=== PATIENT | male | born 1985 | race Caucasian/White ===

== ENCOUNTER 2022-01-24 16:14 | Inpatient (IN) | payer BC, SELFPAY ==
[2022-01-24] VITALS (43 sets, daily range): BP systolic 95–116; BP diastolic 42–81; PULSE 95–109; RESP 11–20; TEMP 36.4–36.7; O2SAT 95–100; BMI 25.9
--- NOTE | ~2022-01-24 | XR_ITS ---
EXAMINATION: XR chest 1V portable DATE: 01/26/2022 06:02 INDICATION: Increased oxygen demands. TECHNIQUE: A single frontal view of the chest was obtained. COMPARISON: Chest single view 01/25/2022, CT abdomen and pelvis 01/24/2022 FINDINGS: There is a small left pleural effusion. There are airspace opacities at left lung base. No pneumothorax. The heart size is normal. A right upper extremity peripherally inserted central venous catheter (PICC) is seen with tip in the superior vena cava. There is an old healed fracture of left c lavicle. IMPRESSION: 1. Stable small left pleural effusion. 2. Stable airspace opacities at left lung base, consistent with atelectasis or less likely pneumonia. Reviewed, dictated and finalized at location A.
--- NOTE | ~2022-01-24 | XR_ITS ---
EXAMINATION: XR chest 1V portable DATE: 01/28/2022 23:26 INDICATION: Shortness of breath. TECHNIQUE: A single frontal view of the chest was obtained. COMPARISON: Chest single view 01/28/2022 FINDINGS: There are airspace opacities in all lung zones bilaterally with a perihilar predominance. T here is a small left pleural effusion. No pneumothorax. The heart size is normal. There is an old hea led left clavicle fracture. A right upper extremity peripherally inserted central venous catheter (PI CC) is seen with tip at the superior cavoatrial junction. IMPRESSION: 1. Worsened diffuse lung disease, consistent with pulmonary edema versus pneumonia. 2. Small left pleural effusion. Reviewed, dictated and finalized at location A. IMPRESSION: 1. Worsened diffuse lung disease, consistent with pulmonary edema versus pneumo john. 2. Small left pleural effusion.
--- NOTE | ~2022-01-24 | XR_ITS ---
EXAMINATION: XR chest 1V portable DATE: 01/30/2022 04:22 INDICATION: Shortness of breath. TECHNIQUE: A single frontal view of the chest was obtained. COMPARISON: Chest single view 01/29/2022, CT abdomen and pelvis 01/24/2022 FINDINGS: There are airspace opacities in all lung zones bilaterally with a perihilar and left basila r predominance. There is a small left pleural effusion. No pneumothorax. The heart size is normal. A right upper extremity peripherally inserted central venous catheter (PICC) is seen with tip at the saha perior cavoatrial junction. There is an old healed fracture of left clavicle. IMPRESSION: 1. Stable diffuse lung disease, consistent with pulmonary edema versus pneumonia. 2. Stable small left pleural effusion. Reviewed, dictated and finalized at location A. IMPRESSION: 1. Stable diffuse lung disease, consistent with pulmonary edema versus pneumoni a. 2. Stable small left pleural effusion.
--- NOTE | ~2022-01-24 | XR_ITS ---
EXAMINATION: XR chest 1V DATE: 01/28/2022 10:26 INDICATION: Hypoxia TECHNIQUE: A lateral view of the chest was obtained. COMPARISON: Frontal view of the chest dated 01/28/2022 at 9:44 AM FINDINGS: Again seen are opacities in the mid and lower lung zones. This is most dense posteriorly with obscura tion of the posterior sulcus consistent with small bilateral pleural effusions. No pneumothorax. IMPRESSION: 1. Small bilateral pleural effusions associated with the previously noted lung disease in the bilater al mid and lower lung zones consistent with pulmonary edema, atelectasis, pneumonia or some combinati on thereof. Reviewed, dictated and finalized at location B. IMPRESSION: 1. Small bilateral pleural effusions associated with the previously noted lung disease in the bilateral mid and lower lung zones consistent with pulmonary arabella ma, atelectasis, pneumonia or some combination thereof.
--- NOTE | ~2022-01-24 | US_ITS ---
US renal BI 01/25/2022 08:24 Procedure: Realtime transabdominal ultrasound of the kidneys and bladder. Indication: Acute renal insufficiency. Comparison: No prior studies for comparison. Findings: Renal echotexture is normal bilaterally without hydronephrosis, contour deforming mass or r enal calculus. The right kidney measures 11.3 cm and left kidney measures 11.4 cm. Bladder is not vi sualized. Incidental note is made of splenomegaly. Spleen measures 18.3 cm. Impression: 1: Unremarkable renal ultrasound. No stones, masses or hydronephrosis. 2: Splenomegaly. Reviewed, dictated and finalized at location A. Impression: 1: Unremarkable renal ultrasound. No stones, masses or hydronephrosis. 2: Splenomegaly.
--- NOTE | ~2022-01-24 | XR_ITS ---
EXAMINATION: XR chest 1V Exam Date/Time: 01/24/2022 18:42 CDT HISTORY: SOB Comparison: 08/11/2010. RESULT: Lines, tubes, and devices: None. Lungs and pleura: Linear and subsegmental left basilar opacities, with volume loss. Left lateral cos tophrenic angle blunting. Cardiomediastinal silhouette: Stable. Other: No acute osseous or upper abdominal finding. IMPRESSION: Left basilar atelectasis. Small left pleural effusion. Reviewed, dictated and finalized at location K.
--- NOTE | ~2022-01-24 | US_ITS ---
EXAMINATION: US paracentesis abd w/image DATE: 01/26/2022 09:36 INDICATION: Ascites. TECHNIQUE: The procedure and its risks, benefits, and alternatives were discussed with the patient. P otential risks discussed included bleeding and infection. The skin was prepped and draped in sterile fashion. 1% lidocaine was used for local anesthesia. Under ultrasound guidance, a 5 Fr catheter with trochar was advanced into the ascites in the left lower quadrant. Fluid was aspirated. The catheter w as removed, and a dressing was applied. There were no immediate complications. FINDINGS: Ultrasound images demonstrate ascites and the catheter within the fluid. IMPRESSION: 1. Successful ultrasound-guided paracentesis yielding 2420 mL of faith-colored fluid. Reviewed, dictated and finalized at location A.
--- NOTE | ~2022-01-24 | XR_ITS ---
EXAMINATION: XR chest 1V portable DATE: 01/31/2022 07:06 INDICATION: Pneumonia. TECHNIQUE: A single frontal view of the chest was obtained. COMPARISON: Chest single view 01/30/2022, chest CT 01/30/2022 FINDINGS: There are airspace opacities in all lung zones bilaterally with a perihilar and left basila r predominance. There is a small left pleural effusion. No pneumothorax. The heart size is normal. A right upper extremity peripherally inserted central venous catheter (PICC) is seen with tip at the saha perior cavoatrial junction. There is an old healed fracture of left clavicle. IMPRESSION: 1. Diffuse lung disease with mild worsening on the right, consistent with pulmonary edema versus pneu monia. 2. Stable small left pleural effusion. Reviewed, dictated and finalized at location A. IMPRESSION: 1. Diffuse lung disease with mild worsening on the right, consistent with pulmo nary edema versus pneumonia. 2. Stable small left pleural effusion.
--- NOTE | ~2022-01-24 | US_ITS ---
US abdomen limited INDICATION: Elevated bilirubin. PROCEDURE: Realtime right upper abdominal ultrasound. COMPARISON: Ultrasound dated 11/09/2008 FINDINGS: The pancreas is normal without focal mass or pancreatic ductal dilation. Liver echotexture is increased. There is a nodular appearance to the liver surface, compatible with cirrhosis. There i s ascites. There is gallbladder wall thickening with sludge. There is to and fro flow in the portal vein which is dilated measuring 15 mm, consistent with portal hypertension. The gallbladder is normal without stones, gallbladder wall thickening or pericholecystic fluid. Comm on bile duct measures 4 mm. No sonographic Rocha's sign. IMPRESSION: 1: Cirrhosis of the liver with portal hypertension. 2: Gallbladder wall thickening with sludge. 3: Ascites. Reviewed, dictated and finalized at location A.
--- NOTE | ~2022-01-24 | XR_ITS ---
EXAMINATION: XR chest 1V portable DATE: 01/28/2022 09:47 INDICATION: Shortness of breath TECHNIQUE: frontal view of the chest was obtained. COMPARISON: Chest radiograph dated 01/26/2022 FINDINGS: Right upper extremity peripherally inserted central venous catheter (PICC) tip at the caudal superio r vena cava. Airspace opacities in the bilateral mid and lower lung zones. There are few curly B-line s at the lateral right lower lung zone consistent with pulmonary edema. No pneumothorax or definitive pleural effusion. The cardiomediastinal silhouette is normal. Old healed left clavicle fracture. IMPRESSION: 1. Mild pulmonary edema with patchy airspace process in the bilateral mid and lower lung zones which could represent moderate more focal alveolar edema, pneumonia, atelectasis or some combination thereo f. Reviewed, dictated and finalized at location B. IMPRESSION: 1. Mild pulmonary edema with patchy airspace process in the bilateral mid and l ower lung zones which could represent moderate more focal alveolar edema, pneum onia, atelectasis or some combination thereof.
--- NOTE | ~2022-01-24 | US_ITS ---
EXAMINATION: US abdomen limited DATE: 01/30/2022 12:40 INDICATION: Ascites. TECHNIQUE: Multiple grayscale ultrasound images of the abdomen were obtained. COMPARISON: None FINDINGS: A survey of the 4 quadrants of the abdomen demonstrates no ascites. IMPRESSION: 1. No ascites. The paracentesis was canceled. Reviewed, dictated and finalized at location A.
--- NOTE | ~2022-01-24 | CT_ITS ---
EXAMINATION: CT chest high resolution wo co DATE: 01/30/2022 17:43 INDICATION: Shortness of breath, concern for pulmonary hemorrhage TECHNIQUE: Computed tomography (CT) of the chest was performed without intravenous contrast. The dose -length product (DLP) was 496.40 mGy-cm. Automated exposure control and iterative reconstruction tech nique were employed. COMPARISON: None FINDINGS: There are widespread patchy groundglass and interstitial opacities throughout all lung zone s. There are small pleural effusions. Dependent atelectasis is noted. A right upper extremity PICC en ds with its tip in the distal superior vena cava. The heart size is normal. There is mediastinal and bilateral hilar lymphadenopathy, likely reactive. No pneumothorax is identified. There are mild age-i ndeterminate thoracic compression fractures. IMPRESSION: 1. Diffuse lung disease, consistent with pulmonary edema and/or pneumonia. Finding could reflect pulm onary hemorrhage given the clinical concern however CT findings are nonspecific. Reviewed, dictated and finalized at location F. IMPRESSION: 1. Diffuse lung disease, consistent with pulmonary edema and/or pneumonia. Find ing could reflect pulmonary hemorrhage given the clinical concern however CT fi ndings are nonspecific.
--- NOTE | ~2022-01-24 | XR_ITS ---
XR chest 1V portable 01/25/2022 14:13 Indication: Shortness of breath Procedure: AP portable chest Comparison: Comparison to multiple prior studies sequentially, with oldest reviewed study dated 07/31. Findings: Bilateral perihilar airspace disease. There is peribronchial thickening. PICC line tip in t he SVC. Small left effusion. No pneumothorax. Impression: 1: Bilateral perihilar airspace disease may represent edema or pneumonia. 2: Small left pleural effusion. Reviewed, dictated and finalized at location A. Impression: 1: Bilateral perihilar airspace disease may represent edema or pneumonia. 2: Small left pleural effusion.
--- NOTE | ~2022-01-24 | XR_ITS ---
EXAMINATION: XR chest 1V portable INDICATION: Shortness of breath TECHNIQUE: Portable AP chest at 1757 hours COMPARISON: 01/28/2022 FINDINGS: Diffuse opacities persist in all lung zones with slight interval worsening. There is a smal l left pleural effusion. No pneumothorax is identified. The heart size is normal. A right upper extre mity PICC ends with its tip in the distal superior vena cava. IMPRESSION: 1. Diffuse lung disease with interval worsening, consistent with pneumonia and/or pulmonary edema. 2. Small left pleural effusion. Reviewed, dictated and finalized at location F. IMPRESSION: 1. Diffuse lung disease with interval worsening, consistent with pneumonia and/ or pulmonary edema. 2. Small left pleural effusion.
--- NOTE | ~2022-01-24 | XR_ITS ---
XR chest PICC line 01/25/2022 09:32 Indication: PICC line insertion Procedure: AP portable chest Comparison: Comparison to multiple prior studies sequentially, with oldest reviewed study dated 11/06. Findings: Heart size normal. There are bilateral diffuse interstitial infiltrates. Small left pleural effusion. No pneumothorax. Healed left clavicular fracture. No acute osseous abnormality. PICC line tip in the SVC. Impression: 1: Diffuse bilateral interstitial infiltrates which may represent edema or pneumonia. Reviewed, dictated and finalized at location A. Impression: 1: Diffuse bilateral interstitial infiltrates which may represent edema or pneu monia.
--- NOTE | ~2022-01-24 | CT_ITS ---
EXAMINATION: CT abdomen pelvis w con DATE: 01/24/2022 18:40 INDICATION: diffuse abd pain TECHNIQUE: Computed tomography (CT) of the abdomen and pelvis was performed with 100 mL Omnipaque-350 intravenous contrast. Automated exposure control and iterative reconstruction technique were employe d. The dose-length product was 1162.08 mGy-cm. COMPARISON: 05/16/2007, report not available. FINDINGS: Evaluation of the upper abdomen, particularly liver, limited by beam hardening from arm positioning. Lower thorax: Left basilar atelectasis. Small left pleural effusion. Liver: Heterogeneous, hypodense, nodular appearing liver. Multiple areas of potential liver cysts or other lesions, poorly evaluated. Biliary/Gallbladder: Gallbladder is normal. No bile duct dilation. Pancreas: No mass or duct dilation. Spleen: Enlarged. Adrenals:No mass. Kidneys: No mass, stone, or hydronephrosis. GI tract: No small or large bowel dilation. Normal appendix. Mesentery/Peritoneum: No ascites, mass, or free air. Retroperitoneum: No mass. Pelvis: Pelvic organs are within normal limits. Soft Tissues: Body wall edema Bones: Mild superior endplate deformity at T8 and T9, otherwise no acute osseous finding. IMPRESSION: Small left pleural effusion. Cirrhosis, with portal hypertension. Possible liver lesions, consider no nemergent, outpatient MR of the liver for further evaluation. Moderate ascites. Mild body wall edema. Presumed old mild compression deformities at T8 and T9, unless accompanied by pain/tenderness. Reviewed, dictated and finalized at location K. IMPRESSION: Small left pleural effusion. Cirrhosis, with portal hypertension. Possible live r lesions, consider nonemergent, outpatient MR of the liver for further evaluat ion. Moderate ascites. Mild body wall edema. Presumed old mild compression defo rmities at T8 and T9, unless accompanied by pain/tenderness.
--- NOTE | 2022-01-24 17:07 | ED.WEAKNESS ---
HPI - Weakness General Chief complaint: Weakness <BENJI Mckeon Last Filed: 01/24/22 22:55> Stated complaint: fatigue, difficulty walking <Ban Hernandez PA-C - Last Filed: 01/24/22 22:55> Time Seen by Provider: 01/24/22 16:55 <BENJI Mckeon Last Filed: 01/24/22 22:55> History of Present Illness HPI Narrative: Patient is a 36-year-old male here for evaluation of weakness over the past week. Patient was diagnosed with liver failure in July of this year at a hospital in [place]. Patient is a poor historian is unsure how he was diagnosed or why; he has not had any follow-up since discharge from the hospital as he is new to the area. He does note history of alcohol use and is still drinking alcohol, most recently 2 weeks ago. Over the past week, he has reported increased weakness, making it difficult to walk. He also notes shortness of breath with exertion but also at rest which is new over the past week, in addition to bilateral lower extremity swelling and calf cramping. No orthopnea or chest pain. Additionally notes increased from baseline yellow discoloration to skin and eyes. Additionally notes blood in his stool over the past week. <Ban Hernandez PA-C - Last Filed: 01/24/22 22:55> Related Data Home medications: Home Medications Medication Instructions Recorded Confirmed buspirone 5 mg tablet 5 mg PO BID 01/24/22 01/24/22 gabapentin 300 mg capsule 300 mg PO HS 01/24/22 01/24/22 hydroxyzine HCl 25 mg tablet 25 mg PO HS 01/24/22 01/24/22 levetiracetam 1,000 mg tablet 1,000 mg PO BID 01/24/22 01/24/22 omeprazole 40 mg capsule,delayed 40 mg PO DAILY 01/24/22 01/24/22 release trazodone 50 mg tablet 50 mg PO HS 01/24/22 01/24/22 <BENJI Mckeon Last Filed: 01/24/22 22:55> Allergies/Adverse reactions: Allergies Allergy/AdvReac Type Severity Reaction Status Date / Time No Known Allergies Allergy Verified 01/24/22 22:13 <Ban Hernandez PA-C - Last Filed: 01/24/22 22:55> Review of Systems Review of Systems: Gen.: Reports weakness. Denies fevers or chills Eyes: Reports icterus. Denies eye pain or visual change ENT: Denies congestion Respiratory: Reports shortness of breath. Denies cough CV: Denies chest pain or palpitations GI: Reports abdominal pain and nausea. Denies emesis or diarrhea denies burning, urgency, frequency or hematuria Musculoskeletal: Reports lower extremity swelling and pain. Denies back pain or muscle pain Neuro: Denies numbness, tingling, weakness or focal weakness Skin: Reports jaundice. Denies rash Except as documented, all other systems reviewed and negative <BENJI Mckeon Last Filed: 01/24/22 22:55> [facility]LY [facility] Family History Family History: Family History Other Patient denies significant medical history <BENJI Mckeon Last Filed: 01/24/22 22:55> Social History Social History: Social History Smoking packs per day: 0.4 Smoking cigarettes per day: 8.0 Years smoked: 7 Smoking pack-years: 2.80 Smoking status: Former smoker Tobacco type: cigarettes Second hand tobacco smoke exposure: No Alcohol intake: former Drinks per week: 7 Substance use: never Substance use type: does not use Spiritual care concerns: No <BENJI Mckeon Last Filed: 01/24/22 22:55> Exam Narrative: APPEARANCE: Ill-appearing, jaundice, icterus Head: Normocephalic and atraumatic. EYES: Scleral icterus. PERRLA/EOMI NOSE: No nasal drainage EARS: External ear normal in appearance THROAT: Oropharynx is clear. Mucous membranes are moist. NECK: Supple. No adenopathy, no masses. RESPIRATORY: Airway patent, respirations nonlabored. Clear to auscultation bilaterally, no rales, rhonchi, wheezing. CARDIOVASCULAR: Tachycardic. Regular rhythm without murmurs, rubs, or gallops. ABDOMI
--- NOTE | 2022-01-24 17:08 | ECG_ITS ---
Measurements Intervals [place] Rate: 96 P: 44 NV: 121 QRS: 67 QRSD: 108 T: 17 QT: 468 QTc: 593 Interpretive Statements SINUS RHYTHM DIFFUSE NONSPECIFIC ST AND T ABNORMALITY ABNORMAL ECG NO PREVIOUS ECG AVAILABLE FOR COMPARISON Electronically Signed On 01-25-2022 10:16:07 CDT by aMdi Hair M.D.
[2022-01-24 17:21] LABS: Basophils Percent Auto 0.4 % (0.2-1.2); Eosinophils Absolute Auto 0.3 K/mm3 (0-0.3); Eosinophils Percent Auto 3.6 % (0-4.4); Immature Granulocyte Absolute 0.05 K/mm3 (0.00-0.031); Immature Granulocyte Percent A 0.7 % (0-0.5); Immature Platelet Fraction Pct 4.8 % (0.9-11.2); Lymphocytes Percent Auto 19.4 % (18.3-44.2); Mean Corpuscular Hemoglobin 19.8 pg (26-34); Mean Corpuscular Volume 63.8 fl (80-100); Monocytes Absolute Auto 0.7 K/mm3 (0.1-0.6); Monocytes Percent Auto 10.1 % (2.6-8.5); Neutrophils Absolute Auto 4.7 K/mm3 (1.3-6.7); Neutrophils Percent Auto 65.8 % (45.5-73.1); Platelet Count Result 162 k/mm3 (150-375); Red Blood Count 2.93 M/mm3 (4.6-6.20); Red Cell Distribution Width 28.2 % (11.5-14.5); White Blood Count 7.2 K/mm3 (4.5-10.0)
[2022-01-24 17:31] LABS: Ammonia 72 umol/L (9-30); Hemoglobin 5.8 g/dL (14.0-18.0)
[2022-01-24 17:31] LABS: Lactic Acid Reflex 1.9 mmol/L (0.7-2.0)
[2022-01-24 17:32] LABS: Hematocrit 18.7 % (42.0-52.0); Platelet Estimate Adequate (Adequate)
--- NOTE | 2022-01-24 17:32 | PC.NURSE ---
Patient states he has been having decreased urine output. Given urinal to provide specimen, refusing catheter at this time.
[2022-01-24 17:33] LABS: Microcytosis 2+ (NORMAL); Ovalocytes 2+ (NORMAL); Poikilocytosis 1+ (NORMAL); Schistocytes None Seen (NORMAL); Target Cells 2+ (NORMAL)
[2022-01-24 17:37] LABS: Alanine Aminotransferase 26 U/L (6-50); Albumin Level 2.5 g/dL (3.5-5.1); Alkaline Phosphatase 158 U/L (38-126); Anion Gap 14 mmol/L (8-16); Aspartate Amino Transferase 58 U/L (17-59); Bilirubin,Total 7.8 mg/dL (0.2-1.3); Blood Urea Nitrogen 23 mg/dL (9-20); Calcium 6.4 mg/dL (8.4-10.2); Carbon Dioxide 29 mmol/L (22-30); Chloride 80 mmol/L (98-107); Estimated CRCL calculation 63 ml/min; Estimated Glomerular Filt Rate 46; Glucose 113 mg/dL (65-110); Lipase 230 U/L (23-300); Potassium < 2.0 mmol/L (3.4-5.0); Sodium 123 mmol/L (137-145)
[2022-01-24 17:41] LABS: NT Pro B Type Natriuretic Pept 2120 pg/mL (5-100)
[2022-01-24 17:43] LABS: Prothrombin Time 21.6 Seconds (11.1-14.7)
[2022-01-24 17:44] LABS: Partial Thromboplastin Time 41.5 SECONDS (22.3-36.8)
[2022-01-24 17:55] LABS: SARS-CoV-2 RNA PCR Negative
[2022-01-24] MEDS: POTASSIUM CHLORIDE INJ 40 MEQ in SODIUM CHLORIDE 0.9% IV 500 ML 115 MEQ IVPB (18:06)
[2022-01-24] MEDS: POTASSIUM CHLORIDE 20 MEQ TABLET 40 MEQ PO (18:07)
[2022-01-24] MEDS: SODIUM CHLORIDE 0.9% IV 1,000 ML 100 ML IV CONT (18:07)
[2022-01-24 18:25] LABS: Add Urine Microscopic? YES; Appearance Urine Clear (Clear); Bacteria Urine Trace /hpf; Bilirubin Urine Negative (Negative); Blood Urine Negative (Negative); Color Urine Amber (Yellow); Glucose Urine UA Negative (Negative); Hyaline Casts Urine 30-49 /lpf; Ketones Urine Negative (Negative); Leukocyte Esterase Ur Negative LEU/UL (Negative); Mucus Urine Rare /lpf; Nitrate Urine Negative (Negative); Protein Urine Negative (Negative); RBC Urine 0-2 /hpf (0-2); Specific Grav Ur 1.016 (1.001-1.035); Squamous Epithelial Cell Urine Rare /hpf (Few)
--- NOTE | 2022-01-24 18:27 | PC.NURSE ---
Patient to CT on portable monitor
--- NOTE | 2022-01-24 18:53 | PC.NURSE ---
Patient back from radiology
[2022-01-24 19:08] LABS: Magnesium 1.1 mg/dL (1.6-2.3); Phosphorus 3.6 mg/dL (2.5-4.5)
[2022-01-24 19:26] LABS: Troponin I 0.177 ng/mL (0.000-0.034)
--- NOTE | 2022-01-24 20:21 | PM.IMHP ---
H&P: HPI History of Present Illness Date/Time: 01/24/22 20:21 Chief Complaint: Generalized weakness Narrative: This is a 36-year-old male with past medical history significant for hepatic cirrhosis, patient used to drink a 6 pack of beer and a fire ball daily, states that he has been sober since July however had a drink 2 weeks ago, smokes cigarettes sporadically, patient has been very weak, has noticed bright red blood per rectum for the last week or so, denies melena, hematemesis, denies nausea, denies vomiting, denies fevers rigors chills cough sputum production notice increased abdominal girth and worsening bilateral lower extremity edema and yellow discoloration of the skin. Patient has had poor appetite and poor oral intake as well denies abdominal pain. Preliminary workup was significant for chemistry panel sodium 123, chloride 80, potassium less than 2, BUN 23 creatinine 1.7, total bilirubin 7.8, brain natriuretic peptide 2120, troponins x3 0.177/ 0.204/ 0.192, magnesium 1.1, CT of abdomen and pelvis was reported as: IMPRESSION: Small left pleural effusion. Cirrhosis, with portal hypertension. Possible liver lesions, consider nonemergent, outpatient MR of the liver for further evaluation. Moderate ascites. Mild body wall edema. Presumed old mild compression deformities at T8 and T9, unless accompanied by pain/tenderness. a chest x-ray was reported as: IMPRESSION: Left basilar atelectasis. Small left pleural effusion. Patient has been admitted for further evaluation management and treatment. Review of Systems Review of Systems: generalized weakness, poor appetite, increased abdominal girth, bilateral lower extremity edema, bright red blood per rectum, yellow discoloration of the skin and eyes. Constitutional: Constitutional: Denies chills, Reports fatigue, Denies fever(s), Reports lethargy, Denies malaise, Denies night sweats, Reports poor appetite and Reports weakness Eyes: Eyes: Denies change in vision and Reports other ( Icterus) ENT: Denies dysphagia, Denies vertigo, Denies dizziness and Denies odynophagia Cardiovascular: Cardiovascular: Denies chest pain, Denies syncope, Denies irregular heart rhythm, Denies lightheadedness, Denies palpitations and Denies dyspnea on exertion Respiratory: Respiratory: Denies cough Gastrointestinal: Gastrointestinal: Denies abdominal pain, Denies melena, Reports hematochezia, Denies coffee ground emesis, Denies dyspepsia, Denies heartburn, Denies diarrhea, Denies nausea and Denies vomiting Genitourinary: Genitourinary: Denies dysuria Musculoskeletal: Musculoskeletal: Denies back pain, Denies myalgias, Denies joint swelling and Reports muscle weakness Integumentary/Breasts: Skin/Breast: Reports jaundice Neurologic: Denies focal weakness and Denies Sensory deficit (Neuro) Psychiatric: Psychiatric: Reports no additional psychiatric complaints and Reports as per HPI Endocrine: Endocrine: Denies cold intolerance, Denies flushing, Denies heat intolerance, Denies polyphagia, Denies polydipsia and Denies palpitations Hematologic/Lymphatic: Hematologic/Lymphatic: Reports no additional hematologic/lymphatic complaints and Reports as per HPI Allergic/Immunologic: Allergic/Immunologic: Reports no additional allergic/immunologic complaints and Reports as per HPI FORMERLY [facility] Family History Family History Other Patient denies significant medical history Social History Social History Smoking packs per day: 0.4 Smoking cigarettes per day: 8.0 Years smoked: 7 Smoking pack-years: 2.80 Smoking status: Former smoker Tobacco type: cigarettes Second hand tobacco smoke exposure: No Alcohol intake: former Drinks per week: 7 Substance use: never Substance use type: does not use Spiritual care concerns: No Meds Home Medications and Allergies Home Medications Medication Instructions Recorded Confi
[2022-01-24] MEDS: MAGNESIUM SULFATE 3GM/D5W100ML 3 GM/100 ML BAG IVPB (20:34)
[2022-01-24] MEDS: PANTOPRAZOLE SODIUM IV 40 MG VIAL 80 MG IV PUSH (20:35)
[2022-01-24] MEDS: SODIUM CHLORIDE 0.9% IV 250 ML 30 ML IV CONT (20:35)
[2022-01-24] MEDS: levETIRAcetam 500 MG TABLET 1000 MG PO (21:09)
--- NOTE | 2022-01-24 22:43 | ADMGEN ---
This patient, Gee Buckley, was admitted to IMU Room 210-01 on 01/24/22 at 2200. Patient/family oriented to hospital policies and general routines including ID bracelet, bed and alarms, visiting hours, pain management, procedures, bathroom and other care routines, personal items, smoking policy, room service/diet, and visiting hours. Information on how to activate the Rapid Response Team has been discussed. Patient/Family are encouraged to report perceived risks to care and to ask questions if they do not understand what they are told or what they should do.
[2022-01-24 22:53] LABS: Troponin I 0.204 ng/mL (0.000-0.034)
[2022-01-24] MEDS: cefTRIAXone 2 GM in SODIUM CHLORIDE 0.9% IV 100 ML 200 ML IVPB (23:20)
[2022-01-25] VITALS (26 sets, daily range): BP systolic 101–150; BP diastolic 40–64; PULSE 74–105; RESP 14–20; TEMP 36.5–37.7; O2SAT 93–99
[2022-01-25 01:42] LABS: Troponin I 0.192 ng/mL (0.000-0.034)
[2022-01-25] MEDS: busPIRone HCL 5 MG TABLET PO ×3 (02:03→21:19)
[2022-01-25] MEDS: hydrOXYzine HCL 25 MG TABLET PO ×2 (02:03→21:19)
[2022-01-25] MEDS: GABAPENTIN 300 MG CAPSULE PO ×2 (02:03→21:19)
[2022-01-25] MEDS: traZODone HCL 50 MG TABLET PO ×2 (02:03→21:19)
[2022-01-25] MEDS: THIAMINE HCL INJ 100 MG, FOLIC ACID INJ 1 MG, MULTIVITAMINS-12 INJ VIAL 1 5 ML, MULTIVI... IV CONT (02:04)
[2022-01-25 05:07] LABS: Basophils Percent Auto 0.6 % (0.2-1.2); Eosinophils Absolute Auto 0.3 K/mm3 (0-0.3); Eosinophils Percent Auto 4.5 % (0-4.4); Hematocrit 21.1 % (42.0-52.0); Immature Granulocyte Absolute 0.04 K/mm3 (0.00-0.031); Immature Granulocyte Percent A 0.6 % (0-0.5); Immature Platelet Fraction Pct 3.8 % (0.9-11.2); Lymphocytes Absolute Auto 1.39 K/mm3 (0.9-3.2); Lymphocytes Percent Auto 22.5 % (18.3-44.2); Mean Corpuscular HGB Conc 32.7 g/dl (32-36); Mean Corpuscular Hemoglobin 21.8 pg (26-34); Mean Corpuscular Volume 66.6 fl (80-100); Monocytes Absolute Auto 0.7 K/mm3 (0.1-0.6); Monocytes Percent Auto 10.5 % (2.6-8.5); Neutrophils Absolute Auto 3.8 K/mm3 (1.3-6.7); Neutrophils Percent Auto 61.3 % (45.5-73.1); Platelet Count Result 132 k/mm3 (150-375); Red Blood Count 3.17 M/mm3 (4.6-6.20); White Blood Count 6.2 K/mm3 (4.5-10.0)
[2022-01-25 05:18] LABS: Alanine Aminotransferase 25 U/L (6-50); Albumin Level 2.1 g/dL (3.5-5.1); Alkaline Phosphatase 148 U/L (38-126); Anion Gap 5 mmol/L (8-16); Aspartate Amino Transferase 53 U/L (17-59); Bilirubin,Total 7.4 mg/dL (0.2-1.3); Blood Urea Nitrogen 23 mg/dL (9-20); Calcium 6.5 mg/dL (8.4-10.2); Carbon Dioxide 28 mmol/L (22-30); Chloride 88 mmol/L (98-107); Estimated CRCL calculation 83 ml/min; Estimated Glomerular Filt Rate > 60; Glucose 104 mg/dL (65-110); Magnesium 1.8 mg/dL (1.6-2.3); Potassium 2.4 mmol/L (3.4-5.0); Sodium 121 mmol/L (137-145)
[2022-01-25 05:38] LABS: Hemoglobin 6.9 g/dL (14.0-18.0)
[2022-01-25] MEDS: ALBUMIN HUMAN 25% 25 GM/100 ML 200 ML IVPB ×2 (05:40→15:22)
[2022-01-25 05:55] LABS: Platelet Estimate Decreased (Adequate)
[2022-01-25 05:56] LABS: Hypochromasia 2+ (NORMAL)
[2022-01-25 05:57] LABS: Target Cells 1+ (NORMAL)
[2022-01-25 05:58] LABS: Ovalocytes 1+ (NORMAL)
[2022-01-25] MEDS: POTASSIUM CHLORIDE 20 MEQ TABLET 40 MEQ PO ×3 (06:44→21:19)
[2022-01-25] MEDS: MAGNESIUM SULF 2 GM/WATER 50ML 2 GM/50 ML BAG IVPB (07:02)
[2022-01-25] MEDS: PANTOPRAZOLE SODIUM IV 40 MG VIAL IV PUSH ×2 (09:55→21:18)
[2022-01-25] MEDS: POTASSIUM CHLORIDE INJ 40 MEQ in SODIUM CHLORIDE 0.9% IV 500 ML 130 MEQ IVPB (09:55)
[2022-01-25] MEDS: FOLIC ACID 1 MG/0.2 ML INJ IV PUSH (09:56)
[2022-01-25] MEDS: levETIRAcetam 500 MG TABLET 1000 MG PO ×2 (09:56→21:19)
--- NOTE | 2022-01-25 10:41 | WPDGICN ---
Assessment and Plan Assessment and plan (1) Cirrhosis: Code(s): K74.60 - Unspecified cirrhosis of liver Status: Acute Assessment and Plan: Patient has alcoholic cirrhosis of liver by history this appears be confirmed by CT examination. Plan is for supportive care. Given his ascites paracentesis will be performed. Low-salt diet and low-dose Aldactone will be started. Fluid restriction is indicated because of hyponatremia at present. Because ammonia is elevated we will also add lactulose. He although mentation appears appropriate present. Strict alcohol avoidance strongly encouraged in this patient. (2) Alcohol dependence: Code(s): F10.20 - Alcohol dependence, uncomplicated Status: Acute Assessment and Plan: Alcohol rehab for avoid strongly encouraged. Supportive care would be beneficial. (3) Hypochromic microcytic anemia: Code(s): D50.9 - Iron deficiency anemia, unspecified Status: Acute Assessment and Plan: Patient with rather profound microcytic anemia. Suspicious for iron deficiency. Patient does have rectal bleeding which likely contributes. Suspect baseline anemia given his profound liver disease. EGD will be performed in the morning to exclude varices. Colonoscopy will be deferred until electrolytes are improved to some degree. Hopefully over the next several days. Patient reports previous endoscopies in the spring of this year elsewhere were unremarkable. Old records will be requested. (4) Ascites: Code(s): R18.8 - Other ascites Status: Acute Assessment and Plan: Patient with ascites clinically as well as by radiologic exam. Plan for diagnostic paracentesis. Low-salt diet and low dose diuretics will be started. GI Consult Note Consult date/time: 01/25/22 10:41 Reason for consult: Alcoholic cirrhosis. HPI: Gee Buckley is a 36 year old male I am asked to see because of alcoholic cirrhosis of the liver. Patient reports that he was diagnosed as having cirrhosis secondary to alcohol use in [place] in August of this year. Patient hospitalized. Apparently had GI endoscopies that were unremarkable. He reports he had an anal fissure that account for some blood loss. Patient eventually discharged from the hospital however he continued to drink alcohol. Repeat ports no recent alcohol over recent weeks. He did well until the last several days when he became very weak and for this reason presented to the emergency room. States his noticed increasing abdominal girth. Patient does have ongoing heartburn for which she takes pantoprazole. We history is noncontributory. In the emergency room patient found to have profound electrolyte imbalance and profound microcytic anemia. Patient reports he has had some bright red blood per rectum id mixed with stools over the last several days. Review of Systems Review of Systems: Review of systems noncontributory. [facility] Family History Family History Other Patient denies significant medical history Social History Social History Smoking packs per day: 0.4 Smoking cigarettes per day: 8.0 Years smoked: 7 Smoking pack-years: 2.80 Smoking status: Former smoker Tobacco type: cigarettes Second hand tobacco smoke exposure: No Alcohol intake: former Drinks per week: 7 Substance use: never Substance use type: does not use Spiritual care concerns: No Meds Home Medications and Allergies Home Medications Medication Instructions Recorded Confirmed Type buspirone 5 mg tablet 5 mg PO BID 01/24/22 01/24/22 History gabapentin 300 mg capsule 300 mg PO HS 01/24/22 01/24/22 History hydroxyzine HCl 25 mg tablet 25 mg PO HS 01/24/22 01/24/22 History levetiracetam 1,000 mg tablet 1,000 mg PO BID 01/24/22 01/24/22 History omeprazole 40 mg capsule,delayed 40 mg PO DAILY 01/24/22 01/24/22 History release
[2022-01-25 11:14] LABS: Bilirubin Direct 1.9 mg/dL (0-0.3); Bilirubin Indirect 2.4 mg/dL (0-1.1)
--- NOTE | 2022-01-25 12:26 | PM.IMPN ---
Progress Note: A&P Assessment and Plan (1) GI bleed: Code(s): K92.2 - Gastrointestinal hemorrhage, unspecified Status: Acute (2) Decompensated hepatic cirrhosis: Code(s): K72.90 - Hepatic failure, unspecified without coma; K74.60 - Unspecified cirrhosis of liver Status: Acute (3) Hyponatremia: Code(s): E87.1 - Hypo-osmolality and hyponatremia Status: Acute (4) Hypokalemia: Code(s): E87.6 - Hypokalemia Status: Acute (5) Hypomagnesemia: Code(s): E83.42 - Hypomagnesemia Status: Acute (6) Hypochromic microcytic anemia: Code(s): D50.9 - Iron deficiency anemia, unspecified Status: Acute (7) Congestive heart failure: Code(s): I50.9 - Heart failure, unspecified Status: Acute (8) Elevated troponin: Code(s): R77.8 - Other specified abnormalities of plasma proteins Status: Acute (9) Acute renal failure: Code(s): N17.9 - Acute kidney failure, unspecified Status: Acute (10) Tobacco dependence: Code(s): F17.200 - Nicotine dependence, unspecified, uncomplicated Status: Acute (11) Alcohol dependence: Code(s): F10.20 - Alcohol dependence, uncomplicated Status: Acute Plan Generalized weakness Bright red blood per rectum EGD in August 2021 with no varices. GI consulted. Will on octreotide drip and Protonix IV b.i.d. Acute on chronic blood loss anemia baseline hemoglobin August 2021 was 8. Admission hemoglobin 5.8. EGD in September 05 negative but anal fissure on colonoscopy History of alcohol abuse could it several months ago last drink 2 weeks ago Cirrhosis of liver diagnosed July 2021 Ascites. Small left pleural effusion signs of portal hypertension albumin infusion the water restriction diuresis started Severe hypokalemia: Replace recheck and monitor Acute kidney injury creatinine 1.7. Renal ultrasound negative for hydronephrosis. Hyperbilirubinemia due to underlying cirrhosis abnormal CT with possible lesions. check alpha fetoprotein Hyperammonemia lactulose added Coagulopathy. INR 2 Elevated troponin serial flat likely related to all the other medical issues. Echo order. Cardiology consulted. Hypo magnesium replacing monitor Tobacco dependence DVT prophylaxis SCDs Code status full code PICC line placed for IV access Subjective Date/time seen: 01/25/22 12:26 Interval history: This is a 36-year-old male with past medical history significant for hepatic cirrhosis, patient used to drink a 6 pack of beer and a fire ball daily, states that he has been sober since July however had a drink 2 weeks ago,? smokes cigarettes sporadically, patient has been very weak, has noticed bright red blood per rectum for the last week or so, denies melena, hematemesis, denies nausea, denies vomiting, denies fevers rigors chills cough sputum production notice increased abdominal girth and worsening bilateral lower extremity edema and yellow discoloration of the skin. Patient has had poor appetite and poor oral intake as well denies abdominal pain.? Preliminary workup was significant for chemistry panel sodium 123, chloride 80, potassium? less than 2, BUN 23 creatinine 1.7, total bilirubin 7.8,? brain natriuretic peptide 2120,? troponins x3 0.177/ 0.204/ 0.192, magnesium 1.1,? CT of abdomen and pelvis was reported as: IMPRESSION: Small left pleural effusion. Cirrhosis, with portal hypertension. Possible liver lesions, consider nonemergent, outpatient MR of the liver for further evaluation. Moderate ascites. Mild body wall edema. Presumed old mild compression deformities at T8 and T9, unless accompanied by pain/tenderness. ?a chest x-ray was reported as: IMPRESSION: Left basilar atelectasis. Small left pleural effusion. ?Patient has been admitted for further evaluation management and treatment. 11/25/2021 no overnight events. Denies any pain feels tired. No further blood in stool since admitted. Review of Sy
--- NOTE | 2022-01-25 13:15 | P.CONNP_ITS ---
Assessment and Plan Assessment and plan (1) Acute renal failure: Code(s): N17.9 - Acute kidney failure, unspecified Status: Acute Assessment and Plan: * appears to be resolving with supportive therapy * suspect volume depletion due to poor oral intake * despite outward signs of edema, probably has a component intravascular volume depletion * follow-up on urine electrolytes and renal ultrasound * follow I/Os * consider trial of gentle IVF depending on trend of sodium level * trend labs (2) Hyponatremia: Code(s): E87.1 - Hypo-osmolality and hyponatremia Status: Acute Assessment and Plan: * several possible etiologies: * volume depletion * medications [omeprazole (PPI) or buspirone] * liver disease (prone to causing pre-renal azotemia) * free water restriction * would try to avoid salt tabs * consider gentle normal saline IVFs * follow-up on urine electrolytes * check TSH, cortisol, SPEP, UPEP, and urine/serum osomolality * follow trend of repeat sodium levels (3) Hypokalemia: Code(s): E87.6 - Hypokalemia Status: Acute Assessment and Plan: * suspect total body store depleted state * hypomagnesemia possibly playing a role * aggressive replacement PRN (4) Anemia: Code(s): D64.9 - Anemia, unspecified Status: Acute Assessment and Plan: * suspect GI bleed * GI following * endoscopy tomorrow * follow trend of H/H (5) Cirrhosis: Code(s): K74.60 - Unspecified cirrhosis of liver Status: Acute Assessment and Plan: * alcoholic cirrhosis of liver by history and imaging * GI recommendations noted * diagnostic paracentesis Long and extensive discussion (> 20 minutes) with the patient and his at bedside regarding all of the above issues. Will continue to follow. History of Present Illness Reason for Consult Consult date: 01/25/22 Reason for consult: acute renal failure and hyponatremia Chief Complaint Chief complaint: hypokalemia, anemia, liver failure History of Present Illness Narrative: The patient is a 36-year-old male with a past medical history as outlined below who presented to [facility] Emergency room for further evaluation of profound weakness The patient states that he has been extremely weak for the last week that seems to be progressively getting worse. In association with this weakness is the fact that he has noticed bright red blood per rectum for the same duration of time. He denies any melena or hematemesis or for that matter any other GI symptoms with regard to nausea or vomiting. He denies any fevers, chills, cough, or sputum production but he does note increasing abdominal girth and worsening lower extremity edema in association with jaundice. Furthermore, he reports poor oral intake and a poor appetite as well. Workup and evaluation emergency room demonstrated the patient to be hemodynamically stable with a routine blood test demonstrated hyponatremia, hypochloremia, hypokalemia, and acute kidney injury/acute renal failure with a creatinine of 1.7 mg/dL. His CBC demonstrated significant anemia as well. CT scan of the abdomen pelvis was significant for small left pleural effusion, liver cirrhosis, portal hypertension, and moderate ascites. Given his constellation of symptoms in conjunction with his laboratory abnormalities as mentioned, he was admitted the hospital for further evaluation and therapy. Since his admission, repeat sodium levels have improved to some degree after receive some IV fluids in
--- NOTE | 2022-01-25 13:15 | PM.CNNEP ---
Assessment and Plan Assessment and plan (1) Acute renal failure: Code(s): N17.9 - Acute kidney failure, unspecified Status: Acute Assessment and Plan: appears to be resolving with supportive therapy suspect volume depletion due to poor oral intake despite outward signs of edema, probably has a component intravascular volume depletion follow-up on urine electrolytes and renal ultrasound follow I/Os consider trial of gentle IVF depending on trend of sodium level trend labs (2) Hyponatremia: Code(s): E87.1 - Hypo-osmolality and hyponatremia Status: Acute Assessment and Plan: several possible etiologies: volume depletion medications [omeprazole (PPI) or buspirone] liver disease (prone to causing pre-renal azotemia) free water restriction would try to avoid salt tabs consider gentle normal saline IVFs follow-up on urine electrolytes check TSH, cortisol, SPEP, UPEP, and urine/serum osomolality follow trend of repeat sodium levels (3) Hypokalemia: Code(s): E87.6 - Hypokalemia Status: Acute Assessment and Plan: suspect total body store depleted state hypomagnesemia possibly playing a role aggressive replacement PRN (4) Anemia: Code(s): D64.9 - Anemia, unspecified Status: Acute Assessment and Plan: suspect GI bleed GI following endoscopy tomorrow follow trend of H/H (5) Cirrhosis: Code(s): K74.60 - Unspecified cirrhosis of liver Status: Acute Assessment and Plan: alcoholic cirrhosis of liver by history and imaging GI recommendations noted diagnostic paracentesis Long and extensive discussion (> 20 minutes) with the patient and his at bedside regarding all of the above issues. Will continue to follow. History of Present Illness Reason for Consult Consult date: 01/25/22 Reason for consult: acute renal failure and hyponatremia Chief Complaint Chief complaint: hypokalemia, anemia, liver failure History of Present Illness Narrative: The patient is a 36-year-old male with a past medical history as outlined below who presented to [facility] Emergency room for further evaluation of profound weakness The patient states that he has been extremely weak for the last week that seems to be progressively getting worse. In association with this weakness is the fact that he has noticed bright red blood per rectum for the same duration of time. He denies any melena or hematemesis or for that matter any other GI symptoms with regard to nausea or vomiting. He denies any fevers, chills, cough, or sputum production but he does note increasing abdominal girth and worsening lower extremity edema in association with jaundice. Furthermore, he reports poor oral intake and a poor appetite as well. Workup and evaluation emergency room demonstrated the patient to be hemodynamically stable with a routine blood test demonstrated hyponatremia, hypochloremia, hypokalemia, and acute kidney injury/acute renal failure with a creatinine of 1.7 mg/dL. His CBC demonstrated significant anemia as well. CT scan of the abdomen pelvis was significant for small left pleural effusion, liver cirrhosis, portal hypertension, and moderate ascites. Given his constellation of symptoms in conjunction with his laboratory abnormalities as mentioned, he was admitted the hospital for further evaluation and therapy. Since his admission, repeat sodium levels have improved to some degree after receive some IV fluids in the emergency room as well as IV albumin since his admission. He has some swelling and edema with the presumption of volume overload although his history would suggest that he may have some component of intravascular volume depletion. In any case, despite the a for mentioned hyponatremia, he appears to have no neurological sequelae or symptoms related to this issue/problem. Renal consultation was requested due t
[2022-01-25 13:49] LABS: Anion Gap 6 mmol/L (8-16); Blood Urea Nitrogen 22 mg/dL (9-20); Carbon Dioxide 28 mmol/L (22-30); Chloride 91 mmol/L (98-107); Estimated CRCL calculation 106 ml/min; Estimated Glomerular Filt Rate > 60; Glucose 110 mg/dL (65-110); Potassium 2.9 mmol/L (3.4-5.0); Sodium 125 mmol/L (137-145)
[2022-01-25 14:51] LABS: Hepatitis B Surface Antigen Negative (Negative)
[2022-01-25 14:57] LABS: HAV RESULT Negative (Negative); Hepatitis B Core IgM Result Negative (Negative)
[2022-01-25 15:08] LABS: Hepatitis C Virus Antibody Negative (Negative)
[2022-01-25] MEDS: FUROSEMIDE INJ 40 MG/4 ML VIAL IV PUSH (15:22)
[2022-01-25] MEDS: THIAMINE HCL 200 MG/2 ML VIAL 100 MG IV PUSH (15:23)
[2022-01-25] MEDS: SPIRONOLACTONE 25 MG TABLET PO (18:48)
[2022-01-25 19:12] LABS: Hematocrit 19.8 % (42.0-52.0); Hemoglobin 6.3 g/dL (14.0-18.0)
[2022-01-25 19:20] LABS: Anion Gap 8 mmol/L (8-16); Blood Urea Nitrogen 21 mg/dL (9-20); Calcium 7.2 mg/dL (8.4-10.2); Carbon Dioxide 27 mmol/L (22-30); Chloride 90 mmol/L (98-107); Estimated CRCL calculation 106 ml/min; Estimated Glomerular Filt Rate > 60; Glucose 123 mg/dL (65-110); Potassium 3.1 mmol/L (3.4-5.0); Sodium 125 mmol/L (137-145)
[2022-01-25] MEDS: cefTRIAXone 2 GM in SODIUM CHLORIDE 0.9% IV 100 ML 200 ML IVPB (21:19)
[2022-01-25] MEDS: ACETAMINOPHEN 325 MG TABLET 650 MG PO (21:19)
[2022-01-25] MEDS: MELATONIN 5 MG TABLET PO (21:54)
[2022-01-26] VITALS (31 sets, daily range): BP systolic 96–124; BP diastolic 53–64; PULSE 80–110; RESP 16–22; TEMP 36.1–37; O2SAT 85–100
--- NOTE | 2022-01-26 | ECHO_ITS ---
Patient Info Name: Gee Buckley Age: 36 years : 1985 Gender: Male Ht: 74 in Wt: 202 lbs BSA: 2.20 m2 HR: 105 bpm BP: 118 / 64 mmHg Heart Rhythm: Tachycardia Technical Quality: Fair Exam Date: 01/26/2022 12:37 PM Exam Location: [facility] Pulmonary Patient Status: Inpatient Admit Date: 01/24/2022 Staff Ordering Physician: Aly Mcgee MD Endoscope Technician: Sumi Burleson RDCS Attending Provider: Faisal Boone MD Referring Physician: Everardo SALINAS; Exam Type: CA echo doppler color flow Study Info Indications - chf Complete two-dimensional, color flow and Doppler transthoracic echocardiogram is performed. Summary 1. Complete two-dimensional, color flow and Doppler transthoracic echocardiogram is performed. 2. Normal leftAnd right ventricularSizeAnd systolic function. 3. Mildly enlarged left atrium. 4. No valvular dysfunction. Left Ventricle Left ventricular chamber dimension is normal. Left ventricular systolic function is hyperdynamic, estimated at >70%. The left ventricular diastolic function is normal. Right Ventricle Right ventricular chamber dimension is normal. Left Atria Left atrial chamber dimension is mildly enlarged. Right Atria Right atrial chamber dimension is normal. Aortic Valve The aortic valve is normal. Pulmonic Valve The pulmonic valve is normal. Mitral Valve The mitral valve has normal leaflets. Tricuspid Valve The tricuspid valve leaflets are normal. Pericardium/Pleural The pericardium appears normal. Aorta The aortic root size at the sinus of Valsalva is normal. Left Ventricular Outflow Tract Name Value Normal LVOT 2D LVOT Diameter 2.0 cm LVOT Doppler LVOT Peak Gradient 6 mmHg LVOT Mean Gradient 3 mmHg LVOT VTI 25 cm LVOT VTI/AV VTI Ratio 0.7 LVOT Stroke Volume 79 ml LVOT CO 15.2 l/min LVOT CI 6.9 l/min/m2 Pulmonic Valve Name Value Normal RVOT Doppler RVOT Peak Gradient 4 mmHg PV Doppler PV Peak Gradient 7 mmHg Mitral Valve Name Value Normal MV Doppler MV Peak Gradient 7 mmHg MV Mean Gradient 4 mmHg MV Decel [place] 1,024 cm/s2 MV PHT 30 ms MV Area (PHT)
[2022-01-26] MEDS: ALBUTEROL SULFATE NEB 2.5 MG/3 ML INH INHALATION ×3 (00:37→15:01)
[2022-01-26] MEDS: IPRATROPIUM BR 0.02% INH SOLN 0.5 MG/2.5 ML VIAL INHALATION ×3 (00:37→15:01)
[2022-01-26] MEDS: FUROSEMIDE INJ 40 MG/4 ML VIAL 10 MG IV PUSH (00:57)
[2022-01-26 03:59] LABS: Basophils Percent Auto 0.3 % (0.2-1.2); Eosinophils Absolute Auto 0.4 K/mm3 (0-0.3); Eosinophils Percent Auto 4.7 % (0-4.4); Hematocrit 21.6 % (42.0-52.0); Immature Granulocyte Absolute 0.03 K/mm3 (0.00-0.031); Immature Granulocyte Percent A 0.4 % (0-0.5); Immature Platelet Fraction Pct 3.8 % (0.9-11.2); Lymphocytes Absolute Auto 1.61 K/mm3 (0.9-3.2); Mean Corpuscular HGB Conc 31.5 g/dl (32-36); Mean Corpuscular Hemoglobin 22.7 pg (26-34); Mean Platelet Volume 9.4 fl (7.4-10.4); Monocytes Absolute Auto 0.7 K/mm3 (0.1-0.6); Monocytes Percent Auto 9.4 % (2.6-8.5); Neutrophils Absolute Auto 4.9 K/mm3 (1.3-6.7); Neutrophils Percent Auto 64.2 % (45.5-73.1); Platelet Count Result 150 k/mm3 (150-375); White Blood Count 7.7 K/mm3 (4.5-10.0)
[2022-01-26 04:08] LABS: Hemoglobin 6.8 g/dL (14.0-18.0)
[2022-01-26 04:13] LABS: Alanine Aminotransferase 22 U/L (6-50); Albumin Level 2.9 g/dL (3.5-5.1); Alkaline Phosphatase 127 U/L (38-126); Anion Gap 9 mmol/L (8-16); Aspartate Amino Transferase 52 U/L (17-59); Blood Urea Nitrogen 19 mg/dL (9-20); Calcium 7.6 mg/dL (8.4-10.2); Carbon Dioxide 26 mmol/L (22-30); Chloride 92 mmol/L (98-107); Estimated CRCL calculation 106 ml/min; Estimated Glomerular Filt Rate > 60; Glucose 94 mg/dL (65-110); Magnesium 2.2 mg/dL (1.6-2.3); Potassium 3.4 mmol/L (3.4-5.0); Sodium 127 mmol/L (137-145)
--- NOTE | 2022-01-26 04:16 | PC.NURSE ---
Addendum entered by Bentley Guzman RN 01/26/22 04:20: Also put 1 unit PRBC on standby Original Note: Spoke with Dr. Mcgee regarding low HGB. No need for blood right now, Order serial H&H q6h.
[2022-01-26 04:21] LABS: Platelet Estimate Adequate (Adequate)
[2022-01-26 04:22] LABS: Hypochromasia 1+ (NORMAL); Target Cells 2+ (NORMAL)
[2022-01-26 04:23] LABS: Ovalocytes 1+ (NORMAL)
[2022-01-26 04:44] LABS: Cortisol Random 9.08 ug/dL
[2022-01-26 06:04] LABS: Hepatitis B Surface Antigen Negative (Negative)
[2022-01-26 06:10] LABS: HAV RESULT Negative (Negative); Hepatitis B Core IgM Result Negative (Negative)
[2022-01-26 06:22] LABS: Hepatitis C Virus Antibody Negative (Negative)
[2022-01-26] MEDS: THIAMINE HCL 200 MG/2 ML VIAL 100 MG IV PUSH (09:29)
[2022-01-26] MEDS: PANTOPRAZOLE SODIUM IV 40 MG VIAL IV PUSH ×2 (09:29→21:19)
[2022-01-26] MEDS: FOLIC ACID 1 MG/0.2 ML INJ IV PUSH (09:30)
--- NOTE | 2022-01-26 09:38 | PM.CNCAR ---
Assessment and Plan Assessment and plan (1) Elevated troponin: Code(s): R77.8 - Other specified abnormalities of plasma proteins Status: Acute (2) Ascites: Code(s): R18.8 - Other ascites Status: Acute (3) Alcohol dependence: Code(s): F10.20 - Alcohol dependence, uncomplicated Status: Acute (4) Tobacco dependence: Code(s): F17.200 - Nicotine dependence, unspecified, uncomplicated Status: Acute (5) GI bleed: Code(s): K92.2 - Gastrointestinal hemorrhage, unspecified Status: Acute (6) Decompensated hepatic cirrhosis: Code(s): K72.90 - Hepatic failure, unspecified without coma; K74.60 - Unspecified cirrhosis of liver Status: Acute Plan Patient's elevated but flat troponins are likely due to his profound anemia that he had on admission. There are no signs/symptoms of acute coronary syndrome. An echocardiogram has been ordered - will follow up on the results. History of Present Illness History of Present Illness Consult date/time: 01/26/22 09:38 Requesting physician: Aly Mcgee MD Consult reason: Other (Elevated troponin) Reason For Visit: hypokalemia, anemia, liver failure Narrative: This is a 36-year-old patient who we are being consulted for elevated troponins. Patient has a history significant of cirrhosis, likely from alchohol use. Patient presented to ER for weakness over the past week, lower extremity edema, and bright red blood per rectum. Patient denies any chest pain. Hgb noted to be 5.8 on admission. Troponins 0.177 --> 0.204 --> 0.192 EKG with sinus rhythm with nonspecific ST-T wave changes. GI was consulted and planning for paracentesis and EGD today. An echo has been ordered and is pending. Review of Systems Review of Systems: All systems reviewed & are unremarkable except as noted in HPI and below (subjective) [facility] Family History Family History Other Patient denies significant medical history Social History Social History Smoking packs per day: 0.4 Smoking cigarettes per day: 8.0 Years smoked: 7 Smoking pack-years: 2.80 Smoking status: Former smoker Tobacco type: cigarettes Second hand tobacco smoke exposure: No Alcohol intake: former Drinks per week: 7 Substance use: never Substance use type: does not use Spiritual care concerns: No Meds Home Medications and Allergies Home Medications Medication Instructions Recorded Confirmed Type buspirone 5 mg tablet 5 mg PO BID 01/24/22 01/24/22 History gabapentin 300 mg capsule 300 mg PO HS 01/24/22 01/24/22 History hydroxyzine HCl 25 mg tablet 25 mg PO HS 01/24/22 01/24/22 History levetiracetam 1,000 mg tablet 1,000 mg PO BID 01/24/22 01/24/22 History omeprazole 40 mg capsule,delayed 40 mg PO DAILY 01/24/22 01/24/22 History release trazodone 50 mg tablet 50 mg PO HS 01/24/22 01/24/22 History Allergies Allergy/AdvReac Type Severity Reaction Status Date / Time No Known Allergies Allergy Verified 01/24/22 22:13 Vital Signs Vital Signs - 24 hr 01/25/22 12:00 01/25/22 10:00 01/25/22 12:00 Temperature 36.5 C Pulse Rate 74 95 94 Respiratory Rate 16 Blood Pressure 150/64 H Pulse Oximetry 97 Oxygen Delivery Oxygen Flow Rate 01/25/22 14:00 01/25/22 16:00 01/25/22 12:00 Temperature Pulse Rate 90 99 Respiratory Rate Blood Pressure Pulse Oximetry Oxygen Delivery Room Air Oxygen Flow Rate 01/25/22 16:00 01/25/22 16:00 01/25/22 18:00 Temperature 36.9 C Pulse Rate 103 H 98 Respiratory Rate 20 Blood Pressure 115/56 L Pulse Oximetry 94 Oxygen Delivery Room Air Oxygen Flow Rate 01/25/22 20:00 01/25/22 21:19 01/25/22 21:38 Temperature 37.7 C H 37.7 C H Pulse Rate 105 H 105 H Respiratory Rate 18 Blood Pressure 121/62 Pulse Oximetry 93 Oxygen Delivery Room Air Oxygen Flow Rate
[2022-01-26 10:22] LABS: Anion Gap 13 mmol/L (8-16); Blood Urea Nitrogen 17 mg/dL (9-20); Calcium 7.7 mg/dL (8.4-10.2); Carbon Dioxide 25 mmol/L (22-30); Chloride 91 mmol/L (98-107); Estimated CRCL calculation 106 ml/min; Estimated Glomerular Filt Rate > 60; Glucose 101 mg/dL (65-110); Potassium 3.4 mmol/L (3.4-5.0); Sodium 129 mmol/L (137-145)
[2022-01-26] MEDS: LACTATED RINGERS 1,000 ML 150 ML IV CONT (10:52)
--- NOTE | 2022-01-26 11:18 | WPDANESEPPF ---
Anes - Initial Pre Proc Eval Procedure: Operation Date: 01/26/22 14:15 Proposed Procedures p Esophagogastroduodenoscopy - Kobe Gibbons MD Date/Time: 01/26/22 11:18 Surgeon: Faisal Boone MD Pre Op Diagnosis: hypokalemia, anemia, liver failure Patient Data Age: 36 Gender: M Height: 1.88 m Weight: 96.7 kg Last Vital Signs Temp 97.6 F 01/26/22 10:47 Pulse 101 H 01/26/22 10:47 Resp 18 01/26/22 10:47 BP 113/53 L 01/26/22 10:47 Pulse Ox 97 01/26/22 10:47 O2 Del Method Room Air 01/26/22 10:47 O2 Flow Rate 2 01/26/22 03:16 Allergies Allergy/AdvReac Type Severity Reaction Status Date / Time No Known Allergies Allergy Verified 01/26/22 10:45 Home Medications Medication Instructions Recorded Confirmed Type buspirone 5 mg tablet 5 mg PO BID 01/24/22 01/24/22 History gabapentin 300 mg capsule 300 mg PO HS 01/24/22 01/24/22 History hydroxyzine HCl 25 mg tablet 25 mg PO HS 01/24/22 01/24/22 History levetiracetam 1,000 mg tablet 1,000 mg PO BID 01/24/22 01/24/22 History omeprazole 40 mg capsule,delayed 40 mg PO DAILY 01/24/22 01/24/22 History release trazodone 50 mg tablet 50 mg PO HS 01/24/22 01/24/22 History Laboratory Tests 01/24/22 01/25/22 01/25/22 18:50 13:15 13:15 WBC RBC Hgb Hct MCV MCH MCHC RDW Plt Count MPV Immature Gran % (Auto) Neut % (Auto) Lymph % (Auto) [place] % (Auto) Eos % (Auto) Baso % (Auto) Lymph # (Auto) [place] # (Auto) Eos # (Auto) Baso # (Auto) Abs Immat Gran (auto) Absolute Neuts (auto) Absolute Nucleated RBC Nucleated RBC % Platelet Estimate % Immature Plt Fraction Hypochromasia Target Cells Ovalocytes Schistocytes Sodium 125 mmol/L L mmol/L (137-145) Potassium 2.9 mmol/L L mmol/L (3.4-5.0) Chloride 91 mmol/L L mmol/L (98-107) Carbon Dioxide 28 mmol/L mmol/L (22-30) Anion Gap 6 mmol/L L mmol/L (8-16) BUN 22 mg/dL H mg/dL (9-20) Creatinine 1.00 mg/dL mg/dL (0.7-1.3) Estim Creat Clear Calc 106 ml/min ml/min Estimated GFR > 60 (59 - ) Glucose 110 mg/dL mg/dL (65-110) Serum Osmolality Calcium 7.0 mg/dL L mg/dL (8.4-10.2) Magnesium Total Bilirubin AST ALT Alkaline Phosphatase Total Protein Albumin Sqoyk-6-Vpcclvlnk Djwcv-5-Gnetzdxfn Zkzo-0-Wsxovsdn Qlmm-8-Ktyzuufa Gamma Globulins Abnorm Protein Band 1 Abnorm Protein Band 3 PEP Interpretation TSH (Reflex) Random Cortisol Ur Random Creatinine Ur Random Chloride U Random Chloride/Creat Peritoneal Source Peritoneal Color Peritoneal Appearance Peritoneal RBC Periton Nuc Cells Peritoneal Tot Protein Peritoneal Albumin Peritoneal LDH Peritoneal Glucose Peritoneal Amylase [place]/Lambda Ratio Free [place] Light Chains Free Lambda Light Chain Hepatitis A IgM Ab Negative (Negative) Hep Bs Antigen Negative (Negative) Hep B Core IgM Ab Negative (Negative) Hepatitis C Ab Screen Negative (Negative) Blood Type A Positive Antibody Screen Negative Crossmatch See Detail 01/25/22 01/25/22 01/25/22 18:50 18:50 20:34 WBC
[2022-01-26 11:21] LABS: Source Peritoneal Fluid Peritoneal Fluid
[2022-01-26 11:22] LABS: Appearance Peritoneal Fluid Clear (Clear); Color Peritoneal Fluid Yellow (Colorless); Lymphocytes Peritoneal Fluid 9 %; Macrophages Peritoneal Fluid 12 %; Mesothelial Cells Peritoneal Fluid 23 %; Monocytes Peritoneal Fluid 49 %; Neutrophils Peritoneal Fluid 7 % (0-25); Nucleated Cells Peritoneal Flu 61 /uL (0-500); RBC Peritoneal Fluid 0 /uL (0-100000)
[2022-01-26 11:52] LABS: Hematocrit 21.6 % (42.0-52.0)
[2022-01-26 11:59] LABS: Anion Gap 12 mmol/L (8-16); Blood Urea Nitrogen 17 mg/dL (9-20); Calcium 7.6 mg/dL (8.4-10.2); Carbon Dioxide 26 mmol/L (22-30); Chloride 91 mmol/L (98-107); Estimated CRCL calculation 106 ml/min; Estimated Glomerular Filt Rate > 60; Glucose 103 mg/dL (65-110); Potassium 3.2 mmol/L (3.4-5.0); Sodium 129 mmol/L (137-145)
[2022-01-26 12:12] LABS: Hemoglobin 6.8 g/dL (14.0-18.0)
--- NOTE | 2022-01-26 12:50 | PM.IMPN ---
Progress Note: A&P Assessment and Plan (1) GI bleed: Code(s): K92.2 - Gastrointestinal hemorrhage, unspecified Status: Acute (2) Decompensated hepatic cirrhosis: Code(s): K72.90 - Hepatic failure, unspecified without coma; K74.60 - Unspecified cirrhosis of liver Status: Acute (3) Hyponatremia: Code(s): E87.1 - Hypo-osmolality and hyponatremia Status: Acute (4) Hypokalemia: Code(s): E87.6 - Hypokalemia Status: Acute (5) Hypomagnesemia: Code(s): E83.42 - Hypomagnesemia Status: Acute (6) Hypochromic microcytic anemia: Code(s): D50.9 - Iron deficiency anemia, unspecified Status: Acute (7) Congestive heart failure: Code(s): I50.9 - Heart failure, unspecified Status: Acute (8) Elevated troponin: Code(s): R77.8 - Other specified abnormalities of plasma proteins Status: Acute (9) Acute renal failure: Code(s): N17.9 - Acute kidney failure, unspecified Status: Acute (10) Tobacco dependence: Code(s): F17.200 - Nicotine dependence, unspecified, uncomplicated Status: Acute (11) Alcohol dependence: Code(s): F10.20 - Alcohol dependence, uncomplicated Status: Acute Plan Generalized weakness Bright red blood per rectum EGD in August 2021 with no varices. GI consulted. Started on octreotide drip however was discontinued by GI. remains on Protonix IV b.i.d. H&H still low. Transfuse p.r.n. to keep hemoglobin than 7 Acute on chronic blood loss anemia baseline hemoglobin August 2021 was 8. Admission hemoglobin 5.8. EGD in September 05 negative but anal fissure on colonoscopy. Going for EGD this afternoon History of alcohol abuse could it several months ago last drink 2 weeks ago Cirrhosis of liver diagnosed July 2021 Ascites. Small left pleural effusion signs of portal hypertension albumin infusion the water restriction diuresis started status post paracentesis 01/26/2022 with removal of 2.5 L. ascitic fluid analysis to follow Severe hypokalemia: Replace recheck and monitor. Improving. Reorder 40 p.o. potassium today Acute kidney injury creatinine 1.7. Renal ultrasound negative for hydronephrosis. renal failure has resolved now. Renal is following. Hyperbilirubinemia due to underlying cirrhosis abnormal CT with possible lesions.alpha fetoprotein Pending Hyperammonemia lactulose added Coagulopathy. INR 2 likely due to underlying cirrhosis of liver Elevated troponin serial flat likely related to all the other medical issues. Echo pending result. Cardiology consulted. Hypo magnesium replacing monitor. Magnesium 2.2 today Tobacco dependence DVT prophylaxis SCDs Code status full code Subjective Date/time seen: 01/26/22 12:50 Interval history: This is a 36-year-old male with past medical history significant for hepatic cirrhosis, patient used to drink a 6 pack of beer and a fire ball daily, states that he has been sober since July however had a drink 2 weeks ago,? smokes cigarettes sporadically, patient has been very weak, has noticed bright red blood per rectum for the last week or so, denies melena, hematemesis, denies nausea, denies vomiting, denies fevers rigors chills cough sputum production notice increased abdominal girth and worsening bilateral lower extremity edema and yellow discoloration of the skin. Patient has had poor appetite and poor oral intake as well denies abdominal pain.? Preliminary workup was significant for chemistry panel sodium 123, chloride 80, potassium? less than 2, BUN 23 creatinine 1.7, total bilirubin 7.8,? brain natriuretic peptide 2120,? troponins x3 0.177/ 0.204/ 0.192, magnesium 1.1,? CT of abdomen and pelvis was reported as: IMPRESSION: Small left pleural effusion. Cirrhosis, with portal hypertension. Possible liver lesions, consider nonemergent, outpatient MR of the liver for further evaluation. Moderate ascites. Mild body wall edema. Presumed old mild compression def
[2022-01-26 13:11] LABS: Anion Gap 9 mmol/L (8-16); Blood Urea Nitrogen 18 mg/dL (9-20); Calcium 7.7 mg/dL (8.4-10.2); Carbon Dioxide 25 mmol/L (22-30); Chloride 93 mmol/L (98-107); Estimated CRCL calculation 106 ml/min; Estimated Glomerular Filt Rate > 60; Glucose 98 mg/dL (65-110); Potassium 3.5 mmol/L (3.4-5.0); Sodium 127 mmol/L (137-145)
--- NOTE | 2022-01-26 13:16 | PCPTNOTE ---
Attempted PT evaluation, Pt refused stating I can't do any of that right now. RN aware. Will follow.
--- NOTE | 2022-01-26 13:23 | PCOTNOTE ---
Attempted occupational evaluation. Pt. declines to work with therapy at this time. Nursing aware.
--- NOTE | 2022-01-26 13:34 | PM.PNNEP ---
Progress Note: A&P Assessment and Plan (1) Acute renal failure: Code(s): N17.9 - Acute kidney failure, unspecified Status: Acute Assessment and Plan: resolved suspect volume depletion due to poor oral intake despite outward signs of edema, probably had a component intravascular volume depletion renal ultrasound normal follow I/Os trend labs (2) Hyponatremia: Code(s): E87.1 - Hypo-osmolality and hyponatremia Status: Acute Assessment and Plan: slow improvement noted several possible etiologies: volume depletion medications [omeprazole (PPI) or buspirone] liver disease (prone to causing pre-renal azotemia) continue free water restriction would try to avoid salt tabs urine electrolytes pending follow-up on TSH, cortisol, SPEP, UPEP, and urine/serum osmolality follow trend of repeat sodium levels (3) Hypokalemia: Code(s): E87.6 - Hypokalemia Status: Acute Assessment and Plan: suspect total body store depleted state hypomagnesemia possibly playing a role aggressive replacement PRN (4) Anemia: Code(s): D64.9 - Anemia, unspecified Status: Acute Assessment and Plan: suspected GI bleed EGD negative GI following follow trend of H/H (5) Cirrhosis: Code(s): K74.60 - Unspecified cirrhosis of liver Status: Acute Assessment and Plan: alcoholic cirrhosis of liver by history and imaging GI recommendations noted s/p paracentesis (on 01/26/22) Will continue to follow. Subjective Date/time seen: 01/26/22 13:34 S/P paracentesis (with 2.5L fluid removal) and EGD earlier today with 2.5L fluid removal and no significant findings with regard to ulcers or varices; PRBC transfusion yesterday due to dropping H/H; sodium slowly improving as well; no apparent distress noted. Exam Narrative: General: ill appearing male in NAD Heart: normal S1 and S2; no rub Lungs: clear to auscultation Abdomen: soft, nontender, nondistended, positive bowel sounds Extremities: no cyanosis or clubbing; trace edema Skin: warm and dry; jaundiced Objective Data Vital Signs Vital Signs: Vital Signs Temp Pulse Resp BP Pulse Ox O2 Del Method O2 Flow Rate 01/26/22 11:52 101 H 16 103/57 L 96 Room Air 01/26/22 11:42 102 H 17 96/56 L 96 Room Air 01/26/22 11:32 105 H 19 102/59 L 99 Room Air 01/26/22 10:47 36.4 C 101 H 18 113/53 L 97 Room Air 01/26/22 09:57 36.6 C 103 H 18 116/57 L 94 01/26/22 06:00 105 H 01/26/22 05:56 100 20 01/26/22 05:45 103 H 20 01/26/22 04:00 104 H 01/26/22 03:38 37.0 C 103 H 17 118/64 95 01/26/22 03:16 93 20 94 Nasal Cannula 2 01/26/22 00:50 80 20 01/26/22 00:50 80 20 85 L Nasal Cannula 2 01/26/22 00:37 84 22 H 01/26/22 02:00 98 01/26/22 00:35 36.6 C 104 H 19 115/54 L 99 01/26/22 00:00 110 H 01/26/22 00:24 105 H 19 96 Nasal Cannula 2 01/25/22 23:35 36.8 C 103 H 18 114/58 L 99 01/25/22 23:45 103 H 18 Room Air 01/25/22 23:24 36.7 C 100 18 107/49 L 96 01/25/22 22:00 103 H 01/25/22 20:00 105 H 01/25/22 22:35 36.7 C 99 15 102/44 L 01/25/22 22:19 36.8 C 99 17 105/42 L 98 01/25/22 21:38 105 H Room Air 01/25/22 21:19 37.7 C H 01/25/22 20:00 37.7 C H 105 H 18 121/62 93 01/25/22 18:00 98 Intake/Output Intake/Output: Intake & Output 01/23/22 01/24/22 01/25/22 01/26/22 23:59 23:59 23:59 23:59 Intake Total 720 2180 450 Output Total 1100 2920 Balance 720 1080 2470 Meds/Results Medications: Active Medications Generic Name Dose Route Start Last Admin Trade Name Freq PRN Reason Stop Dose Admin Albuterol 2.5 mg 01/26/22 00:12 01/26/22 15:01 Albuterol Sulfate Neb 2.5 Mg/3 Ml Inh INHALATION 2.5 mg Q4HRT PRN Administration Leannene
--- NOTE | 2022-01-26 13:34 | P.PNNP_ITS ---
Progress Note: A&P Assessment and Plan (1) Acute renal failure: Code(s): N17.9 - Acute kidney failure, unspecified Status: Acute Assessment and Plan: * resolved * suspect volume depletion due to poor oral intake * despite outward signs of edema, probably had a component intravascular volume depletion * renal ultrasound normal * follow I/Os * trend labs (2) Hyponatremia: Code(s): E87.1 - Hypo-osmolality and hyponatremia Status: Acute Assessment and Plan: * slow improvement noted * several possible etiologies: * volume depletion * medications [omeprazole (PPI) or buspirone] * liver disease (prone to causing pre-renal azotemia) * continue free water restriction * would try to avoid salt tabs * urine electrolytes pending * follow-up on TSH, cortisol, SPEP, UPEP, and urine/serum osmolality * follow trend of repeat sodium levels (3) Hypokalemia: Code(s): E87.6 - Hypokalemia Status: Acute Assessment and Plan: * suspect total body store depleted state * hypomagnesemia possibly playing a role * aggressive replacement PRN (4) Anemia: Code(s): D64.9 - Anemia, unspecified Status: Acute Assessment and Plan: * suspected GI bleed * EGD negative * GI following * follow trend of H/H (5) Cirrhosis: Code(s): K74.60 - Unspecified cirrhosis of liver Status: Acute Assessment and Plan: * alcoholic cirrhosis of liver by history and imaging * GI recommendations noted * s/p paracentesis (on 01/26/22) Will continue to follow. Subjective Date/time seen: 01/26/22 13:34 S/P paracentesis (with 2.5L fluid removal) and EGD earlier today with 2.5L fluid removal and no significant findings with regard to ulcers or varices; PRBC transfusion yesterday due to dropping H/H; sodium slowly improving as well; no apparent distress noted. Exam Narrative: General: ill appearing male in NAD Heart: normal S1 and S2; no rub Lungs: clear to auscultation Abdomen: soft, nontender, nondistended, positive bowel sounds Extremities: no cyanosis or clubbing; trace edema Skin: warm and dry; jaundiced Objective Data Vital Signs Vital Signs: Vital Signs Temp Pulse Resp BP Pulse Ox O2 Del Method O2 Flow Rate 01/26/22 11:52 101 H 16 103/57 L 96 Room Air 01/26/22 11:42 102 H 17 96/56 L 96 Room Air 01/26/22 11:32 105 H 19 102/59 L 99 Room Air 01/26/22 10:47 36.4 C 101 H 18 113/53 L 97 Room Air 01/26/22 09:57 36.6 C 103 H 18 116/57 L 94 01/26/22 06:00 105 H 01/26/22 05:56 100 20 01/26/22 05:45 103 H 20 01/26/22 04:00 104 H 01/26/22 03:38 37.0 C 103 H 17 118/64 95 01/26/22 03:16 93 20 94 Nasal Cannula 2 01/26/22 00:50 80 20 01/26/22 00:50 80 20 85 L Nasal Cannula 2 01/26/22 00:37 84 22 H 01/26/22 02:00 98 01/26/22 00:35 36.6 C 104 H 19 115/54 L 99 01/26/22 00:00 110 H 01/26/22 00:24 105 H 19 96 Nasal Cannula 2 01/25/22 23:35 36.8 C 103 H 18 114/58 L 99 01/25/22 23:45 103 H 18 Room Air 01/25/22 23:24 36.7 C 100 18 107/49 L 96 01/25/22 22:00 103 H 01/25/22 20:00 105 H
[2022-01-26] MEDS: LACTULOSE 20 GM/30 ML UDC PO (14:39)
[2022-01-26] MEDS: busPIRone HCL 5 MG TABLET PO ×2 (14:39→21:19)
[2022-01-26] MEDS: PEG (High)/E-LYTE SOLN 4,000 ML BTL 4000 ML PO (14:40)
[2022-01-26] MEDS: levETIRAcetam 500 MG TABLET 1000 MG PO ×2 (14:40→21:19)
[2022-01-26] MEDS: POTASSIUM CHLORIDE 20 MEQ TABLET 40 MEQ PO (14:40)
[2022-01-26] MEDS: ALBUMIN HUMAN 25% 25 GM/100 ML 200 ML IVPB ×2 (14:41→22:26)
[2022-01-26] MEDS: SODIUM CHLORIDE 0.9% IV 250 ML 30 ML IV CONT (15:57)
[2022-01-26] MEDS: SPIRONOLACTONE 50 MG TABLET PO (17:37)
[2022-01-26] MEDS: FUROSEMIDE INJ 40 MG/4 ML VIAL 20 MG IV PUSH (18:45)
[2022-01-26 19:56] LABS: Hematocrit 23.7 % (42.0-52.0); Hemoglobin 7.4 g/dL (14.0-18.0)
[2022-01-26] MEDS: GABAPENTIN 300 MG CAPSULE PO (21:19)
[2022-01-26] MEDS: hydrOXYzine HCL 25 MG TABLET PO (21:19)
[2022-01-26] MEDS: CENTRAL LINE FLUSH 10 ML IV PUSH (21:20)
[2022-01-26] MEDS: ALPRAZolam (*CRX) 0.25 MG TABLET PO (21:20)
[2022-01-26] MEDS: traZODone HCL 50 MG TABLET PO (21:20)
[2022-01-26] MEDS: cefTRIAXone 2 GM in SODIUM CHLORIDE 0.9% IV 100 ML 200 ML IVPB (21:23)
[2022-01-27] VITALS (24 sets, daily range): BP systolic 105–127; BP diastolic 50–81; PULSE 101–121; RESP 12–34; TEMP 36.2–36.9; O2SAT 91–96
[2022-01-27] MEDS: CENTRAL LINE FLUSH 10 ML IV PUSH ×3 (05:25→21:01)
[2022-01-27 05:31] LABS: Basophils Percent Auto 0.4 % (0.2-1.2); Eosinophils Absolute Auto 0.4 K/mm3 (0-0.3); Eosinophils Percent Auto 4.9 % (0-4.4); Hematocrit 21.4 % (42.0-52.0); Immature Granulocyte Absolute 0.04 K/mm3 (0.00-0.031); Immature Granulocyte Percent A 0.5 % (0-0.5); Lymphocytes Absolute Auto 1.79 K/mm3 (0.9-3.2); Lymphocytes Percent Auto 22.1 % (18.3-44.2); Mean Corpuscular HGB Conc 31.3 g/dl (32-36); Mean Corpuscular Hemoglobin 22.9 pg (26-34); Mean Corpuscular Volume 73.3 fl (80-100); Mean Platelet Volume 9.3 fl (7.4-10.4); Monocytes Absolute Auto 0.8 K/mm3 (0.1-0.6); Monocytes Percent Auto 9.6 % (2.6-8.5); Neutrophils Absolute Auto 5.1 K/mm3 (1.3-6.7); Neutrophils Percent Auto 62.5 % (45.5-73.1); Platelet Count Result 121 k/mm3 (150-375); Red Blood Count 2.92 M/mm3 (4.6-6.20); Red Cell Distribution Width 29.4 % (11.5-14.5); White Blood Count 8.1 K/mm3 (4.5-10.0)
[2022-01-27] MEDS: ALBUMIN HUMAN 25% 25 GM/100 ML 200 ML IVPB ×3 (05:32→21:00)
[2022-01-27 05:39] LABS: Alanine Aminotransferase 19 U/L (6-50); Albumin Level 3.2 g/dL (3.5-5.1); Alkaline Phosphatase 98 U/L (38-126); Anion Gap 8 mmol/L (8-16); Aspartate Amino Transferase 43 U/L (17-59); Bilirubin,Total 10.6 mg/dL (0.2-1.3); Blood Urea Nitrogen 15 mg/dL (9-20); Calcium 8.3 mg/dL (8.4-10.2); Carbon Dioxide 28 mmol/L (22-30); Chloride 95 mmol/L (98-107); Estimated CRCL calculation 130 ml/min; Estimated Glomerular Filt Rate > 60; Glucose 91 mg/dL (65-110); Potassium 3.2 mmol/L (3.4-5.0); Sodium 131 mmol/L (137-145)
[2022-01-27 05:40] LABS: Hemoglobin 6.7 g/dL (14.0-18.0)
[2022-01-27 06:25] LABS: Ovalocytes 1+ (NORMAL); Platelet Estimate Adequate (Adequate)
[2022-01-27 06:26] LABS: Crenated RBC 1+ (NORMAL); Target Cells 2+ (NORMAL)
[2022-01-27 06:27] LABS: Hypochromasia 3+ (NORMAL)
[2022-01-27 06:28] LABS: Anisocytosis 2+ (NORMAL); Schistocytes 1+ (NORMAL)
[2022-01-27] MEDS: busPIRone HCL 5 MG TABLET PO ×2 (08:21→20:20)
[2022-01-27] MEDS: levETIRAcetam 500 MG TABLET 1000 MG PO ×2 (08:21→20:17)
[2022-01-27] MEDS: THIAMINE HCL 200 MG/2 ML VIAL 100 MG IV PUSH (08:22)
[2022-01-27] MEDS: SPIRONOLACTONE 50 MG TABLET PO ×2 (08:22→18:25)
[2022-01-27] MEDS: PANTOPRAZOLE SODIUM IV 40 MG VIAL IV PUSH ×2 (08:23→20:17)
[2022-01-27] MEDS: FOLIC ACID 1 MG/0.2 ML INJ IV PUSH (08:26)
[2022-01-27] MEDS: ALBUTEROL SULFATE NEB 2.5 MG/3 ML INH INHALATION (09:38)
[2022-01-27] MEDS: IPRATROPIUM BR 0.02% INH SOLN 0.5 MG/2.5 ML VIAL INHALATION (09:38)
--- NOTE | 2022-01-27 10:02 | P.PNNP_ITS ---
Progress Note: A&P Assessment and Plan (1) Acute renal failure: Code(s): N17.9 - Acute kidney failure, unspecified Status: Acute Assessment and Plan: * resolved * suspect volume depletion due to poor oral intake * despite outward signs of edema, probably had a component intravascular volume depletion on admission * renal ultrasound normal * follow I/Os * trend labs (2) Hyponatremia: Code(s): E87.1 - Hypo-osmolality and hyponatremia Status: Acute Assessment and Plan: * slow improvement noted * several possible etiologies: * volume depletion * medications [omeprazole (PPI) or buspirone] * liver disease (prone to causing pre-renal azotemia) * continue free water restriction * would try to avoid salt tabs * evaluation to date: * TSH okay and cortisol a tad low -- consider cosyntropin stimulation test * urine electrolytes pending * SPEP, UPEP and urine/serum osmolality * follow trend of repeat sodium levels (3) Hypokalemia: Code(s): E87.6 - Hypokalemia Status: Acute Assessment and Plan: * suspect total body store depleted state * hypomagnesemia possibly playing a role * aggressive replacement PRN * use of spironolactone should help (4) Anemia: Code(s): D64.9 - Anemia, unspecified Status: Acute Assessment and Plan: * suspected GI bleed * EGD negative; plan colonosocopy today * GI following * PRBC per protocol * follow trend of H/H (5) Cirrhosis: Code(s): K74.60 - Unspecified cirrhosis of liver Status: Chronic Assessment and Plan: * alcoholic cirrhosis of liver by history and imaging * GI recommendations noted * s/p paracentesis (on 01/26/22) Will continue to follow. Subjective Date/time seen: 01/27/22 10:02 Sodium continues to improve with ongoing/current interventions to date; s/p EGD yesterday with no significant findings; s/p paracentesis yesterday as well and tolerated this procedure; bowel prep last night with noted plans for colonoscopy today; low H/H noted again by AM labs so getting PRBC transfusion currently. Exam Narrative: General: ill appearing male in NAD Heart: normal S1 and S2; no rub Lungs: clear to auscultation Abdomen: soft, nontender, nondistended, positive bowel sounds Extremities: no cyanosis or clubbing; trace edema Skin: warm and dry; jaundiced Objective Data Vital Signs Vital Signs: Vital Signs Temp Pulse Resp BP Pulse Ox O2 Del Method 01/27/22 08:00 Room Air 01/27/22 09:47 111 H 18 01/27/22 09:41 108 H 18 92 Room Air 01/27/22 09:38 108 H 18 01/27/22 08:00 36.3 C L 116 H 12 114/60 94 01/27/22 06:00 108 H 01/27/22 04:00 112 H 18 94 Room Air 01/27/22 04:00 105 H 01/27/22 04:00 36.6 C 112 H 18 119/58 L 94 01/27/22 02:00 101 H 01/27/22 00:00 107 H 18 94 Room Air 01/27/22 00:00 102 H 01/27/22 00:00 36.6 C 107 H 18 119/65 94 01/26/22 22:00 110 H 01/26/22 20:00 100 18 94 Room Air 01/26/22 20:00 105 H 01/26/22 20:00 36.6 C 100 18 116/62 94 01/26/22 18:55 36.7 C 106 H 20 120/59 L 98 01/26/22 16:25 36.1 C L 104 H 18 124/60 97 01/26/22 16:00 Ro
--- NOTE | 2022-01-27 10:02 | PM.PNNEP ---
Progress Note: A&P Assessment and Plan (1) Acute renal failure: Code(s): N17.9 - Acute kidney failure, unspecified Status: Acute Assessment and Plan: resolved suspect volume depletion due to poor oral intake despite outward signs of edema, probably had a component intravascular volume depletion on admission renal ultrasound normal follow I/Os trend labs (2) Hyponatremia: Code(s): E87.1 - Hypo-osmolality and hyponatremia Status: Acute Assessment and Plan: slow improvement noted several possible etiologies: volume depletion medications [omeprazole (PPI) or buspirone] liver disease (prone to causing pre-renal azotemia) continue free water restriction would try to avoid salt tabs evaluation to date: TSH okay and cortisol a tad low -- consider cosyntropin stimulation test urine electrolytes pending SPEP, UPEP and urine/serum osmolality follow trend of repeat sodium levels (3) Hypokalemia: Code(s): E87.6 - Hypokalemia Status: Acute Assessment and Plan: suspect total body store depleted state hypomagnesemia possibly playing a role aggressive replacement PRN use of spironolactone should help (4) Anemia: Code(s): D64.9 - Anemia, unspecified Status: Acute Assessment and Plan: suspected GI bleed EGD negative; plan colonosocopy today GI following PRBC per protocol follow trend of H/H (5) Cirrhosis: Code(s): K74.60 - Unspecified cirrhosis of liver Status: Chronic Assessment and Plan: alcoholic cirrhosis of liver by history and imaging GI recommendations noted s/p paracentesis (on 01/26/22) Will continue to follow. Subjective Date/time seen: 01/27/22 10:02 Sodium continues to improve with ongoing/current interventions to date; s/p EGD yesterday with no significant findings; s/p paracentesis yesterday as well and tolerated this procedure; bowel prep last night with noted plans for colonoscopy today; low H/H noted again by AM labs so getting PRBC transfusion currently. Exam Narrative: General: ill appearing male in NAD Heart: normal S1 and S2; no rub Lungs: clear to auscultation Abdomen: soft, nontender, nondistended, positive bowel sounds Extremities: no cyanosis or clubbing; trace edema Skin: warm and dry; jaundiced Objective Data Vital Signs Vital Signs: Vital Signs Temp Pulse Resp BP Pulse Ox O2 Del Method 01/27/22 08:00 Room Air 01/27/22 09:47 111 H 18 01/27/22 09:41 108 H 18 92 Room Air 01/27/22 09:38 108 H 18 01/27/22 08:00 36.3 C L 116 H 12 114/60 94 01/27/22 06:00 108 H 01/27/22 04:00 112 H 18 94 Room Air 01/27/22 04:00 105 H 01/27/22 04:00 36.6 C 112 H 18 119/58 L 94 01/27/22 02:00 101 H 01/27/22 00:00 107 H 18 94 Room Air 01/27/22 00:00 102 H 01/27/22 00:00 36.6 C 107 H 18 119/65 94 01/26/22 22:00 110 H 01/26/22 20:00 100 18 94 Room Air 01/26/22 20:00 105 H 01/26/22 20:00 36.6 C 100 18 116/62 94 01/26/22 18:55 36.7 C 106 H 20 120/59 L 98 01/26/22 16:25 36.1 C L 104 H 18 124/60 97 01/26/22 16:00 Room Air 01/26/22 18:00 101 H 01/26/22 16:00 110 H 01/26/22 14:00 108 H 01/26/22 12:00 103 H 01/26/22 12:00 Room Air 01/26/22 16:00 36.7 C 108 H 18 123/57 L 96 01/26/22 16:00 36.7 C 108 H 18 123/57 L 96 01/26/22 15:25 36.8 C 105 H 22 H 124/58 L 100 01/26/22 15:09 90 18 01/26/22 15:01 100 18 01/26/22 15:08 36.6 C 104 H 22 H 113/63 100 01/26/22 14:23 Room Air 01/26/22 11:52 101 H 16 103/57 L 96 Room Air 01/26/22 11:42 102 H 17 96/56 L 96 Room Air 01/26/22 11:32 105 H 19 102/59 L 99 Room Air 01/26/22 10:47 36.4 C 101 H 18 113/53 L 97 Room Air Intake/Output Intake/Output: Intake & Output
[2022-01-27] MEDS: SODIUM CHLORIDE 0.9% IV 250 ML 30 ML IV CONT ×2 (11:30→16:41)
[2022-01-27] MEDS: LACTATED RINGERS 1,000 ML 150 ML IV CONT (13:02)
--- NOTE | 2022-01-27 13:23 | WPDANESEPPF ---
Anes - Initial Pre Proc Eval Procedure: Operation Date: 01/26/22 14:15 Proposed Procedures p Esophagogastroduodenoscopy - Kobe Gibbons MD Operation Date: 01/27/22 13:30 Proposed Procedures p Colonoscopy - Kobe Gibbons MD Date/Time: 01/27/22 13:23 Surgeon: Faisal Boone MD Pre Op Diagnosis: hypokalemia, anemia, liver failure Patient Data Age: 36 Gender: M Height: 1.88 m Weight: 96.3 kg Last Vital Signs Temp 97.8 F 01/27/22 12:30 Pulse 105 H 01/27/22 12:30 Resp 16 01/27/22 12:30 BP 117/58 L 01/27/22 12:30 Pulse Ox 94 01/27/22 12:30 O2 Del Method Room Air 01/27/22 12:30 O2 Flow Rate 2 01/26/22 03:16 Allergies Allergy/AdvReac Type Severity Reaction Status Date / Time No Known Allergies Allergy Verified 01/27/22 12:48 Home Medications Medication Instructions Recorded Confirmed Type buspirone 5 mg tablet 5 mg PO BID 01/24/22 01/27/22 History gabapentin 300 mg capsule 300 mg PO HS 01/24/22 01/27/22 History hydroxyzine HCl 25 mg tablet 25 mg PO HS 01/24/22 01/27/22 History levetiracetam 1,000 mg tablet 1,000 mg PO BID 01/24/22 01/27/22 History omeprazole 40 mg capsule,delayed 40 mg PO DAILY 01/24/22 01/27/22 History release trazodone 50 mg tablet 50 mg PO HS 01/24/22 01/27/22 History Laboratory Tests 01/24/22 01/26/22 01/26/22 18:50 19:44 23:16 WBC RBC Hgb 7.4 g/dL L g/dL (14.0-18.0) Hct 23.7 % L % (42.0-52.0) MCV MCH MCHC RDW Plt Count MPV Immature Gran % (Auto) Neut % (Auto) Lymph % (Auto) [place] % (Auto) Eos % (Auto) Baso % (Auto) Lymph # (Auto) [place] # (Auto) Eos # (Auto) Baso # (Auto) Abs Immat Gran (auto) Absolute Neuts (auto) Absolute Nucleated RBC Nucleated RBC % Platelet Estimate Hypochromasia Anisocytosis Target Cells Ovalocytes Crenated Cell Schistocytes Sodium Potassium Chloride Carbon Dioxide Anion Gap BUN Creatinine Estim Creat Clear Calc Estimated GFR Glucose Calcium Magnesium Total Bilirubin AST ALT Alkaline Phosphatase Total Protein Albumin Urine Osmolality Pending Ur Random Creatinine Pending U Random Total Protein Pending Ur Random Sodium Ur Random Potassium Urine Creatinine Protein/Creatinin Ratio Pending Protein/Creat Ratio 2 Urine Albumin Pending U [id number] Pending U [id number] Pending U Beta Globulin Pending U Gamma Globulin Pending U Abnormal Prot Band 1 Pending U Abnormal Prot Band 2 Pending U Abnormal Prot Band 3 Pending Urine PEP Interpret Pending Blood Type A Positive Antibody Screen Negative Crossmatch See Detail 01/26/22 01/27/22 01/27/22 23:16 05:20 05:20 WBC 8.1 K/mm3 K/mm3 (4.5-10.0) RBC 2.92 M/mm3 L M/mm3 (4.6-6.20) Hgb 6.7 g/dL L* g/dL (14.0-18.0) Hct 21.4 % L % (42.0-52.0) MCV 73.3 fl L fl (80-100) MCH 22.9 pg L pg (26-34) MCHC 31.3 g/dl L g/dl (32-36) RDW 29.4 % H % (11.5-14.5) Plt Count 121 k/mm3 L k/mm3 (150-375) MPV 9.3 fl fl (7.4-10.4) Immature Gran % (Auto) 0.5 % % (0-0.5) Neut % (Auto) 62.5 % % (45.5-73.1) Lymph % (A
--- NOTE | 2022-01-27 15:22 | PM.IMPN ---
Progress Note: A&P Assessment and Plan (1) GI bleed: Code(s): K92.2 - Gastrointestinal hemorrhage, unspecified Status: Acute (2) Decompensated hepatic cirrhosis: Code(s): K72.90 - Hepatic failure, unspecified without coma; K74.60 - Unspecified cirrhosis of liver Status: Acute (3) Hyponatremia: Code(s): E87.1 - Hypo-osmolality and hyponatremia Status: Acute (4) Hypokalemia: Code(s): E87.6 - Hypokalemia Status: Acute (5) Hypomagnesemia: Code(s): E83.42 - Hypomagnesemia Status: Acute (6) Hypochromic microcytic anemia: Code(s): D50.9 - Iron deficiency anemia, unspecified Status: Acute (7) Congestive heart failure: Code(s): I50.9 - Heart failure, unspecified Status: Acute (8) Elevated troponin: Code(s): R77.8 - Other specified abnormalities of plasma proteins Status: Acute (9) Acute renal failure: Code(s): N17.9 - Acute kidney failure, unspecified Status: Acute (10) Tobacco dependence: Code(s): F17.200 - Nicotine dependence, unspecified, uncomplicated Status: Acute (11) Alcohol dependence: Code(s): F10.20 - Alcohol dependence, uncomplicated Status: Acute Plan #Generalized weakness #Bright red blood per rectum EGD in August 2021 with no varices. GI consulted. Started on octreotide drip however was discontinued by GI. remains on Protonix IV b.i.d. H&H still low. Transfuse p.r.n. to keep hemoglobin than 7. Transfuse 1 unit today #Acute on chronic blood loss anemia baseline hemoglobin August 2021 was 8. Admission hemoglobin 5.8. EGD in September 05 negative but anal fissure on colonoscopy. status post EGD 01/26/2022: Normal EGD Colonoscopy 01/27/2022 with internal hemorrhoids and external hemorrhoids. Bleeding appears to be from hemorrhoids. # internal and external hemorrhoids likely cause of anemia. Will consult General surgery if not already done by GI. These are likely related to portal hypertension with underlying cirrhosis of liver. #History of alcohol abuse so over several months ago but drank shot 2 weeks ago #Cirrhosis of liver diagnosed July 2021 #Ascites. Small left pleural effusion signs of portal hypertension albumin infusion the water restriction diuresis started status post paracentesis 01/26/2022 with removal of 2.5 L. ascitic fluid analysis to follow but no signs of infection #Severe hypokalemia: Replace recheck and monitor. Improving. Reorder 40 p.o. potassium today #Acute kidney injury creatinine 1.7. Renal ultrasound negative for hydronephrosis. renal failure has resolved now. Renal is following. #Hyperbilirubinemia due to underlying cirrhosis #abnormal CT with possible lesions.alpha fetoprotein Pending #Hyperammonemia lactulose added #Coagulopathy. INR 2 likely due to underlying cirrhosis of liver #Elevated troponin serial flat likely related to all the other medical issues. Echo 01/26/2022: Normal. Cardiology consulted. #Hypo magnesium replacing monitor. Magnesium 2.2 today #Tobacco dependence #DVT prophylaxis SCDs #Code status full code Subjective Date/time seen: 01/27/22 15:22 Interval history: This is a 36-year-old male with past medical history significant for hepatic cirrhosis, patient used to drink a 6 pack of beer and a fire ball daily, states that he has been sober since July however had a drink 2 weeks ago,? smokes cigarettes sporadically, patient has been very weak, has noticed bright red blood per rectum for the last week or so, denies melena, hematemesis, denies nausea, denies vomiting, denies fevers rigors chills cough sputum production notice increased abdominal girth and worsening bilateral lower extremity edema and yellow discoloration of the skin. Patient has had poor appetite and poor oral intake as well denies abdominal pain.? Preliminary workup was significant for chemistry panel sodium 123, chloride 80, potassium? le
--- NOTE | 2022-01-27 15:31 | PM.CNGS ---
Assessment and Plan Assessment and plan (1) Bleeding hemorrhoids: Code(s): K64.9 - Unspecified hemorrhoids Status: Acute Assessment and Plan: Colonoscopy revealed stigmata of bleeding from external hemorrhoids and also some internal hemorrhoids without any evidence of bleeding. This is the reasons for our consultation. He is having a lot of rectal pain from the hemorrhoids. There are two large swollen hemorrhoids and two thrombosed hemorrhoids on exam. No active bleeding noted at this time. Unable to do a digital rectal exam due to the pain and discomfort. The left posterior and left anterior thrombosed hemorrhoids appear to have an opening where a clot possibly has already drained. He has been using an OTC cream from home with lidocaine and phenylephrine. Instructed the nurse to alternate the hydrocortisone with the OTC ointment. Will call pharmacy to see if they can switch to a hydrocortisone cream. Also recommended sitz baths. We will also start him on a laxative to keep his stool soft and bowels moving. Without any active bleeding, we would recommend to continue treating him conservatively. If he develops more bleeding with the anemia, then we could consider surgical intervention. He is a poor surgical candidate given his advanced liver cirrhosis. We will recheck his clotting factors tomorrow to reassess, as these have not been checked since 01/24. Thank you for allowing us to see the patient in consultation and we will continue to follow along with you. (2) GI bleed: Code(s): K92.2 - Gastrointestinal hemorrhage, unspecified Status: Acute Assessment and Plan: S/p colonoscopy and EGD. EGD negative. Colonoscopy only with findings of internal and external hemorrhoids with stigmata of bleeding on the external hemorrhoids. See plan above. (3) Anemia: Code(s): D64.9 - Anemia, unspecified Status: Acute Assessment and Plan: Hgb 5.8 on admission. He has received 4 units PRBCs and has another 2 units ordered today with a hgb 6.7. He complains that he was having nearly constant blood per rectum when getting his bowel prep yesterday and he is actually wearing a depends because of the bleeding. On exam, there is no active bleeding and no bloody drainage on the depends. Continue to monitor labs, transfuse as needed. Will repeat coags as well tomorrow and could consider FFP if this remains high and he continues to bleed. (4) Cirrhosis: Code(s): K74.60 - Unspecified cirrhosis of liver Status: Chronic Assessment and Plan: Advanced alcoholic liver cirrhosis with evidence of cirrhosis and portal hypertension on imaging. He has ascites and underwent a paracentesis yesterday yielding over 2 liters of fluid. Coags elevated. Will repeat PT/PTT and INR. (5) Ascites: Code(s): R18.8 - Other ascites Status: Acute Assessment and Plan: S/p paracentesis yesterday with over 2 liters of fluid removed. Ascites fluid studies pending. (6) Alcohol dependence: Code(s): F10.20 - Alcohol dependence, uncomplicated Status: Acute Assessment and Plan: Encouraged strict alcohol avoidance for this patient moving forward. (7) Acute renal failure: Code(s): N17.9 - Acute kidney failure, unspecified Status: Acute Assessment and Plan: Creatinine 1.7 on admission, Nephrology following, improved with creatinine now 0.8. Superior this is likely related to volume depletion. (8) Tobacco dependence: Code(s): F17.200 - Nicotine dependence, unspecified, uncomplicated Status: Acute (9) Hyponatremia: Code(s): E87.1 - Hypo-osmolality and hyponatremia Status: Acute Assessment and Plan: Na 123 on admission and is slowly improving. Nephrology following. He is on a fluid restriction. Sodium now up to 131 today. (10) Hypokalemia: Code(s): E87.6 - Hypokalemia Status: Acute Assessment and Plan: K3.2 today. Trend labs, replac
[2022-01-27] MEDS: ACETAMINOPHEN 325 MG TABLET 650 MG PO (16:24)
[2022-01-27] MEDS: LACTULOSE 20 GM/30 ML UDC PO (16:26)
[2022-01-27] MEDS: TUBING, BLOOD PLUM PUMP TUBING 1 EACH XX ×2 (16:26)
[2022-01-27] MEDS: SIMETHICONE 80 MG TAB.CHEW PO ×2 (17:11→20:17)
[2022-01-27] MEDS: POTASSIUM CHLORIDE 20 MEQ TABLET 40 MEQ PO (17:11)
[2022-01-27] MEDS: HYDROCORTISONE/PRAMOX 1% FOAM 10 GM CAN 1 APPLIC RECTAL (18:25)
[2022-01-27] MEDS: ALPRAZolam (*CRX) 0.25 MG TABLET PO (20:18)
[2022-01-27] MEDS: GABAPENTIN 300 MG CAPSULE PO (20:18)
[2022-01-27] MEDS: cefTRIAXone 2 GM in SODIUM CHLORIDE 0.9% IV 100 ML 200 ML IVPB (20:18)
[2022-01-27] MEDS: hydrOXYzine HCL 25 MG TABLET PO (20:18)
[2022-01-27] MEDS: traZODone HCL 50 MG TABLET PO (20:19)
[2022-01-28] VITALS (24 sets, daily range): BP systolic 114–125; BP diastolic 56–75; PULSE 82–122; RESP 18–116; TEMP 36.4–36.9; O2SAT 86–98
[2022-01-28] MEDS: ALBUTEROL SULFATE NEB 2.5 MG/3 ML INH INHALATION ×3 (04:51→21:51)
[2022-01-28] MEDS: CENTRAL LINE FLUSH 10 ML IV PUSH ×3 (05:03→22:19)
[2022-01-28] MEDS: ALBUMIN HUMAN 25% 25 GM/100 ML 200 ML IVPB ×3 (05:03→22:17)
[2022-01-28] MEDS: HYDROCORTISONE/PRAMOX 1% FOAM 10 GM CAN 1 APPLIC RECTAL ×2 (05:04→18:00)
[2022-01-28 05:32] LABS: Basophils Absolute Auto 0.1 K/mm3 (0.0-0.1); Basophils Percent Auto 1.2 % (0.2-1.2); Eosinophils Absolute Auto 0.3 K/mm3 (0-0.3); Eosinophils Percent Auto 4.1 % (0-4.4); Hematocrit 25.8 % (42.0-52.0); Hemoglobin 8.1 g/dL (14.0-18.0); Immature Granulocyte Absolute 0.04 K/mm3 (0.00-0.031); Immature Granulocyte Percent A 0.6 % (0-0.5); Immature Platelet Fraction Pct 3.4 % (0.9-11.2); Immature Reticulocyte Fraction 33.7 % (3.0-15.9); Lymphocytes Absolute Auto 1.79 K/mm3 (0.9-3.2); Lymphocytes Percent Auto 24.8 % (18.3-44.2); Mean Corpuscular HGB Conc 31.4 g/dl (32-36); Mean Corpuscular Hemoglobin 24.3 pg (26-34); Mean Corpuscular Volume 77.2 fl (80-100); Mean Platelet Volume 9.6 fl (7.4-10.4); Monocytes Absolute Auto 0.7 K/mm3 (0.1-0.6); Monocytes Percent Auto 9.8 % (2.6-8.5); Neutrophils Absolute Auto 4.3 K/mm3 (1.3-6.7); Neutrophils Percent Auto 59.5 % (45.5-73.1); Platelet Count Result 106 k/mm3 (150-375); Red Blood Count 3.34 M/mm3 (4.6-6.20); Red Cell Distribution Width 28.6 % (11.5-14.5); Reticulocyte Hemoglobin Conten 28.8 pg (28.2-35.7); Reticulocyte Percent 2.84 % (0.7-4.3); Reticulocytes Absolute 0.09 B/L (32.2-175.7); White Blood Count 7.2 K/mm3 (4.5-10.0)
[2022-01-28 05:34] LABS: INR 2.3; Prothrombin Time 24.5 Seconds (11.1-14.7)
[2022-01-28 05:35] LABS: Alanine Aminotransferase 18 U/L (6-50); Albumin Level 3.9 g/dL (3.5-5.1); Alkaline Phosphatase 86 U/L (38-126); Anion Gap 10 mmol/L (8-16); Aspartate Amino Transferase 41 U/L (17-59); Bilirubin,Total 12.3 mg/dL (0.2-1.3); Blood Urea Nitrogen 14 mg/dL (9-20); Calcium 8.5 mg/dL (8.4-10.2); Carbon Dioxide 28 mmol/L (22-30); Chloride 95 mmol/L (98-107); Estimated CRCL calculation 97 ml/min; Estimated Glomerular Filt Rate > 60; Glucose 93 mg/dL (65-110); Magnesium 1.9 mg/dL (1.6-2.3); Partial Thromboplastin Time 45.4 SECONDS (22.3-36.8); Potassium 3.4 mmol/L (3.4-5.0); Sodium 133 mmol/L (137-145)
[2022-01-28 05:42] LABS: Prealbumin 3.4 mg/dL (17.6-36.0)
[2022-01-28 06:01] LABS: Anisocytosis 1+ (NORMAL); Hypochromasia 1+ (NORMAL); Ovalocytes 1+ (NORMAL); Platelet Estimate Decreased (Adequate)
[2022-01-28 06:02] LABS: Schistocytes 1+ (NORMAL)
--- NOTE | 2022-01-28 07:50 | WPDGIPROGNO ---
Progress Note: A&P Assessment and Plan (1) Bleeding hemorrhoids: Code(s): K64.9 - Unspecified hemorrhoids Status: Acute Assessment and Plan: Hemorrhoids appear to be source of recent rectal bleeding. Surgery now following. Plan for stool softeners. Hemorrhoidal creams. Consider surgery because of significant blood loss. (2) Cirrhosis: Code(s): K74.60 - Unspecified cirrhosis of liver Status: Chronic Assessment and Plan: Alcoholic cirrhosis liver evident. Markedly elevated bilirubin on this basis. Strict alcohol abstinence encouraged. Supportive care for now. Low-salt diet because of ascites. Low-dose lactulose because of elevated ammonia level. Patient's mentation appears good at present. (3) Ascites: Code(s): R18.8 - Other ascites Status: Acute Assessment and Plan: Low-salt diet. Restrict fluid intake if sodium falls below 130. Aldactone started at low dose, increased diuresis as tolerated suggested. (4) Alcohol dependence: Code(s): F10.20 - Alcohol dependence, uncomplicated Status: Acute Assessment and Plan: Alcohol avoidance and rehab strongly encouraged. (5) Anemia: Code(s): D64.9 - Anemia, unspecified Status: Acute Assessment and Plan: Anemia appears to be multifactorial. Related to chronic illness but recently worsen because of rectal bleeding from hemorrhoids. Continue to monitor and transfuse accordingly. Hemoglobin 8.1 today stable. He has received 6units of blood so far. Subjective Date/time seen: 01/28/22 07:50 Patient alert this morning. Notices rectal discomfort associated with hemorrhoids. Minimal bleeding noted overnight. Tolerated diet. Review of Systems Review of Systems: Review of systems noncontributory. Exam Narrative: Physical exam reveals patient be alert comfortable at rest in bed. HEENT exam reveals scleral icterus. Lungs are clear. Heart without murmur. Abdomen with mild distention. Minimal shifting at this time. No significant organomegaly. No localized tenderness. Rectal exam with external hemorrhoids noted somewhat tender. Objective Data Vital Signs Vital Signs: Vital Signs - 24 hr 01/27/22 08:00 01/27/22 09:38 01/27/22 09:41 Temperature 97.4 F L Pulse Rate 116 H 108 H 108 H Respiratory Rate 12 18 18 Blood Pressure 114/60 Pulse Oximetry 94 92 Oxygen Delivery Room Air 01/27/22 09:47 01/27/22 08:00 01/27/22 08:00 Temperature Pulse Rate 111 H 115 H Respiratory Rate 18 Blood Pressure Pulse Oximetry Oxygen Delivery Room Air 01/27/22 10:00 01/27/22 11:47 01/27/22 12:02 Temperature 98.5 F 98.5 F Pulse Rate 121 H 107 H 104 H Respiratory Rate 18 18 Blood Pressure 119/59 L 120/59 L Pulse Oximetry 94 93 Oxygen Delivery 01/27/22 12:00 01/27/22 12:00 01/27/22 12:30 Temperature 97.8 F Pulse Rate 106 H 105 H Respiratory Rate 16 Blood Pressure 117/58 L Pulse Oximetry 94 Oxygen Delivery Room Air Room Air 01/27/22 14:29 01/27/22 14:39 01/27/22 14:49 Temperature Pulse Rate 114 H 106 H 110 H Respiratory Rate 34 H 25 H 34 H Blood Pressure 105/67 123/78 127/81 Pulse Oximetry 91 91 92 Oxygen Delivery Room Air Room Air Room Air 01/27/22 16:33 01/27/22 16:00 01/27/22 16:50 Temperature 97.2 F L 98 F Pulse Rate 111 H 110 H Respiratory Rate 18 20 Blood Pressure 112/50 L 119/61 Pulse Oximetry 94 95 Oxygen Delivery Room Air 01/27/22 16:00 01/27/22 18:00 01/27/22 18:12 Temperature 97.8 F Pulse Rate 112 H 107 H 107 H Respiratory Rate 16 Blood Pressure 117/66 Pulse Oximetry 95 Oxygen Delivery 01/27/22 20:00 01/27/22 20:39 01/27/22 20:00 Temperature 98.0 F Pulse Rate 107 H 108 H 107 H Respiratory Rate 16 20 Blood Pressure 114/56 L Pulse Oximetry 95 96 Oxygen Delivery Room Air 01/27/22 22:00 01/28/22 00:00 01/28/22 00:00 Temperature Pulse Rate 104 H 10
--- NOTE | 2022-01-28 08:40 | PM.IMPN ---
Progress Note: A&P Assessment and Plan (1) Alcoholic cirrhosis of liver with ascites: Code(s): K70.31 - Alcoholic cirrhosis of liver with ascites Status: Acute Assessment and Plan: Status post paracentesis on January 26, Gram stain and cultures negative for infection Abdomen pelvis CT from January 24 showed small left pleural effusion, cirrhosis with portal hypertension and possible liver lesions, recommended outpatient MRI of the liver, also noted moderate ascites with some anasarca Severe, end-stage liver disease suspected due to portal HTN, recurrent ascites, elevated bilirubin, elevated INR, rectal varices suspected, MELD score of 30, Child-Solorzano score of 12, class C (2) Thrombosed hemorrhoids: Code(s): K64.5 - Perianal venous thrombosis Status: Acute Assessment and Plan: Appreciate general surgery consultation, status post transfusion due to bleeding likely from hemorrhoids, monitor (3) Hyponatremia: Code(s): E87.1 - Hypo-osmolality and hyponatremia Status: Acute Assessment and Plan: Improved to 133, up from 129 a few days ago, monitor (4) Hyperbilirubinemia: Code(s): E80.6 - Other disorders of bilirubin metabolism Status: Acute Assessment and Plan: Increased from 10-12, monitor (5) Coagulopathy: Code(s): D68.9 - Coagulation defect, unspecified Status: Acute Assessment and Plan: INR 2.3, monitor Will give vitamin K and FFP (6) Thrombocytopenia: Code(s): D69.6 - Thrombocytopenia, unspecified Status: Acute Assessment and Plan: Platelets stable between 100-120, monitor (7) Acute blood loss anemia: Code(s): D62 - Acute posthemorrhagic anemia Status: Acute Assessment and Plan: Secondary to hemorrhoids, appreciate surgery consultation, monitor Will give fresh frozen plasma, vitamin K today in anticipation for possible OR tomorrow (8) Hypoxia: Code(s): R09.02 - Hypoxemia Status: Acute Assessment and Plan: Likely secondary to pulmonary edema alveolar hemorrhages, will give Lasix, increase Aldactone start a beta-sun, goal heart rate less than 70 Plan DVT prophylaxis with SCDs GI prophylaxis not indicated Code status full code Subjective Date/time seen: 01/28/22 08:40 Interval history: No overnight events noted. No chest pain or shortness of breath. No fevers or chills. Review of Systems Review of Systems: 12 point review of systems was assessed and was negative except as noted in the HPI Exam Narrative: General: No acute distress, alert and oriented per baseline HEENT: Atraumatic, normocephalic, mucous membranes moist CV: Tachycardic, S1, S2 Lungs: Tachypneic with some crackles noted at bases, somewhat diminished throughout Abdomen: Distended, somewhat tender to palpation Extremities: Normal to inspection Skin: No rashes noted, no lesions or wounds seen Psych: Euthymic, normal affect Objective Data Vital Signs Vital Signs: Vital Signs - 24 hr 01/27/22 09:38 01/27/22 09:41 01/27/22 09:47 Temperature Pulse Rate 108 H 108 H 111 H Respiratory Rate 18 18 18 Blood Pressure Pulse Oximetry 92 Oxygen Delivery Room Air 01/27/22 10:00 01/27/22 11:47 01/27/22 12:02 Temperature 98.5 F 98.5 F Pulse Rate 121 H 107 H 104 H Respiratory Rate 18 18 Blood Pressure 119/59 L 120/59 L Pulse Oximetry 94 93 Oxygen Delivery 01/27/22 12:00 01/27/22 12:00 01/27/22 12:30 Temperature 97.8 F Pulse Rate 106 H 105 H Respiratory Rate 16 Blood Pressure 117/58 L Pulse Oximetry 94 Oxygen Delivery Room Air Room Air 01/27/22 14:29 01/27/22 14:39 01/27/22 14:49 Temperature Pulse Rate 114 H 106 H 110 H Respiratory Rate 34 H 25 H 34 H Blood Pressure 105/67 123/78 127/81 Pulse Oximetry 91 91 92 Oxygen Delivery Room Air Room Air Room Air 01/27/22 16:33 01/27/22 16:00 01/27/22 16:50 Temperature 97.2 F L 98 F Pu
[2022-01-28] MEDS: SIMETHICONE 80 MG TAB.CHEW PO ×4 (09:13→20:50)
[2022-01-28] MEDS: busPIRone HCL 5 MG TABLET PO ×2 (09:13→20:51)
[2022-01-28] MEDS: THIAMINE HCL 200 MG/2 ML VIAL 100 MG IV PUSH (09:13)
[2022-01-28] MEDS: FOLIC ACID 1 MG/0.2 ML INJ IV PUSH (09:14)
[2022-01-28] MEDS: SPIRONOLACTONE 50 MG TABLET PO (09:14)
[2022-01-28] MEDS: HYDROCORTISONE/PRAMOXINE 2.5% 30 GM CREAM 1 APPLIC RECTAL ×2 (09:14→20:52)
[2022-01-28] MEDS: levETIRAcetam 500 MG TABLET 1000 MG PO ×2 (09:14→20:50)
--- NOTE | 2022-01-28 09:22 | WPDANESPN ---
Anes - Prog Note Post-Op Date/Time: 01/28/22 08:32 Cardiovascular status: normal Respiratory status: other (pt having complaints of SOB, beside pulse ox 90-92%, resp sl labored. O2 NC sat improved to 95%, RN notified of pt c/o SOB) Airway patency: baseline Mental status: baseline Post-Op hydration status: normal Vital Signs: Last Vital Signs Temp 98.4 F 01/28/22 08:00 Pulse 82 01/28/22 08:00 Resp 20 01/28/22 08:00 BP 114/56 L 01/28/22 08:00 Pulse Ox 92 01/28/22 08:00 O2 Del Method Room Air 01/28/22 04:00 O2 Flow Rate 2 01/26/22 03:16 Pain Score (VAS): 0 I/O: Intake & Output 01/27/22 01/28/22 01/28/22 23:59 07:59 15:59 Intake Total 1030 200 200 Output Total 250 200 Balance 780 0 200 Laboratory Tests 01/28/22 05:01 01/28/22 05:01 01/24/22 01/26/22 01/28/22 18:50 23:16 05:01 WBC 7.2 RBC 3.34 L Hgb 8.1 L Hct 25.8 L MCV 77.2 L D MCH 24.3 L D MCHC 31.4 L RDW 28.6 H Plt Count 106 L MPV 9.6 Immature Gran % (Auto) 0.6 H Neut % (Auto) 59.5 Lymph % (Auto) 24.8 [place] % (Auto) 9.8 H Eos % (Auto) 4.1 Baso % (Auto) 1.2 Lymph # (Auto) 1.79 [place] # (Auto) 0.7 H Eos # (Auto) 0.3 Baso # (Auto) 0.1 Abs Immat Gran (auto) 0.04 H Absolute Neuts (auto) 4.3 Absolute Nucleated RBC 0.0 Nucleated RBC % 0.0 Platelet Estimate Decreased % Immature Plt Fraction 3.4 Hypochromasia 1+ Anisocytosis 1+ Ovalocytes 1+ Schistocytes 1+ Absolute Retic 0.09 L Percent Retic 2.84 Immature Retic Fraction 33.7 H Retic Hgb Content 28.8 PT INR APTT Sodium Potassium Chloride Carbon Dioxide Anion Gap BUN Creatinine Estim Creat Clear Calc Estimated GFR Glucose Calcium Magnesium Total Bilirubin AST ALT Alkaline Phosphatase Total Protein Albumin Prealbumin U Random Total Protein Cancelled Ur Random Sodium Cancelled Ur Random Potassium Cancelled Urine Total Volume Cancelled Urine Creatinine Cancelled Protein/Creat Ratio 2 Cancelled Blood Type A Positive Antibody Screen Negative Crossmatch See Detail 01/28/22 01/28/22 05:01 05:01 WBC RBC Hgb Hct MCV MCH MCHC RDW Plt Count MPV Immature Gran % (Auto) Neut % (Auto) Lymph % (Auto) [place] % (Auto) Eos % (Auto) Baso % (Auto) Lymph # (Auto) [place] # (Auto) Eos # (Auto) Baso # (Auto) Abs Immat Gran (auto) Absolute Neuts (auto) Absolute Nucleated RBC Nucleated RBC % Platelet Estimate % Immature Plt Fraction Hypochromasia Anisocytosis Ovalocytes Schistocytes Absolute Retic Percent Retic Immature Retic Fraction Retic Hgb Content PT 24.5 H INR 2.3 APTT 45.4 H Sodium 133 L Potassium 3.4 Chloride 95 L Carbon Dioxide 28 Anion Gap 10 BUN 14 Creatinine 1.10 Estim Creat Clear Calc 97 Estimated GFR > 60 Glucose 93 Calcium 8.5 Magnesium 1.9 Total Bilirubin 12.3 H AST 41 ALT 18 Alkaline Phosphatase 86 Total Protein 6.0 L Albumin 3.9 Prealbumin 3.4 L U Random Total Protein Ur Random Sodium Ur Random Potassium Urine Total Volume Urine Creatinine Protein/Creat Ratio 2 Blood Type Antibody Screen Crossmatch Microbiology 01/26/22 09:13 Peritoneal Fluid Anaerobic Culture - Preliminary 01/26/22 09:13 Peritoneal Fluid Aerobic Culture - Preliminary 01/26/22 09:13 Ascites Fluid Gram Stain - Final Post-procedural complaints: none Patient Feedback: Patient satisfied with anesthetic care.
[2022-01-28] MEDS: IPRATROPIUM BR 0.02% INH SOLN 0.5 MG/2.5 ML VIAL INHALATION (09:55)
[2022-01-28] MEDS: ALPRAZolam (*CRX) 0.25 MG TABLET PO ×2 (12:36→20:51)
--- NOTE | 2022-01-28 13:09 | P.PNNP_ITS ---
Progress Note: A&P Assessment and Plan (1) Acute renal failure: Code(s): N17.9 - Acute kidney failure, unspecified Status: Acute Assessment and Plan: * resolved * suspect volume depletion due to poor oral intake * despite outward signs of edema, probably had a component intravascular volume depletion on admission * renal ultrasound normal * follow I/Os * trend labs (2) Hyponatremia: Code(s): E87.1 - Hypo-osmolality and hyponatremia Status: Acute Assessment and Plan: * slow improvement noted * several possible etiologies: * volume depletion * medications [omeprazole (PPI) or buspirone] * liver disease (prone to causing pre-renal azotemia) * continue free water restriction * would try to avoid salt tabs * evaluation to date: * TSH okay and cortisol okay * urine electrolytes pending * SPEP, UPEP and urine/serum osmolality * follow trend of repeat sodium levels (3) Hypokalemia: Code(s): E87.6 - Hypokalemia Status: Acute Assessment and Plan: * suspect total body store depleted state * hypomagnesemia possibly playing a role * aggressive replacement PRN * use of spironolactone should help (4) Anemia: Code(s): D64.9 - Anemia, unspecified Status: Acute Assessment and Plan: * s/p 6 units of PRBC transfusion since admission * EGD negative * colonoscopy with extrenal and internal hemorrhoids noted * GI and Surgery following * possible surgical intervention? * PRBC per protocol * follow trend of H/H (5) Cirrhosis: Code(s): K74.60 - Unspecified cirrhosis of liver Status: Chronic Assessment and Plan: * alcoholic cirrhosis of liver by history and imaging * GI recommendations noted * s/p paracentesis (on 01/26/22) Not much else to add -- will continue to follow from a distance. Subjective Date/time seen: 01/28/22 13:09 Colonoscopy results noted yesterday with subsequent surgical consultation; H/H relatively stable at this time; some mild shortness of breath reported earlier today so IV lasix ordered; no other acute issues to report at this time. Exam Narrative: General: ill appearing male in NAD Heart: normal S1 and S2; no rub Lungs: clear to auscultation Abdomen: soft, nontender, nondistended, positive bowel sounds Extremities: no cyanosis or clubbing; trace edema Skin: warm and dry; jaundiced Objective Data Vital Signs Vital Signs: Vital Signs Temp Pulse Resp BP Pulse Ox O2 Del Method O2 Flow Rate 01/28/22 12:00 113 H 01/28/22 10:00 108 H 01/28/22 08:00 114 H 01/28/22 12:00 36.7 C 112 H 24 H 125/61 98 01/28/22 12:00 82 20 92 Room Air 01/28/22 10:06 109 H 18 01/28/22 09:55 102 H 18 01/28/22 08:00 92 Nasal Cannula 2 01/28/22 08:00 36.9 C 82 20 114/56 L 92 01/28/22 06:00 115 H 01/28/22 04:59 109 H 18 01/28/22 04:51 112 H 18 01/28/22 04:00 107 H 01/28/22 04:00 114 H 20 96 Room Air 01/28/22 02:00 114 H 01/28/22 00:00 104 H 20 96 Room Air 01/28/22 00:00 104 H 01/27/22 22:00 104 H 01/27/22 20:00 107 H 01/27/22 20:39 36.7 C 108 H 20 114/56 L 96
--- NOTE | 2022-01-28 13:09 | PM.PNNEP ---
Progress Note: A&P Assessment and Plan (1) Acute renal failure: Code(s): N17.9 - Acute kidney failure, unspecified Status: Acute Assessment and Plan: resolved suspect volume depletion due to poor oral intake despite outward signs of edema, probably had a component intravascular volume depletion on admission renal ultrasound normal follow I/Os trend labs (2) Hyponatremia: Code(s): E87.1 - Hypo-osmolality and hyponatremia Status: Acute Assessment and Plan: slow improvement noted several possible etiologies: volume depletion medications [omeprazole (PPI) or buspirone] liver disease (prone to causing pre-renal azotemia) continue free water restriction would try to avoid salt tabs evaluation to date: TSH okay and cortisol okay urine electrolytes pending SPEP, UPEP and urine/serum osmolality follow trend of repeat sodium levels (3) Hypokalemia: Code(s): E87.6 - Hypokalemia Status: Acute Assessment and Plan: suspect total body store depleted state hypomagnesemia possibly playing a role aggressive replacement PRN use of spironolactone should help (4) Anemia: Code(s): D64.9 - Anemia, unspecified Status: Acute Assessment and Plan: s/p 6 units of PRBC transfusion since admission EGD negative colonoscopy with extrenal and internal hemorrhoids noted GI and Surgery following possible surgical intervention? PRBC per protocol follow trend of H/H (5) Cirrhosis: Code(s): K74.60 - Unspecified cirrhosis of liver Status: Chronic Assessment and Plan: alcoholic cirrhosis of liver by history and imaging GI recommendations noted s/p paracentesis (on 01/26/22) Not much else to add -- will continue to follow from a distance. Subjective Date/time seen: 01/28/22 13:09 Colonoscopy results noted yesterday with subsequent surgical consultation; H/H relatively stable at this time; some mild shortness of breath reported earlier today so IV lasix ordered; no other acute issues to report at this time. Exam Narrative: General: ill appearing male in NAD Heart: normal S1 and S2; no rub Lungs: clear to auscultation Abdomen: soft, nontender, nondistended, positive bowel sounds Extremities: no cyanosis or clubbing; trace edema Skin: warm and dry; jaundiced Objective Data Vital Signs Vital Signs: Vital Signs Temp Pulse Resp BP Pulse Ox O2 Del Method O2 Flow Rate 01/28/22 12:00 113 H 01/28/22 10:00 108 H 01/28/22 08:00 114 H 01/28/22 12:00 36.7 C 112 H 24 H 125/61 98 01/28/22 12:00 82 20 92 Room Air 01/28/22 10:06 109 H 18 01/28/22 09:55 102 H 18 01/28/22 08:00 92 Nasal Cannula 2 01/28/22 08:00 36.9 C 82 20 114/56 L 92 01/28/22 06:00 115 H 01/28/22 04:59 109 H 18 01/28/22 04:51 112 H 18 01/28/22 04:00 107 H 01/28/22 04:00 114 H 20 96 Room Air 01/28/22 02:00 114 H 01/28/22 00:00 104 H 20 96 Room Air 01/28/22 00:00 104 H 01/27/22 22:00 104 H 01/27/22 20:00 107 H 01/27/22 20:39 36.7 C 108 H 20 114/56 L 96 01/27/22 20:00 107 H 16 95 Room Air 01/27/22 18:12 36.6 C 107 H 16 117/66 95 01/27/22 18:00 107 H Intake/Output Intake/Output: Intake & Output 01/25/22 01/26/22 01/27/22 01/28/22 23:59 23:59 23:59 23:59 Intake Total 2180 1850 1880 790 Output Total 1100 3920 1050 200 Balance 1080 -2070 830 590 Meds/Results Medications: Active Medications Generic Name Dose Route Start Last Admin Trade Name Freq PRN Reason Stop Dose Admin Acetaminophen 650 mg 01/27/22 16:00 01/27/22 16:24 Acetaminophen 325 Mg Tablet PO 650 mg Q6H PRN Administration Mild Pain (1-3) or Fever Albuterol 2.5 mg 01/28/22 09:38 01/28/22 09:55 Albuterol Sulfate Neb 2.5 Mg/3 Ml Inh INHALATION 2
--- NOTE | 2022-01-28 14:47 | PM.PNGS ---
Progress Note: A&P Assessment and Plan (1) Bleeding hemorrhoids: Code(s): K64.9 - Unspecified hemorrhoids Status: Acute Assessment and Plan: External hemorrhoids noted on colonoscopy with stigmata of bleeding. No active bleeding on exam today. Very small amount of drainage overnight from the hemorrhoids, which would not account for any significant drop in hemoglobin. Will continue to treat conservatively for now and reserve any surgical intervention if he has active bleeding. Continue alternating the hydrocortisone/pramoxin cream and foam every 6 hours for relief. Patient agreed to try the cream instead of refusing. Could also consider an oral analgesic to help with rectal pain while they are inflamed. Continue sitz baths (2) GI bleed: Code(s): K92.2 - Gastrointestinal hemorrhage, unspecified Status: Acute Assessment and Plan: S/p colonoscopy and EGD. EGD negative. Colonoscopy only with findings of internal and external hemorrhoids with stigmata of bleeding on the external hemorrhoids. See plan above. (3) Anemia: Code(s): D64.9 - Anemia, unspecified Status: Acute Assessment and Plan: Received a total of 6 units PRBCs since admission (2 units yesterday). Hgb came up to 8.1 today. Continue to monitor Q6H H/H until stabilized. Transfuse as needed. (4) Cirrhosis: Code(s): K74.60 - Unspecified cirrhosis of liver Status: Chronic Assessment and Plan: Advanced alcoholic liver cirrhosis with evidence of cirrhosis and portal hypertension on imaging. He has ascites and underwent a paracentesis 01/26/22 yielding over 2 liters of fluid. Coags rechecked this morning and are slightly higher. FFP and vitamin K ordered by Hospitalist today. Repeat tomorrow. (5) Ascites: Code(s): R18.8 - Other ascites Status: Acute Assessment and Plan: S/p paracentesis yesterday with over 2 liters of fluid removed. Ascites fluid studies pending. (6) Alcohol dependence: Code(s): F10.20 - Alcohol dependence, uncomplicated Status: Acute Assessment and Plan: Encouraged strict alcohol avoidance for this patient moving forward. (7) Acute renal failure: Code(s): N17.9 - Acute kidney failure, unspecified Status: Acute (8) Tobacco dependence: Code(s): F17.200 - Nicotine dependence, unspecified, uncomplicated Status: Acute (9) Hyponatremia: Code(s): E87.1 - Hypo-osmolality and hyponatremia Status: Acute (10) Hypokalemia: Code(s): E87.6 - Hypokalemia Status: Acute Plan I have discussed the patient's case and plan of care with Dr. Gill. Subjective Subjective Date/Time Seen: 01/28/22 14:20 Patient reports: still having pain (rectal pain), flatus, bowel movement (x2 soft BMs), shortness of breath (more short of breath today, O2 requirements up to 6L NC) and afebrile Interval history: He is feeling worse today overall. He is more short of breath and feeling fatigued. He has a poor appetite but is able to tolerate food. He does not feel that any rectal creams or foams are helping with his rectal pain. He and the nurse report that he has been refusing the cream but allowing the hydrocortisone foam. He is agreeable now to try using it knowing it may help his pain. He is asking about taking something orally for his rectal pain. He reports having two soft BMs today with blood dripping into the stool after each BM. He states he has been having bleeding into his depends as well, and the current depend he is wearing is from last night and all day today. No nausea or other complaints at this time. Review of Systems Constitutional: Constitutional: Reports no additional constitutional complaints, Denies fever(s), Denies headache(s) and Reports poor appetite Cardiovascular: Cardiovascular: Reports no additional cardiovascular complaints, Denies chest pain and Reports pedal edema (same as yesterday extrem
[2022-01-28] MEDS: PHYTONADIONE 2.5 MG TAB PO (14:52)
[2022-01-28] MEDS: FUROSEMIDE INJ 40 MG/4 ML VIAL IV PUSH (14:52)
[2022-01-28] MEDS: carvediloL 3.125 MG TABLET PO ×2 (14:53→20:51)
[2022-01-28] MEDS: MAGNESIUM SULF 2 GM/WATER 50ML 2 GM/50 ML BAG IVPB (15:08)
[2022-01-28 15:22] LABS: Hematocrit 25.4 % (42.0-52.0); Hemoglobin 8.2 g/dL (14.0-18.0); Mean Corpuscular HGB Conc 32.3 g/dl (32-36); Mean Corpuscular Hemoglobin 24.8 pg (26-34); Mean Corpuscular Volume 76.7 fl (80-100); Mean Platelet Volume 9.4 fl (7.4-10.4); Platelet Count Result 104 k/mm3 (150-375); Red Blood Count 3.31 M/mm3 (4.6-6.20); Red Cell Distribution Width 28.5 % (11.5-14.5); White Blood Count 7.2 K/mm3 (4.5-10.0)
[2022-01-28 15:31] LABS: Alanine Aminotransferase 17 U/L (6-50); Alkaline Phosphatase 81 U/L (38-126); Anion Gap 12 mmol/L (8-16); Aspartate Amino Transferase 43 U/L (17-59); Bilirubin,Total 11.5 mg/dL (0.2-1.3); Blood Urea Nitrogen 14 mg/dL (9-20); Calcium 8.6 mg/dL (8.4-10.2); Carbon Dioxide 26 mmol/L (22-30); Chloride 96 mmol/L (98-107); Estimated CRCL calculation 106 ml/min; Estimated Glomerular Filt Rate > 60; Glucose 116 mg/dL (65-110); Potassium 3.3 mmol/L (3.4-5.0); Sodium 134 mmol/L (137-145)
[2022-01-28] MEDS: SODIUM CHLORIDE 0.9% IV 250 ML 30 ML IV CONT (17:58)
[2022-01-28] MEDS: LACTULOSE 20 GM/30 ML UDC PO (17:59)
[2022-01-28] MEDS: SPIRONOLACTONE 50 MG TABLET 100 MG PO (17:59)
[2022-01-28] MEDS: TUBING, BLOOD PLUM PUMP TUBING 1 EACH XX (18:00)
[2022-01-28 18:37] LABS: Alpha 1 Globulin 0.3 g/dL (0.2-0.3); Alpha 2 Globulin 0.3 g/dL (0.5-0.9); Beta 1 Globulin 0.2 g/dL (0.4-0.6); Gamma Globulin 1.2 g/dL (0.8-1.7); Protein, Total 5.4 g/dL (6.1-8.1)
[2022-01-28] MEDS: traZODone HCL 50 MG TABLET PO (20:49)
[2022-01-28] MEDS: hydrOXYzine HCL 25 MG TABLET PO (20:50)
[2022-01-28] MEDS: GABAPENTIN 300 MG CAPSULE PO (20:50)
[2022-01-28] MEDS: FUROSEMIDE INJ 40 MG/4 ML VIAL 20 MG IV PUSH (20:55)
--- NOTE | 2022-01-28 21:11 | PC.NURSE ---
PATIENT EXTREMELY ANXIOUS, REMOVED O2, EXTREMELY SOB, FINE CRACKLES IN BASE. HAD TO CONVINCE PATIENT TO PLACE O2 BACK ON AND TO KEEP IT ON. HE STATED THAT HE HAD A BLOODY NOSE AND DIDN'T WANT TO WEAR IT. NO ACTIVE BLEEDING AT THIS TIME. PATIENT COMPLIED WITH O2 AFTER TOLD BENEFITS OF IT. PATIENT GIVEN MEDICATION TO HELP WITH ANXIETY.
[2022-01-28 22:08] LABS: Glucose Peritoneal Fluid 102 mg/dL; LDH Peritoneal Fluid 32 U/L (<63); Total Protein Peritoneal Fluid <3.0 g/dL
[2022-01-28 23:23] LABS: Alveolar/Arterial O2 Gradient 124.8 mmHg; Base Excess ABG 4.4 mEq/l (+/-2.0); Device NASAL CANNULA; Fractional Inspired Oxygen 32 %; HCO3 ABG 27.9 mEq/l (22.0-26.0); Modified Allen's Test Pass; Oxygen Content ABG 11.9 %vol (16.0-22.0); Oxygen Saturation ABG 92.8 % (95.0-100.0); Oxyhemoglobin 89.3 % THb (90.0-100.0); PCO2 ABG 37.5 mmHg (35.0-45.0); PO2 ABG 59.5 mmHg (80.0-100.0); PO2 FiO2 Ratio Arterial Blood 1.86 %; Site Drawn RIGHT RADIAL; Total Hemoglobin 9.4 g/dL (12.0-18.0)
[2022-01-29] VITALS (22 sets, daily range): BP systolic 113–133; BP diastolic 62–80; PULSE 92–113; RESP 13–24; TEMP 36.5–37; O2SAT 90–100; BMI 27.1
[2022-01-29] MEDS: FUROSEMIDE INJ 40 MG/4 ML VIAL 20 MG IV PUSH ×2 (00:27→23:08)
[2022-01-29 00:34] LABS: Hematocrit 25.5 % (42.0-52.0); Hemoglobin 8.1 g/dL (14.0-18.0)
[2022-01-29] MEDS: LORazepam INJ (*CRX) 2 MG/ML VIAL 0.25 MG IV PUSH (02:52)
[2022-01-29] MEDS: ALBUMIN HUMAN 25% 25 GM/100 ML 200 ML IVPB ×3 (05:44→21:10)
[2022-01-29] MEDS: CENTRAL LINE FLUSH 10 ML IV PUSH ×2 (05:44→13:38)
[2022-01-29 06:08] LABS: Basophils Absolute Auto 0.1 K/mm3 (0.0-0.1); Basophils Percent Auto 1.3 % (0.2-1.2); Eosinophils Absolute Auto 0.4 K/mm3 (0-0.3); Eosinophils Percent Auto 5.6 % (0-4.4); Hematocrit 24.4 % (42.0-52.0); Hemoglobin 7.8 g/dL (14.0-18.0); Immature Granulocyte Absolute 0.03 K/mm3 (0.00-0.031); Immature Granulocyte Percent A 0.4 % (0-0.5); Immature Platelet Fraction Pct 3.1 % (0.9-11.2); Lymphocytes Absolute Auto 1.41 K/mm3 (0.9-3.2); Lymphocytes Percent Auto 20.2 % (18.3-44.2); Mean Corpuscular Hemoglobin 24.3 pg (26-34); Monocytes Absolute Auto 0.6 K/mm3 (0.1-0.6); Monocytes Percent Auto 8.6 % (2.6-8.5); Neutrophils Absolute Auto 4.5 K/mm3 (1.3-6.7); Neutrophils Percent Auto 63.9 % (45.5-73.1); Platelet Count Result 94 k/mm3 (150-375); Red Blood Count 3.21 M/mm3 (4.6-6.20); Red Cell Distribution Width 28.9 % (11.5-14.5)
[2022-01-29 06:22] LABS: INR 2.3; Prothrombin Time 24.6 Seconds (11.1-14.7)
[2022-01-29 06:23] LABS: Partial Thromboplastin Time 46.2 SECONDS (22.3-36.8)
[2022-01-29 06:27] LABS: Alanine Aminotransferase 15 U/L (6-50); Albumin Level 4.1 g/dL (3.5-5.1); Alkaline Phosphatase 72 U/L (38-126); Anion Gap 13 mmol/L (8-16); Aspartate Amino Transferase 39 U/L (17-59); Blood Urea Nitrogen 12 mg/dL (9-20); Calcium 8.8 mg/dL (8.4-10.2); Carbon Dioxide 29 mmol/L (22-30); Chloride 95 mmol/L (98-107); Estimated CRCL calculation 117 ml/min; Estimated Glomerular Filt Rate > 60; Glucose 90 mg/dL (65-110); Magnesium 1.8 mg/dL (1.6-2.3); Potassium 3.1 mmol/L (3.4-5.0); Sodium 137 mmol/L (137-145)
[2022-01-29 06:54] LABS: Platelet Estimate Decreased (Adequate)
[2022-01-29 06:55] LABS: Hypochromasia 1+ (NORMAL); Macrocytosis 1+ (NORMAL); Polychromasia 1+ (NORMAL); Schistocytes None Seen (NORMAL); Target Cells 1+ (NORMAL)
--- NOTE | 2022-01-29 07:14 | WPDGIPROGNO ---
Progress Note: A&P Assessment and Plan (1) Cirrhosis: Code(s): K74.60 - Unspecified cirrhosis of liver Status: Chronic Assessment and Plan: Patient with underlying alcoholic cirrhosis laboratory parameters are consistent with this with thrombocytopenia elevated bilirubin coagulopathy. Plan supportive care. Because of ascites low-salt diet and diuretics are to be continued. Will need to try to increase activity. (2) Thrombosed hemorrhoids: Code(s): K64.5 - Perianal venous thrombosis Status: Acute Assessment and Plan: Surgery following as hemorrhoids have been bleeding significantly recently. (3) Hyperbilirubinemia: Code(s): E80.6 - Other disorders of bilirubin metabolism Status: Acute (4) Coagulopathy: Code(s): D68.9 - Coagulation defect, unspecified Status: Acute (5) Thrombocytopenia: Code(s): D69.6 - Thrombocytopenia, unspecified Status: Acute (6) Alcohol dependence: Code(s): F10.20 - Alcohol dependence, uncomplicated Status: Acute Subjective Date/time seen: 01/29/22 07:14 Patient alert this morning. Tolerating diet. Reports less bleeding from the hemorrhoids. They were less tender with current therapy. Not getting out of bed much. Review of Systems Review of Systems: Review of systems noncontributory. Exam Narrative: Physical exam reveals patient to be alert. Vital signs are stable. HEENT exam with significant icterus. Lungs are clear. Heart without murmur. Abdomen less distended. Bowel sounds are present soft no organomegaly evident. Objective Data Vital Signs Vital Signs: Vital Signs - 24 hr 01/28/22 08:00 01/28/22 08:00 01/28/22 09:55 Temperature 98.4 F Pulse Rate 82 102 H Respiratory Rate 20 18 Blood Pressure 114/56 L Pulse Oximetry 92 92 Oxygen Delivery Nasal Cannula Oxygen Flow Rate 2 01/28/22 10:06 01/28/22 12:00 01/28/22 12:00 Temperature 98.1 F Pulse Rate 109 H 112 H Respiratory Rate 18 24 H Blood Pressure 125/61 Pulse Oximetry 95 98 Oxygen Delivery Nasal Cannula Oxygen Flow Rate 6 01/28/22 08:00 01/28/22 10:00 01/28/22 12:00 Temperature Pulse Rate 114 H 108 H 113 H Respiratory Rate Blood Pressure Pulse Oximetry Oxygen Delivery Oxygen Flow Rate 01/28/22 14:00 01/28/22 14:53 01/28/22 16:00 Temperature 97.9 F Pulse Rate 122 H 113 H 114 H Respiratory Rate 116 H Blood Pressure 125/72 Pulse Oximetry 98 Oxygen Delivery Oxygen Flow Rate 01/28/22 16:00 01/28/22 16:00 01/28/22 17:47 Temperature 97.6 F Pulse Rate 107 H 99 Respiratory Rate 26 H Blood Pressure 119/71 Pulse Oximetry 95 95 Oxygen Delivery Nasal Cannula Oxygen Flow Rate 6 01/28/22 18:03 01/28/22 18:00 01/28/22 19:45 Temperature 98.0 F 98.2 F Pulse Rate 96 98 103 H Respiratory Rate 26 H 22 H Blood Pressure 117/71 125/75 Pulse Oximetry 96 86 L Oxygen Delivery Oxygen Flow Rate 01/28/22 20:51 01/28/22 20:00 01/28/22 21:52 Temperature Pulse Rate 101 H 101 H 103 H Respiratory Rate 22 H 18 Blood Pressure Pulse Oximetry 86 L Oxygen Delivery Nasal Cannula Oxygen Flow Rate 6 01/28/22 21:54 01/28/22 22:03 01/28/22 20:00 Temperature Pulse Rate 103 H 105 H 98 Respiratory Rate 20 Blood Pressure Pulse Oximetry 94 Oxygen Delivery Nasal Cannula Oxygen Flow Rate 3 01/28/22 22:00 01/29/22 00:00 01/29/22 00:00 Temperature 97.9 F Pulse Rate 102 H 96 96 Respiratory Rate 20 Blood Pressure 121/73 Pulse Oximetry 94 Oxygen Delivery Oxygen Flow Rate 01/29/22 00:00 01/29/22 02:00 01/29/22 04:00 Temperature Pulse Rate 96 100 96 Respiratory Rate 20 Blood Pressure Pulse Oximetry 94 Oxygen Delivery Nasal Cannula Oxygen Flow Rate 3 01/29/22 04:00 01/29/22 04:00 Temperature 98.0 F Pulse Rate 100 100 Respiratory Rate 20 20 Blood Pressure 130/80 Puls
[2022-01-29 08:09] LABS: Lambda Light Chain 52.2 mg/L (5.7-26.3)
[2022-01-29] MEDS: POTASSIUM CHLORIDE 20 MEQ TABLET 40 MEQ PO (09:05)
[2022-01-29] MEDS: SIMETHICONE 80 MG TAB.CHEW PO ×4 (09:05→20:42)
[2022-01-29] MEDS: PANTOPRAZOLE 40 MG TABLET PO (09:06)
[2022-01-29] MEDS: HYDROCORTISONE/PRAMOXINE 2.5% 30 GM CREAM 1 APPLIC RECTAL (09:06)
[2022-01-29] MEDS: levETIRAcetam 500 MG TABLET 1000 MG PO ×2 (09:06→20:42)
[2022-01-29] MEDS: LACTULOSE 20 GM/30 ML UDC PO (09:06)
[2022-01-29] MEDS: SPIRONOLACTONE 50 MG TABLET 100 MG PO ×2 (09:06→16:32)
[2022-01-29] MEDS: busPIRone HCL 5 MG TABLET PO ×2 (09:06→20:42)
[2022-01-29] MEDS: THIAMINE HCL 200 MG/2 ML VIAL 100 MG IV PUSH (09:07)
[2022-01-29] MEDS: FUROSEMIDE INJ 40 MG/4 ML VIAL IV PUSH ×3 (09:07→20:42)
[2022-01-29] MEDS: ALPRAZolam (*CRX) 0.25 MG TABLET PO ×2 (09:12→17:58)
--- NOTE | 2022-01-29 09:17 | PM.IMPN ---
Progress Note: A&P Assessment and Plan (1) Alcoholic cirrhosis of liver with ascites: Code(s): K70.31 - Alcoholic cirrhosis of liver with ascites Status: Acute Assessment and Plan: Status post paracentesis on January 26, Gram stain and cultures negative for infection Abdomen pelvis CT from January 24 showed small left pleural effusion, cirrhosis with portal hypertension and possible liver lesions, recommended outpatient MRI of the liver, also noted moderate ascites with some anasarca Severe, end-stage liver disease suspected due to portal HTN, recurrent ascites, elevated bilirubin, elevated INR, rectal varices suspected, MELD score of 30, Child-Solorzano score of 12, class C Vitamin K, FFP given yesterday, INR unchanged, will give another dose of vitamin K and FFP today (2) Thrombosed hemorrhoids: Code(s): K64.5 - Perianal venous thrombosis Status: Acute Assessment and Plan: Appreciate general surgery consultation, status post transfusion due to bleeding likely from hemorrhoids, monitor (3) Hyponatremia: Code(s): E87.1 - Hypo-osmolality and hyponatremia Status: Acute Assessment and Plan: Improved to 133, up from 129 a few days ago, monitor (4) Hyperbilirubinemia: Code(s): E80.6 - Other disorders of bilirubin metabolism Status: Acute Assessment and Plan: Increased from 10-12, monitor (5) Coagulopathy: Code(s): D68.9 - Coagulation defect, unspecified Status: Acute Assessment and Plan: INR unchanged, repeat vitamin K and FFP pending (6) Thrombocytopenia: Code(s): D69.6 - Thrombocytopenia, unspecified Status: Acute Assessment and Plan: Platelets stable between 100-120, monitor (7) Acute blood loss anemia: Code(s): D62 - Acute posthemorrhagic anemia Status: Acute Assessment and Plan: Secondary to hemorrhoids, appreciate surgery consultation, monitor (8) Hypoxia: Code(s): R09.02 - Hypoxemia Status: Acute Assessment and Plan: Continue Aldactone 100 mg twice daily, increase Lasix to 40 mg IV twice daily, increase Coreg to 6.25 mg twice daily, heart rate still around 100, goal of less than 70 due to significant varices from portal hypertension Plan DVT prophylaxis with SCDs GI prophylaxis not indicated Code status full code Subjective Date/time seen: 01/29/22 09:17 Interval history: No overnight events noted. No chest pain or shortness of breath. No nausea, vomiting or diarrhea. No fevers or chills. Patient states he feels better than yesterday. Denies abdominal pain. Review of Systems Review of Systems: 12 point review of systems was assessed and was negative except as noted in the HPI Exam Narrative: General: No acute distress, alert and oriented per baseline HEENT: Atraumatic, normocephalic, mucous membranes moist CV: Tachycardic, S1, S2 Lungs: Tachypneic with some crackles noted at bases, somewhat diminished throughout Abdomen: Distended, somewhat tender to palpation Extremities: Normal to inspection Skin: No rashes noted, no lesions or wounds seen Psych: Euthymic, normal affect Objective Data Vital Signs Vital Signs: Vital Signs - 24 hr 01/28/22 09:55 01/28/22 10:06 01/28/22 12:00 Temperature Pulse Rate 102 H 109 H Respiratory Rate 18 18 Blood Pressure Pulse Oximetry 95 Oxygen Delivery Nasal Cannula Oxygen Flow Rate 6 01/28/22 12:00 01/28/22 10:00 01/28/22 12:00 Temperature 98.1 F Pulse Rate 112 H 108 H 113 H Respiratory Rate 24 H Blood Pressure 125/61 Pulse Oximetry 98 Oxygen Delivery Oxygen Flow Rate 01/28/22 14:00 01/28/22 14:53 01/28/22 16:00 Temperature 97.9 F Pulse Rate 122 H 113 H 114 H Respiratory Rate 116 H Blood Pressure 125/72 Pulse Oximetry 98 Oxygen Delivery Oxygen Flow Rate 01/28/22 16:00 01/28/22 16:00 01/28/22 17:47 Temperature 97.6 F Pulse Rate 1
[2022-01-29] MEDS: FOLIC ACID 1 MG/0.2 ML INJ IV PUSH (09:47)
[2022-01-29] MEDS: carvediloL 3.125 MG TABLET PO ×2 (09:47→12:43)
[2022-01-29 10:26] LABS: Albumin Peritoneal Fluid 0.3 g/dL
[2022-01-29] MEDS: PHYTONADIONE 2.5 MG TAB PO (12:42)
--- NOTE | 2022-01-29 13:41 | PCNSR ---
On 01/29/22, the student, Gurjit Sanchez, provided care and [facility]. I have reviewed the student's documentation and agree with the findings.
[2022-01-29] MEDS: SODIUM CHLORIDE 0.9% IV 250 ML 30 ML IV CONT (13:53)
[2022-01-29] MEDS: TUBING, BLOOD PLUM PUMP TUBING 1 EACH XX (13:53)
[2022-01-29 13:58] LABS: INR 2.4
[2022-01-29] MEDS: HYDROCORTISONE/PRAMOX 1% FOAM 10 GM CAN 1 APPLIC RECTAL (16:32)
[2022-01-29 19:08] LABS: Alveolar/Arterial O2 Gradient 124.1 mmHg; Device NASAL CANNULA; Fractional Inspired Oxygen 32 %; HCO3 ABG 27.8 mEq/l (22.0-26.0); Modified Allen's Test Pass; Oxygen Content ABG 11.4 %vol (16.0-22.0); Oxygen Saturation ABG 92.4 % (95.0-100.0); Oxyhemoglobin 88.5 % THb (90.0-100.0); PCO2 ABG 38.3 mmHg (35.0-45.0); PO2 ABG 59.3 mmHg (80.0-100.0); PO2 FiO2 Ratio Arterial Blood 1.85 %; Site Drawn RIGHT RADIAL; Total Hemoglobin 9.1 g/dL (12.0-18.0); pH ABG 7.478 (7.350-7.450)
[2022-01-29 20:23] LABS: Alpha Fetoprotein Tumor Marker 2.8 ng/mL (<6.1)
[2022-01-29] MEDS: carvediloL 6.25 MG TABLET PO (20:42)
[2022-01-29] MEDS: hydrOXYzine HCL 25 MG TABLET PO (20:42)
[2022-01-29] MEDS: traZODone HCL 50 MG TABLET PO (20:42)
[2022-01-29] MEDS: GABAPENTIN 300 MG CAPSULE PO (20:42)
[2022-01-29] MEDS: TEMAZEPAM (*CRX) 7.5 MG CAPSULE PO (21:10)
[2022-01-29] MEDS: IPRATROPIUM BR 0.02% INH SOLN 0.5 MG/2.5 ML VIAL INHALATION (22:22)
[2022-01-29] MEDS: ALBUTEROL SULFATE NEB 2.5 MG/3 ML INH INHALATION (22:22)
[2022-01-29] MEDS: LORazepam INJ (*CRX) 2 MG/ML VIAL 0.5 MG IV PUSH (23:07)
[2022-01-30] VITALS (23 sets, daily range): BP systolic 98–122; BP diastolic 54–71; PULSE 80–103; RESP 13–26; TEMP 36.3–37.1; O2SAT 75–100
[2022-01-30] MEDS: CENTRAL LINE FLUSH 10 ML IV PUSH ×4 (00:40→22:22)
[2022-01-30 04:06] LABS: Alveolar/Arterial O2 Gradient 585.8 mmHg; Base Excess ABG 2.8 mEq/l (+/-2.0); Carboxyhemoglobin 0.5 % THb (0-2.0); Device NASAL CANNULA; Fractional Inspired Oxygen 100 %; HCO3 ABG 27.9 mEq/l (22.0-26.0); Methemoglobin ABG 0.3 %THb (0-1.5); Modified Allen's Test Pass; PCO2 ABG 45.4 mmHg (35.0-45.0); PO2 ABG 81.8 mmHg (80.0-100.0); PO2 FiO2 Ratio Arterial Blood 0.82 %; Reduced Hemoglobin 5.2 %THb (0-5.0); Site Drawn RIGHT RADIAL; pH ABG 7.406 (7.350-7.450)
[2022-01-30] MEDS: FUROSEMIDE INJ 40 MG/4 ML VIAL 80 MG IV PUSH (04:14)
--- NOTE | 2022-01-30 04:29 | PC.NURSE ---
ALBUMIN GIVEN AROUND MIDNIGHT. NOT LONG AFTER PATIENT C/O INCREASED SOB. LAURA GIRON EQUIPMENT ENGINEERING TECHNICIAN AWARE. LASIX AND ATIVAN GIVEN TO PATIENT FOR INCREASED ANXIETY AND FOR PATIENTS CONTINUED EFFORTS TO REMOVE TO REMOVE O2. PATIENT HAD DECREASED EFFORT WITH BREATHING AND ANXIETY FOR A FEW HOURS. PATIENT GOT UP TO BEDSIDE COMMODE AND REMOVED O2 WHILE ON THERE. PATIENTS O2 SAT'S DECREASED INTO THE 70'S. PATIENT WAS INSTRUCTED TO KEEP O2 ON FOR HIS BENEFIT. PATIENT WAS NOT RECOVERING THIS TIME. INCREASED TO 15 L NON-REBREATHER. DR INIGUEZ WAS MADE AWARE AND INSTRUCTED TO GIVE PATIENT 80 MG IV LASIX X1. ABG'S AND CHEST XRAY DONE. PATIENT THEN PLACED ON CPAP. WAITING TO SEE IF PATIENT RESPONDS TO CPAP. POSSIBLE INTUBATION IF PATIENT DOES NOT RESPOND. CALLED JANICE (SPOUSE) AT 0422. NO ANSWER, LEFT MESSAGE FOR HER TO CALL FLOOR.
[2022-01-30 05:22] LABS: Basophils Absolute Auto 0.1 K/mm3 (0.0-0.1); Basophils Percent Auto 1.4 % (0.2-1.2); Eosinophils Absolute Auto 0.5 K/mm3 (0-0.3); Eosinophils Percent Auto 7.5 % (0-4.4); Hemoglobin 7.7 g/dL (14.0-18.0); Immature Granulocyte Absolute 0.03 K/mm3 (0.00-0.031); Immature Granulocyte Percent A 0.5 % (0-0.5); Lymphocytes Absolute Auto 1.28 K/mm3 (0.9-3.2); Lymphocytes Percent Auto 19.5 % (18.3-44.2); Mean Corpuscular HGB Conc 30.8 g/dl (32-36); Mean Corpuscular Hemoglobin 24.7 pg (26-34); Mean Corpuscular Volume 80.1 fl (80-100); Monocytes Absolute Auto 0.6 K/mm3 (0.1-0.6); Neutrophils Absolute Auto 4.1 K/mm3 (1.3-6.7); Neutrophils Percent Auto 62.1 % (45.5-73.1); Platelet Count Result 100 k/mm3 (150-375); Red Blood Count 3.12 M/mm3 (4.6-6.20); Red Cell Distribution Width 29.4 % (11.5-14.5); White Blood Count 6.6 K/mm3 (4.5-10.0)
[2022-01-30 05:30] LABS: Alanine Aminotransferase 15 U/L (6-50); Albumin Level 4.6 g/dL (3.5-5.1); Alkaline Phosphatase 64 U/L (38-126); Anion Gap 14 mmol/L (8-16); Aspartate Amino Transferase 41 U/L (17-59); Blood Urea Nitrogen 16 mg/dL (9-20); Calcium 9.1 mg/dL (8.4-10.2); Carbon Dioxide 29 mmol/L (22-30); Chloride 96 mmol/L (98-107); Estimated CRCL calculation 97 ml/min; Estimated Glomerular Filt Rate > 60; Glucose 101 mg/dL (65-110); Magnesium 1.5 mg/dL (1.6-2.3); Sodium 139 mmol/L (137-145)
--- NOTE | 2022-01-30 05:54 | PC.NURSE ---
MONITORED THE CHARTING AND MEDICATION DISPENSING FOR THIS PATIENT DONE BY ISAC BENAVIDEZ RN-LICENSE PENDING AND I AGREE WITH THE CHARTING.
--- NOTE | 2022-01-30 06:05 | PC.NURSE ---
SPOKE TO PATIENT'S SPOUSE ABOUT THE CHANGE IN THE PATIENT'S CONDITION AND UPDATED HER ON WHAT COULD LYE AHEAD.
[2022-01-30 06:34] LABS: Platelet Estimate Decreased (Adequate)
[2022-01-30 06:35] LABS: Anisocytosis 1+ (NORMAL); Hypochromasia 1+ (NORMAL); Ovalocytes 1+ (NORMAL); Schistocytes None Seen (NORMAL); Target Cells 1+ (NORMAL)
--- NOTE | 2022-01-30 06:35 | P.PNCROSS_ITS ---
Event Note Event Note Event Note: Nursing staff called to notify me that the patient had had rapidly increasing oxygen requirement after midnight. When I evaluated the patient around 03:30. Patient was tachypneic with labored respirations. Just prior to my arrival the patient had been on 10 L high-flow nasal cannula up from prior value of 3 L. His oxygen saturations were 80%. The patient had evidently gotten up in went to the bedside commode and removed his oxygen. Despite being on oxygen for several minutes and increasing the oxygen expect initially the patient was still remaining hypoxic. Subsequently the and went to bedside and evaluated the patient. 80 mg of IV Lasix was ordered and administered. The patient did not have a significant increase in urine output. He was demonstrating marked anasarca. On exam he was markedly jaundice with pallor and was diaphoretic. And lung exam demonstrated diffuse crackles bilaterally with accessory muscle use. The patient was placed on BiPAP initially but was pulling large tidal volumes on settings of 14/8 although oxygenation did improved to 98% with 50% FiO2. BiPAP was alarming continuously. I stated the bedside and monitor the patient. And then switch the patient to CPAP of 8 the patient looks much more comfortable from a respiratory standpoint on CPAP. Oxygen saturation had improved to 98%. Respiratory rate had come down to 13. Assessment: 1. acute hypoxic respiratory failure--plan continue CPAP and diuretics. Albumin has been discontinued due to volume overload. Stat labs were ordered and reviewed 2. Hypokalemia--40 mEq potassium chloride rider has been ordered 3. Hypomagnesemia--4 g magnesium sulfate rider has been ordered. 35 minutes spent in critical care activities Due to a high probability of clinically significant, life threatening deterioration, the patient required my highest level of preparedness to inter vene emergently and I personally spent this critical care time directly and personally managing the patient. This critical care time included obtaining a history; examining the patient; pulse oximetry; ordering and review of studies; arranging urgent treatment with development of a management plan; evaluation of patient's response to treatment; frequent reassessment; and discussions with other providers. It was exclusive of separately billable procedures and treating other patients and teaching time. Please see Assessment and Plan section and the rest of the note for further information on patient assessment and treatment.
[2022-01-30] MEDS: POTASSIUM CHLORIDE 20 MEQ PACKET (FOR LIQUID) 40 MEQ PO (08:02)
[2022-01-30] MEDS: LACTULOSE 20 GM/30 ML UDC PO (08:11)
[2022-01-30] MEDS: busPIRone HCL 5 MG TABLET PO ×2 (08:11→22:21)
[2022-01-30] MEDS: PANTOPRAZOLE 40 MG TABLET PO (08:12)
[2022-01-30] MEDS: levETIRAcetam 500 MG TABLET 1000 MG PO ×2 (08:13→22:21)
[2022-01-30] MEDS: HYDROCORTISONE/PRAMOXINE 2.5% 30 GM CREAM 1 APPLIC RECTAL (08:13)
[2022-01-30] MEDS: SIMETHICONE 80 MG TAB.CHEW PO ×4 (08:14→22:22)
[2022-01-30] MEDS: SPIRONOLACTONE 50 MG TABLET 100 MG PO ×2 (08:14→16:41)
[2022-01-30] MEDS: THIAMINE HCL 200 MG/2 ML VIAL 100 MG IV PUSH (08:15)
[2022-01-30] MEDS: MAGNESIUM SULF 4 GM/WATER100ML 4 GM/100 ML BAG IVPB (08:16)
[2022-01-30] MEDS: carvediloL 6.25 MG TABLET PO (08:18)
--- NOTE | 2022-01-30 08:38 | PM.IMPN ---
Progress Note: A&P Assessment and Plan (1) Alcoholic cirrhosis of liver with ascites: Code(s): K70.31 - Alcoholic cirrhosis of liver with ascites Status: Acute Assessment and Plan: Status post paracentesis on January 26, Gram stain and cultures negative for infection Abdomen pelvis CT from January 24 showed small left pleural effusion, cirrhosis with portal hypertension and possible liver lesions, recommended outpatient MRI of the liver, also noted moderate ascites with some anasarca Severe, end-stage liver disease suspected due to portal HTN, recurrent ascites, elevated bilirubin, elevated INR, rectal varices suspected, MELD score of 30, Child-Solorzano score of 12, class C will check repeat abdominal ultrasound for possible paracentesis today, INR continues to rise despite 2 days of FFP and vitamin K, defer further management of this decompensated end-stage liver disease to GI, may need transfer to tertiary care center for higher level of care (2) Thrombosed hemorrhoids: Code(s): K64.5 - Perianal venous thrombosis Status: Acute Assessment and Plan: Appreciate general surgery consultation, status post transfusion due to bleeding likely from hemorrhoids, monitor (3) Hyponatremia: Code(s): E87.1 - Hypo-osmolality and hyponatremia Status: Acute Assessment and Plan: resolved at 139, monitor (4) Hyperbilirubinemia: Code(s): E80.6 - Other disorders of bilirubin metabolism Status: Acute Assessment and Plan: stable at 11 (5) Coagulopathy: Code(s): D68.9 - Coagulation defect, unspecified Status: Acute Assessment and Plan: INR continues to creep up despite FFP and vitamin K for 2 days, will defer further management to GI at this time this may not be reversible nor fixable at this stage of his liver disease (6) Thrombocytopenia: Code(s): D69.6 - Thrombocytopenia, unspecified Status: Acute Assessment and Plan: Platelets stable between 100-120, monitor Will start prednisone 40 mg daily (7) Acute blood loss anemia: Code(s): D62 - Acute posthemorrhagic anemia Status: Acute Assessment and Plan: Secondary to hemorrhoids, appreciate surgery consultation, monitor (8) Hypoxia: Code(s): R09.02 - Hypoxemia Status: Acute Assessment and Plan: suspect volume overload from end-stage liver disease versus TACO/TRALI (more likely TACO with fluid status), no signs of pneumonia at this time, continue supplemental oxygen and diuresis as below Continue Aldactone 100 mg twice daily, will change Lasix to Bumex 2 mg IV twice daily due to poor urine output despite increasing diuretic dosing, will discontinue Coreg as suspect this has little benefit at this time BIPAP support, may need intubation Plan Called and spoke with [facility], [facility] and [facility] for possible placement, no beds available at this time DVT prophylaxis with SCDs GI prophylaxis with PPI Code status full code Subjective Date/time seen: 01/30/22 08:38 Interval history: Patient with worsening shortness of breath today. No fevers or chills. No nausea, vomiting or diarrhea. No chest pain. No headaches or vision changes. Patient denies cough, runny nose or sore throat. Review of Systems Review of Systems: 12 point review of systems was assessed and was negative except as noted in the HPI Exam Narrative: General: Appears weak and in respiratory distress, was more comfortable when placed on BiPAP HEENT: Atraumatic, normocephalic, mucous membranes moist CV: Tachycardic, S1, S2 Lungs: Lung sounds diminished throughout, scattered crackles noted Abdomen: Nontender to palpation today, somewhat distended Extremities: Normal to inspection Skin: No rashes noted, no lesions or wounds seen Psych: Euthymic, normal affect Objective Data Vital Signs Vital Signs: Vital Signs - 24 hr 01/29/22 10:00 01/29/22 12:00 01/29/22 1
[2022-01-30 11:06] LABS: Amylase Peritoneal Fluid <10 U/L
[2022-01-30] MEDS: BUMETANIDE INJ 1 MG/4 ML VIAL 2 MG IV PUSH ×2 (12:01→15:05)
[2022-01-30] MEDS: FOLIC ACID 1 MG/0.2 ML INJ IV PUSH (12:01)
--- NOTE | 2022-01-30 12:15 | WPDGIPROGNO ---
Progress Note: A&P Assessment and Plan (1) Hypoxia: Code(s): R09.02 - Hypoxemia Status: Acute Assessment and Plan: Patient became acutely short of breath last evening. Chest x-ray reveals interstitial lung disease versus pneumonia. Would recommend Pulmonary consult. Is unlikely this is related to ascites as his abdominal stents distention much less than at presentation. He has been receiving intravenous albumin and plasma suggesting potential volume overload. These will be held at this time. (2) Hyperbilirubinemia: Code(s): E80.6 - Other disorders of bilirubin metabolism Status: Acute (3) Alcoholic cirrhosis of liver with ascites: Code(s): K70.31 - Alcoholic cirrhosis of liver with ascites Status: Acute Assessment and Plan: Patient with severe alcoholic cirrhosis of the liver with ascites. Elevated bilirubin identified on this basis. Continue supportive care for now. (4) Anemia: Code(s): D64.9 - Anemia, unspecified Status: Acute Assessment and Plan: Chronic anemia has stabilized. Worsening anemia presentation likely from bleeding attributed to hemorrhoids. (5) Ascites: Code(s): R18.8 - Other ascites Status: Acute Assessment and Plan: Ascites is improved since initial paracentesis. Diuresis has been started should be monitored. Anticipate weight loss of only several lb a day. Subjective Date/time seen: 01/30/22 12:15 Patient very short of breath this morning apparently got up to use the restroom last evening became short of breath in improved only after CPAP mask placed. Has had no significant recent bleeding from rectal hemorrhoids. His abdomen has remained relatively soft and flat previously tolerating liquid diet. Review of Systems Review of Systems: Review of systems noncontributory. Exam Narrative: Physical exam reveals patient to be alert but somewhat short of breath requires CPAP mask for breathing. HEENT exam reveals icterus. Lungs are clear. Heart without murmur. Abdomen bowel sounds are present abdomen is relatively soft minimal shifting dullness are present. Objective Data Vital Signs Vital Signs: Vital Signs - 24 hr 01/29/22 12:50 01/29/22 13:56 01/29/22 14:11 Temperature 98.4 F 97.7 F 98 F Pulse Rate 96 94 97 Respiratory Rate 22 H 16 16 Blood Pressure 126/72 115/73 113/62 Pulse Oximetry 95 100 92 Oxygen Delivery Oxygen Flow Rate 01/29/22 14:00 01/29/22 16:04 01/29/22 16:00 Temperature 97.8 F Pulse Rate 96 98 100 Respiratory Rate 20 Blood Pressure 121/73 Pulse Oximetry 95 Oxygen Delivery Oxygen Flow Rate 01/29/22 16:00 01/29/22 18:00 01/29/22 20:20 Temperature 98.5 F Pulse Rate 100 98 92 Respiratory Rate 20 17 Blood Pressure 120/67 Pulse Oximetry 91 99 Oxygen Delivery Nasal Cannula Oxygen Flow Rate 3 01/29/22 20:42 01/29/22 22:20 01/29/22 22:25 Temperature Pulse Rate 100 96 96 Respiratory Rate 18 Blood Pressure Pulse Oximetry 95 Oxygen Delivery Nasal Cannula Oxygen Flow Rate 3 01/29/22 22:28 01/29/22 20:00 01/29/22 20:00 Temperature Pulse Rate 98 95 Respiratory Rate 20 Blood Pressure Pulse Oximetry 90 Oxygen Delivery Nasal Cannula Oxygen Flow Rate 3 01/29/22 22:00 01/29/22 23:50 01/30/22 00:00 Temperature 98.6 F Pulse Rate 103 H 92 93 Respiratory Rate 13 Blood Pressure 117/72 Pulse Oximetry 97 Oxygen Delivery Oxygen Flow Rate 01/30/22 00:00 01/30/22 02:00 01/30/22 04:38 Temperature Pulse Rate 93 97 Respiratory Rate 26 H Blood Pressure Pulse Oximetry 97 98 Oxygen Delivery Nasal Cannula CPAP Oxygen Flow Rate 3 01/30/22 04:40 01/30/22 04:00 01/30/22 04:00 Temperature 97.6 F Pulse Rate 98 99 Respiratory Rate 13 Blood Pressure 122/68 Pulse Oximetry 97 Oxygen Delivery CPAP Oxygen Flow Rate 01/30/22 05:38 01/30/22 03:45
--- NOTE | 2022-01-30 14:32 | PM.CNPUL ---
Assessment and Plan Assessment and plan (1) Hypoxia: Code(s): R09.02 - Hypoxemia Status: Acute Assessment and Plan: Patient with a history of childhood asthma and history of spontaneous pneumothorax not currently on any respiratory medicines. patient presented with a normal chest x-ray and room air saturations will 100% on 11/24/2021. COVID RT PCR study was negative. Patient received 2 units of blood on 11/25 and His chest x-ray on now down showed diffuse interstitial alveolar infiltrates. He has received a unit of FFP on 01/28 and 01/29. echocardiogram on 01/26 showed LVEF greater than 70, normal RV and RA size, PASP 25. Etiology of patient's hypoxemic respiratory failure include transfusion related acute lung injury, transfusion associated cardiac overload, ARDS, and or aspiration. Agree with transfer to intensive care unit for closer monitoring. Agree with as aggressive diuresis as tolerated by his cardiac and renal systems. Although patient is afebrile and without any white blood cell count he does have some production of green and yellow phlegm and he is deteriorating. I would cover the patient for possible aspiration pneumonia with vancomycin and imipenem. COVID RT PCR study was negative on admission I will send influenza swab. I have ordered blood cultures and a sputum culture Regarding his hypoxemia the patient is currently on CPAP 8 50% with saturations 96%. There is no evidence of hypercarbic respiratory failure but I would switch the patient over to BiPAP for comfort. I spoken with the science consultant and he will place the patient on BiPAP. Discussed with Drs. Abraham and Emiliana will follow with you. History of Present Illness History of Present Illness Consult date: 01/30/22 Chief complaint: hypokalemia, anemia, liver failure Narrative: 01/30/2022: This is a new pulmonary consult for hypoxemic respiratory failure. 36-year-old male with a history of childhood asthma, currently on no medications, spontaneous pneumothorax 2012 status post chest tube not requiring an operation with no recurrence and alcoholic cirrhosis diagnosed in July of 2021. Patient smokes approximately half a pack a day since age 19 for total of 8.5 pack years. He denied any respiratory issues recently and denied any respiratory limitations in his activities of daily living. Patient presented to [facility] on 01/24/2022 with 7 days of weakness, yellow skin, yellow eyes and blood in his stool. Patient was found to have a hemoglobin of 5.8, creatinine of 1.7, potassium less than 2, INR 2.0 chest x-ray with left basilar atelectasis and small left pleural effusion and a CT scan of the abdomen that showed a small left pleural effusion with associated minimal atelectasis and no infiltrates in the lower lung stahl. His ammonia was 72 is BNP was 2120 his lipase was 230 his alk phos was 158, his AST was 58 his ALT was 26 his albumin was 2.5 and his bilirubin was 7.8. His COVID RT PCR study was negative. His saturations on room air were 100%. Patient was treated with ceftriaxone. patient received 2 units of packed red blood cells. On 01/25 He remained on room air, chest x-ray showed mild diffuse interstitial alveolar infiltrates, he had a fever, he had paracentesis of 2.42 L. On 01/26 the patient had a normal EGD, chest x-ray with worsening interstitial infiltrates, echo with LVEF of 70%, normal RV, RA, PASP was 25, Lasix 10 given x1 and Lasix 20 given x1. On 01/27 the patient had a colonoscopy with Multiple large uncomplicated external hemorrhoids with stigmata of bleeding and a few medium-size uncomplicated internal hemorrhoids that were not actively bleeding. 01/28: chest x-ray with worsening diffuse interstitial alveolar infiltrates with consolidation of the left lower lobe. ABG was 7.49/38/60 on 3 L nasal cannula. Peak bilirubin was 12.3. Patient was given FFP. patient required 6 L nasal cannula 01/29 p
--- NOTE | 2022-01-30 15:51 | PM.PNGS ---
Progress Note: A&P Assessment and Plan (1) Bleeding hemorrhoids: Code(s): K64.9 - Unspecified hemorrhoids Status: Acute Assessment and Plan: External hemorrhoids noted on colonoscopy with stigmata of bleeding. No active bleeding for last 48-72 hours. Small amount of drainage overnight from the hemorrhoids, which would not account for any significant drop in hemoglobin. ( hemoglobin basically stable ) Will continue to treat conservatively for now and reserve any surgical intervention if he has active bleeding and his coags have been corrected as best possible. Continue alternating the hydrocortisone/pramoxin cream and foam every 6 hours for relief. Patient agreed to try the cream instead of refusing. Could also consider an oral analgesic to help with rectal pain while they are inflamed. Continue sitz baths, unless respiratory status inhibits getting to the Sitz bath (2) GI bleed: Code(s): K92.2 - Gastrointestinal hemorrhage, unspecified Status: Acute Assessment and Plan: S/p colonoscopy and EGD. EGD negative. Colonoscopy only with findings of internal and external hemorrhoids with stigmata of bleeding on the external hemorrhoids. See plan above. (3) Anemia: Code(s): D64.9 - Anemia, unspecified Status: Acute Assessment and Plan: Received a total of 6 units PRBCs since admission (2 units on01/27). Hgb to 7.7 today. Continue to monitor daily H/H. Transfuse as needed. (4) Cirrhosis: Code(s): K74.60 - Unspecified cirrhosis of liver Status: Chronic Assessment and Plan: Advanced alcoholic liver cirrhosis with evidence of cirrhosis and portal hypertension on imaging. He has ascites and underwent a paracentesis 01/26/22 yielding over 2 liters of fluid. Coags rechecked this morning and are slightly higher. FFP and vitamin K ordered by Hospitalist today. Repeat tomorrow. (5) Ascites: Code(s): R18.8 - Other ascites Status: Acute Assessment and Plan: S/p paracentesis with over 2 liters of fluid removed. (6) Alcohol dependence: Code(s): F10.20 - Alcohol dependence, uncomplicated Status: Acute Assessment and Plan: Encouraged strict alcohol avoidance for this patient moving forward. (7) Acute renal failure: Code(s): N17.9 - Acute kidney failure, unspecified Status: Acute (8) Tobacco dependence: Code(s): F17.200 - Nicotine dependence, unspecified, uncomplicated Status: Acute (9) Hyponatremia: Code(s): E87.1 - Hypo-osmolality and hyponatremia Status: Acute Assessment and Plan: improved, in normal range today. (10) Hypokalemia: Code(s): E87.6 - Hypokalemia Status: Acute Assessment and Plan: still low at 3.0 today Subjective Subjective Date/Time Seen: 01/30/22 15:51 Patient reports: no new complaints Interval history: States hemorrhoids are little less painful today. Had episode of shortness of breath and breathing problems last night. Pulmonary consult noted. Review of Systems Review of Systems: All systems reviewed & are unremarkable except as noted in HPI and below Constitutional: Constitutional: Reports as per HPI, Denies chills and Denies fever(s) Cardiovascular: Cardiovascular: Denies chest pain and Denies dyspnea Respiratory: Respiratory: Reports as per HPI and Reports dyspnea ( Now on CPAP.) Gastrointestinal: Gastrointestinal: Reports as per HPI and Denies bloating Musculoskeletal: Musculoskeletal: Reports no additional musculoskeletal complaints Neurologic: Denies memory loss Psychiatric: Psychiatric: Denies anxiety and Denies memory loss Exam Const: General: no acute distress, awake and ill appearing acutely Nutritional Appearance: average body habitus Eyes: Sclera: scleral abnormality (icterus) GI: Rectal Exam: other (ROBERTO digital rectal exam due to rectal pain/tenderness) Other: External hemorrhoids unc
[2022-01-30 15:52] LABS: Chloride Rand Ur 29 mmol/L (32-290); Chloride/Creatinine Rand Ur 25 (23-275); Creatinine Random Urine 114 mg/dL (20-320)
[2022-01-30] MEDS: BUMETANIDE INJ 2.5 MG/10 ML VIAL 2 MG IV PUSH (16:40)
[2022-01-30] MEDS: hydrOXYzine HCL 25 MG TABLET PO (22:21)
[2022-01-30] MEDS: GABAPENTIN 300 MG CAPSULE PO (22:21)
[2022-01-30] MEDS: traZODone HCL 50 MG TABLET PO (22:33)
[2022-01-30] MEDS: TEMAZEPAM (*CRX) 7.5 MG CAPSULE PO (22:33)
[2022-01-31] VITALS (18 sets, daily range): BP systolic 104–127; BP diastolic 55–68; PULSE 80–98; RESP 10–28; TEMP 36.4–37.1; O2SAT 96–100
[2022-01-31] MEDS: ALPRAZolam (*CRX) 0.25 MG TABLET PO ×2 (00:11→10:29)
[2022-01-31] MEDS: CENTRAL LINE FLUSH 10 ML IV PUSH ×3 (06:42→21:02)
[2022-01-31 07:03] LABS: Hematocrit 25.2 % (42.0-52.0); Hemoglobin 7.8 g/dL (14.0-18.0); Immature Platelet Fraction Pct 2.9 % (0.9-11.2); Mean Corpuscular Hemoglobin 24.9 pg (26-34); Mean Corpuscular Volume 80.5 fl (80-100); Mean Platelet Volume 9.8 fl (7.4-10.4); Platelet Count Result 102 k/mm3 (150-375); Red Blood Count 3.13 M/mm3 (4.6-6.20); Red Cell Distribution Width 29.7 % (11.5-14.5); White Blood Count 9.4 K/mm3 (4.5-10.0)
[2022-01-31 07:28] LABS: Alanine Aminotransferase 16 U/L (6-50); Albumin Level 4.1 g/dL (3.5-5.1); Alkaline Phosphatase 60 U/L (38-126); Anion Gap 15 mmol/L (8-16); Aspartate Amino Transferase 52 U/L (17-59); Bilirubin,Total 10.2 mg/dL (0.2-1.3); Blood Urea Nitrogen 23 mg/dL (9-20); Calcium 8.8 mg/dL (8.4-10.2); Carbon Dioxide 29 mmol/L (22-30); Chloride 95 mmol/L (98-107); Estimated CRCL calculation 97 ml/min; Estimated Glomerular Filt Rate > 60; Glucose 85 mg/dL (65-110); Magnesium 1.7 mg/dL (1.6-2.3); Potassium 3.3 mmol/L (3.4-5.0); Sodium 139 mmol/L (137-145)
[2022-01-31 08:51] LABS: INR 2.2; Partial Thromboplastin Time 38.9 SECONDS (22.3-36.8); Prothrombin Time 23.4 Seconds (11.1-14.7)
[2022-01-31 09:07] LABS: Influenza Control Positive
--- NOTE | 2022-01-31 09:32 | PM.PNPUL ---
Progress Note: A&P Assessment and Plan (1) Hypoxia: Code(s): R09.02 - Hypoxemia Status: Acute Assessment and Plan: Patient with a history of childhood asthma and history of spontaneous pneumothorax not currently on any respiratory medicines. patient presented with a normal chest x-ray and room air saturations will 100% on 11/24/2021. COVID RT PCR study was negative. Patient received 2 units of blood on 11/25 and His chest x-ray on now down showed diffuse interstitial alveolar infiltrates. He has received a unit of FFP on 01/28 and 01/29. echocardiogram on 01/26 showed LVEF greater than 70, normal RV and RA size, PASP 25. Etiology of patient's hypoxemic respiratory failure include transfusion related acute lung injury, transfusion associated cardiac overload, ARDS, and or aspiration. 01/30 Agree with transfer to intensive care unit for closer monitoring. Agree with as aggressive diuresis as tolerated by his cardiac and renal systems. Although patient is afebrile and without any white blood cell count he does have some production of green and yellow phlegm and he is deteriorating. I would cover the patient for possible aspiration pneumonia with vancomycin and imipenem. COVID RT PCR study was negative on admission I will send influenza swab. I have ordered blood cultures and a sputum culture Regarding his hypoxemia the patient is currently on CPAP 8 50% with saturations 96%. There is no evidence of hypercarbic respiratory failure but I would switch the patient over to BiPAP for comfort. I spoken with the technical support analyst and he will place the patient on BiPAP. CT scan of the chest demonstrates diffuse patchy interstitial alveolar infiltrates, small pleural oral effusions. 01/31 Patient remained on BiPAP rate of 10, pressures 10/5 and 50% overnight with saturations 97% this morning. The patient tells me his breathing feels slightly better. His white blood cell count is 9.4, creatinine is 1.1, bilirubin is 10.2. Chest x-ray demonstrates diffuse interstitial alveolar infiltrates more confluent on the right. CT scan with patchy ground-glass and interstitial infiltrates. Influenza swab negative. Will repeat COVID RT PCR study. I will send urine for Legionella and pneumococcal antigen, mycoplasma IgM and a respiratory specimen for an extended respiratory pathogen panel. Continue Vanco and imipenem (day 2) and will add Levaquin for atypical coverage and additional gram-negative coverage. Patient remains on Bumex 2 mg IV t.i.d. and will check a BNP. Goal saturation 90-94%. I have spoken with respiratory therapist and will attempt to place him on 15 L high-flow nasal cannula and if this is inadequate will attempt Airvo high-flow nasal cannula. Discussed with Dr. Abraham Will follow with you. Subjective Date/time seen: 01/31/22 09:32 Interval history: 01/30/2022:? This is a new pulmonary consult for hypoxemic respiratory failure. 36-year-old male with a history of childhood asthma,? currently on no medications, spontaneous pneumothorax 2011 status post chest tube not requiring an operation with no recurrence and alcoholic cirrhosis diagnosed in July of 2021. Patient smokes approximately half a pack a day since age 19 for total of 8.5 pack years.? He denied any respiratory? issues recently and denied any respiratory limitations in his activities of daily living. Patient presented to [facility] on 01/24/2022 with 7 days of weakness, yellow skin, yellow eyes and blood in his stool.? Patient was found to have a hemoglobin of 5.8, creatinine of 1.7, potassium less than 2, INR 2.0 chest x-ray with left basilar atelectasis and small left pleural effusion and a CT scan of the abdomen that showed a small left pleural effusion with associated minimal atelectasis and no infiltrates in the lower lung stahl.? His ammonia was 72 is BNP was 2120 his lipase was 230 his alk phos was 158, his AST was 58 his ALT was
--- NOTE | 2022-01-31 09:34 | PM.IMPN ---
Progress Note: A&P Assessment and Plan (1) Alcoholic cirrhosis of liver with ascites: Code(s): K70.31 - Alcoholic cirrhosis of liver with ascites Status: Acute Assessment and Plan: Status post paracentesis on January 26, Gram stain and cultures negative for infection Abdomen pelvis CT from January 24 showed small left pleural effusion, cirrhosis with portal hypertension and possible liver lesions, recommended outpatient MRI of the liver, also noted moderate ascites with some anasarca Severe, end-stage liver disease suspected due to portal HTN, recurrent ascites, elevated bilirubin, elevated INR, rectal varices suspected, MELD score of 30, Child-Solorzano score of 12, class C Will check repeat abdominal ultrasound for possible paracentesis today, INR continues to rise despite 2 days of FFP and vitamin K, defer further management of this decompensated end-stage liver disease to GI, may need transfer to tertiary care center for higher level of care Patient placed on waiting list at [facility] and at [facility] (2) Thrombosed hemorrhoids: Code(s): K64.5 - Perianal venous thrombosis Status: Acute Assessment and Plan: Appreciate general surgery consultation, status post transfusion due to bleeding likely from hemorrhoids, monitor (3) Hyponatremia: Code(s): E87.1 - Hypo-osmolality and hyponatremia Status: Acute Assessment and Plan: Resolved (4) Hyperbilirubinemia: Code(s): E80.6 - Other disorders of bilirubin metabolism Status: Acute Assessment and Plan: Stable (5) Coagulopathy: Code(s): D68.9 - Coagulation defect, unspecified Status: Acute Assessment and Plan: INR continues to creep up despite FFP and vitamin K for 2 days, will defer further management to GI at this time This may not be reversible nor fixable at this stage of his liver disease (6) Thrombocytopenia: Code(s): D69.6 - Thrombocytopenia, unspecified Status: Acute Assessment and Plan: Platelets stable between 100-120, monitor Will start prednisone 40 mg daily (7) Acute blood loss anemia: Code(s): D62 - Acute posthemorrhagic anemia Status: Acute Assessment and Plan: Secondary to hemorrhoids, appreciate surgery consultation, monitor (8) Hypoxia: Code(s): R09.02 - Hypoxemia Status: Acute Assessment and Plan: suspect volume overload from end-stage liver disease versus TACO/TRALI (more likely TACO with fluid status), no signs of pneumonia at this time, continue supplemental oxygen and diuresis as below Continue Aldactone 100 mg twice daily, will change Lasix to Bumex 2 mg IV twice daily due to poor urine output despite increasing diuretic dosing, will discontinue Coreg as suspect this has little benefit at this time Hi-french and airvo today for comfort, BIPAP at night Plan Called and spoke with [facility], [facility] and [facility] for possible placement, no beds available at this time DVT prophylaxis with SCDs GI prophylaxis with PPI Code status full code Subjective Date/time seen: 01/31/22 09:34 Interval history: Patient states he feels a little better today than yesterday in regards to his breathing. He is very anxious. He is complaining of some chest tightness when he tries to take a deep breath. No overnight events noted. No chest pain. No nausea, vomiting or diarrhea. No fevers or chills. Review of Systems Review of Systems: 12 point review of systems was assessed and was negative except as noted in the HPI Exam Narrative: General: Appears to be uncomfortable, mild respiratory distress HEENT: Atraumatic, normocephalic, mucous membranes moist CV: Tachycardic, S1, S2 Lungs: Coarse breath sounds throughout with crackles scattered Abdomen: Nontender to palpation today, somewhat distended Extremities: Normal to inspection Skin: No rashes noted, no lesions or wounds seen Psych: Euthymic, normal affect Object
--- NOTE | 2022-01-31 09:37 | WPDGIPROGNO ---
Progress Note: A&P Assessment and Plan (1) Hypoxia: Code(s): R09.02 - Hypoxemia Status: Acute Assessment and Plan: Patient became acutely short of breath On Chest x-ray reveals interstitial lung disease versus pneumonia. Would recommend Pulmonary consult. Is unlikely this is related to ascites as his abdominal stents distention much less than at presentation. He has been receiving intravenous albumin and plasma suggesting potential volume overload. These will be held at this time. 01/31/2022 he has been switched over to BiPAP. He is breathing comfortably (2) Hyperbilirubinemia: Code(s): E80.6 - Other disorders of bilirubin metabolism Status: Acute Assessment and Plan: bilirubin actually decreased a bit to 10.2 (3) Alcoholic cirrhosis of liver with ascites: Code(s): K70.31 - Alcoholic cirrhosis of liver with ascites Status: Acute Assessment and Plan: Patient with severe alcoholic cirrhosis of the liver with ascites. Elevated bilirubin identified on this basis. Continue supportive care for now. no evidence of any deterioration in hepatic function at this time. Albumin is actually good. The 1 blood ammonia level was high and I will repeat that (4) Anemia: Code(s): D64.9 - Anemia, unspecified Status: Acute Assessment and Plan: Chronic anemia has stabilized. Worsening anemia presentation likely from bleeding attributed to hemorrhoids. (5) Ascites: Code(s): R18.8 - Other ascites Status: Acute Assessment and Plan: Ascites is improved since initial paracentesis. Diuresis has been started should be monitored. Anticipate weight loss of only several lb a day. 01/31/2022 I will order daily weights to monitor his fluid balance (6) Bleeding hemorrhoids: Code(s): K64.9 - Unspecified hemorrhoids Status: Acute Assessment and Plan: surgery has seen him regarding his hemorrhoids and have ordered conservative treatments for now. He has had no evidence of bleeding from these hemorrhoids in the last 24 hours Subjective Date/time seen: 01/31/22 09:37 The patient reports that his breathing is much better today than it had been. He is on BiPAP at present, lying flat, in no distress. He does not think that his edema is any worse or better today. Pulmonary consult was obtained yesterday. The summary was that the bed patient would benefit from BiPAP and aggressive diuresis. There Was also concern about possible pneumonia and he is being covered with antibiotics. denies abdominal pain or any other new gastrointestinal symptoms today. Objective Data Vital Signs Vital Signs: Vital Signs - 24 hr 01/30/22 11:39 01/30/22 11:49 01/30/22 15:54 Temperature 36.5 C 37.1 C Pulse Rate 85 85 90 Respiratory Rate 17 18 19 Blood Pressure 98/55 L 108/61 Pulse Oximetry 99 99 99 Oxygen Delivery CPAP Fraction of Inspired Oxygen 01/30/22 16:20 01/30/22 12:00 01/30/22 10:00 Temperature Pulse Rate 92 100 90 Respiratory Rate 18 Blood Pressure Pulse Oximetry 100 Oxygen Delivery BiPAP Fraction of Inspired Oxygen 01/30/22 16:00 01/30/22 14:00 01/30/22 20:00 Temperature 36.7 C Pulse Rate 90 87 92 Respiratory Rate 17 Blood Pressure 119/71 Pulse Oximetry 99 Oxygen Delivery Fraction of Inspired Oxygen 01/30/22 12:00 01/30/22 16:00 01/30/22 21:16 Temperature Pulse Rate 80 Respiratory Rate 19 Blood Pressure Pulse Oximetry 98 Oxygen Delivery BiPAP BiPAP BiPAP Fraction of Inspired Oxygen 01/30/22 23:35 01/31/22 02:37 01/31/22 04:00 Temperature 36.8 C 36.9 C Pulse Rate 92 86 97 Respiratory Rate 16 17 15 Blood Pressure 111/54 L 127/68 Pulse Oximetry 98 97 100 Oxygen Delivery BiPAP Fraction of Inspired Oxygen 01/30/22 20:00 01/30/22 22:00 01/31/22 00:00 Temperature Pulse Rate 92 103 H 98 Respiratory Rate Blood Pressure P
[2022-01-31 09:43] LABS: NT Pro B Type Natriuretic Pept 5590 pg/mL (5-100)
[2022-01-31 10:13] LABS: Total Cells Counted 100
[2022-01-31 10:17] LABS: Band Neutrophils Percent 6 % (0-6); Basophils Absolute Manual 0.37 K/mm3 (0.0-0.1); Basophils Percent Manual 4 % (0-1); Eosinophils Absolute Manual 0.75 K/mm3 (0.02-0.5); Eosinophils Percent Manual 8 % (0-4); Lymphocytes Absolute Manual 1.12 K/mm3 (1.1-4.5); Lymphocytes Percent Manual 12 % (18-44); Monocytes Absolute Manual 0.56 K/mm3 (0.1-0.90); Monocytes Percent Manual 6 % (3-9); Neutrophils Absolute Manual 6.58 K/mm3 (1.3-6.7); Neutrophils Percent Manual 64 % (46-73)
[2022-01-31 10:18] LABS: Hypochromasia 1+ (NORMAL); Platelet Estimate Decreased (Adequate); Poikilocytosis 1+ (NORMAL); Target Cells 1+ (NORMAL)
[2022-01-31 10:19] LABS: Anisocytosis 1+ (NORMAL); Atypical Lymphocytes Present; Microcytosis 1+ (NORMAL); Schistocytes 1+ (NORMAL); Tear Drop Cells 1+ (NORMAL)
[2022-01-31] MEDS: BUMETANIDE INJ 2.5 MG/10 ML VIAL 2 MG IV PUSH ×3 (10:20→18:00)
[2022-01-31] MEDS: predniSONE 20 MG TABLET 40 MG PO (10:21)
[2022-01-31] MEDS: SPIRONOLACTONE 50 MG TABLET 100 MG PO ×2 (10:22→18:01)
[2022-01-31] MEDS: levETIRAcetam 500 MG TABLET 1000 MG PO ×2 (10:23→20:58)
[2022-01-31] MEDS: busPIRone HCL 5 MG TABLET PO ×2 (10:23→20:57)
[2022-01-31] MEDS: LACTULOSE 20 GM/30 ML UDC PO (10:23)
[2022-01-31] MEDS: SIMETHICONE 80 MG TAB.CHEW PO ×4 (10:23→20:59)
[2022-01-31] MEDS: HYDROCORTISONE/PRAMOXINE 2.5% 30 GM CREAM 1 APPLIC RECTAL ×2 (10:24→20:59)
[2022-01-31] MEDS: PANTOPRAZOLE 40 MG TABLET PO (10:24)
[2022-01-31] MEDS: THIAMINE HCL 200 MG/2 ML VIAL 100 MG IV PUSH (10:25)
[2022-01-31] MEDS: ACETAMINOPHEN 325 MG TABLET 650 MG PO (10:30)
[2022-01-31] MEDS: FOLIC ACID 1 MG/0.2 ML INJ IV PUSH (10:32)
[2022-01-31] MEDS: HYDROmorphone HCL INJ (*CRX) 1 MG/ML SYR 0.5 MG IV PUSH ×3 (12:33→20:51)
[2022-01-31] MEDS: LORazepam INJ (*CRX) 2 MG/ML VIAL 1 MG IV PUSH ×3 (13:04→22:16)
[2022-01-31 15:02] LABS: SARS-CoV-2 RNA PCR Negative
[2022-01-31] MEDS: GABAPENTIN 300 MG CAPSULE PO (20:57)
[2022-01-31] MEDS: hydrOXYzine HCL 25 MG TABLET PO (20:58)
[2022-01-31] MEDS: traZODone HCL 50 MG TABLET PO (20:58)
[2022-02-01] VITALS: BP 114/65; PULSE 81; PULSE 84; RESP 18; TEMP 36.8; O2SAT 97; O2SAT 99
[2022-02-01 02:00] VITALS: PULSE 81
[2022-02-01 02:12] VITALS: O2SAT 95
[2022-02-01] MEDS: LORazepam INJ (*CRX) 2 MG/ML VIAL 1 MG IV PUSH (02:30)
--- NOTE | 2022-02-01 03:19 | PC.NURSE ---
Pt has been accepted at [facility] bed [address]. Report was called to DHAVAL Dykes on 02/01/22 at 0318.
[2022-02-01 04:00] VITALS: BP 116/65; PULSE 82; PULSE 83; RESP 18; TEMP 36.6; O2SAT 99
[2022-02-01] MEDS: HYDROmorphone HCL INJ (*CRX) 1 MG/ML SYR 0.5 MG IV PUSH (05:03)
--- NOTE | 2022-02-01 05:20 | PC.NURSE ---
Magdalene picked up patient for transfer and called DHAVAL Dykes with final report and pt departure at 0518.
--- NOTE | 2022-02-01 07:27 | PM.TDS ---
Transfer Discharge Sum: Prov Provider Date of admission: 01/24/22 20:24 Primary care physician: PHYSICIAN NOT ON STAFF Admitting clinician: Aly Mcgee MD Consults: 01/24/22 Consult to Physician Routine Comment: Consulting Provider: Kobe Gibbons Reason for consultation: Liver failure, +hemoccult Has provider been notified: Yes 01/25/22 Consult to Physician Routine Comment: Consulting Provider: Sherri Azevedo call specialist/MD group to consult: Nephrology Reason for consultation: Kidney failure/Hyponatremia Has provider been notified: Yes Consult to Physician Routine Comment: Left information with the exchange. Consulting Provider: Madi Hair call specialist/MD group to consult: Cardiology Reason for consultation: Eleavted trops/CHF Has provider been notified: Yes 01/27/22 Consult to Physician Routine Comment: Called office and notified them of consult Consulting Provider: John Gill call specialist/MD group to consult: surgery Reason for consultation: hemorrhoid bleeding, cirrhosis Has provider been notified: Yes 01/28/22 Consult to Dietitian Routine Reason for Consult:: In-patient nutritional evaluation Recommendations and check on patient preference for high-protein milk shakes as supplements. (has very low Prealbumin) 01/30/22 Consult to Physician Routine Comment: Spoke with and notified him of consult Consulting Provider: Madi Orosco call specialist/ group to consult: pulmonary Reason for consultation: hypoxemia Has provider been notified: Yes DS: Admitting Diagnosis Discharge Date 02/01/22 Admitting Diagnosis Rectal bleeding DS: Discharge Diagnosis Discharge Diagnosis (1) Alcoholic cirrhosis of liver with ascites: Code(s): K70.31 - Alcoholic cirrhosis of liver with ascites Status: Acute Assessment and Plan: Status post paracentesis on January 26, Gram stain and cultures negative for infection Abdomen pelvis CT from January 24 showed small left pleural effusion, cirrhosis with portal hypertension and possible liver lesions, recommended outpatient MRI of the liver, also noted moderate ascites with some anasarca Severe, end-stage liver disease suspected due to portal HTN, recurrent ascites, elevated bilirubin, elevated INR, rectal varices suspected, MELD score of 30, Child-Solorzano score of 12, class C Will check repeat abdominal ultrasound for possible paracentesis today, INR continues to rise despite 2 days of FFP and vitamin K, defer further management of this decompensated end-stage liver disease to GI, may need transfer to tertiary care center for higher level of care Patient placed on waiting list at [facility] and at [facility] (2) Thrombosed hemorrhoids: Code(s): K64.5 - Perianal venous thrombosis Status: Acute Assessment and Plan: Appreciate general surgery consultation, status post transfusion due to bleeding likely from hemorrhoids, monitor (3) Hyponatremia: Code(s): E87.1 - Hypo-osmolality and hyponatremia Status: Acute Assessment and Plan: Resolved (4) Hyperbilirubinemia: Code(s): E80.6 - Other disorders of bilirubin metabolism Status: Acute Assessment and Plan: Stable (5) Coagulopathy: Code(s): D68.9 - Coagulation defect, unspecified Status: Acute Assessment and Plan: INR continues to creep up despite FFP and vitamin K for 2 days, will defer further management to GI at this time This may not be reversible nor fixable at this stage of his liver disease (6) Thrombocytopenia: Code(s): D69.6 - Thrombocytopenia, unspecified Status: Acute Assessment and Plan: Platelets stable between 100-120, monitor Will start prednisone 40 mg daily (7) Acute blood loss anemia: Code(s): D62 - Acute posthemorrhagic anemia Status: Acute Assessment and Plan: Secondar
[2022-02-03 01:49] LABS: Pneumococcal Antigen Urine Not Detected (Not Detected)
[2022-02-03 17:51] LABS: Mycoplasma IgM Antibody Titer 399 U/mL (<770)
[2022-02-04 19:24] LABS: Legionella pneumophila Ag Ur Not Detected (Not Detected)
== END 2022-02-01 05:18 | disposition short-term general hospital (02) | DRG 393 ==
LOC: ANHED 18:03 → ANHIMU 20:47
PROVIDERS: Internal Medicine; Internal Medicine Gastroenterology; Internal Medicine Nephrology; Internal Medicine Pulmonary Disease; Nurse Practitioner; Nurse Practitioner Family; Physician Assistant; Surgery; Admitting Provider Internal Medicine; Emergency Provider General Practice; Visit Provider Student in an Organized Health Care Education/Training Program
PROC: 0DJ08ZZ Inspection of Upper Intestinal Tract, Via Natural or Artificial Opening Endoscopic (ICD-10-PCS; CPT 43235; principal; 2022-01-26 14:15)
PROC: 0DJD8ZZ Inspection of Lower Intestinal Tract, Via Natural or Artificial Opening Endoscopic (ICD-10-PCS; CPT 45378; principal; 2022-01-27 13:30)
DX: K64.5 Perianal venous thrombosis (principal); J96.01 Acute respiratory failure with hypoxia; D62 Acute posthemorrhagic anemia; E87.1 Hypo-osmolality and hyponatremia; N17.9 Acute kidney failure, unspecified; E72.20 Disorder of urea cycle metabolism, unspecified; K76.6 Portal hypertension; D68.4 Acquired coagulation factor deficiency; D69.6 Thrombocytopenia, unspecified; K70.31 Alcoholic cirrhosis of liver with ascites; K72.90 Hepatic failure, unspecified without coma; I50.9 Heart failure, unspecified; K64.4 Residual hemorrhoidal skin tags; K64.8 Other hemorrhoids; F10.20 Alcohol dependence, uncomplicated; F17.210 Nicotine dependence, cigarettes, uncomplicated; E80.6 Other disorders of bilirubin metabolism; E87.6 Hypokalemia; E83.42 Hypomagnesemia; R77.8 Other specified abnormalities of plasma proteins; Z20.822 Contact with and (suspected) exposure to COVID-19; Z87.09 Personal history of other diseases of the respiratory system
CPT/HCPCS: 36415; 36430; 36569; 36600; 49083; 71045; 71250; 74177; 76705; 76775; 80048; 80053; 80074; 80202; 81001; 82042; 82105; 82140; 82150; 82248; 82375; 82436; 82533; 82570; 82805; 82945; 83050; 83605; 83615; 83690; 83735; 83880; 83883; 83930; 83935; 84100; 84134; 84155; 84156; 84157; 84165; 84166; 84443; 84484; 85014; 85018; 85025; 85027; 85046; 85055; 85610; 85730; 86738; 86850; 86900; 86901; 86920; 87040; 87070; 87075; 87205; 87449; 87486; 87581; 87633; 87804; 87899; 88104; 88108; 88305; 89051; 93005; 93306; 94002; 94003; 94640; 97161; 97165; 99285; A9270; C1751; C9113; C9803; J0696; J0743; J1170; J1940; J1956; J2060; J2704; J3370; J3411; J3475; J3480; J7030; J7040; J7042; J7050; J7120; J7512; P9016; P9017; P9047; Q9967; U0003; U0005

== ENCOUNTER 2022-03-04 12:44 | Outpatient (CLI) | payer BC, SELFPAY ==
[2022-03-04 13:29] LABS: Anion Gap 6 mmol/L (8-16); Blood Urea Nitrogen 10 mg/dL (7-18); Calcium 8.4 mg/dL (8.5-10.1); Carbon Dioxide 31 mmol/L (21-32); Chloride 102 mmol/L (98-108); Estimated Glomerular Filt Rate > 60; Glucose 116 mg/dL (70-99); Osmolality Calculated 288 mOsm/kg (285-295); Potassium 3.8 mmol/L (3.5-5.1); Sodium 139 mmol/L (136-145)
== END 2022-03-04 12:45 | disposition home or self-care (01) ==
DX: K70.31 Alcoholic cirrhosis of liver with ascites (principal)
CPT/HCPCS: 36415; 80048